=== PATIENT | male | born 1995 | race Caucasian/White ===

== ENCOUNTER 2018-09-15 22:34 | Inpatient (IN) ==
--- NOTE | 2018-09-15 23:04 | Emergency Department Note ---
Disposition Clinical Impression: Dehydration, Elevated bilirubin, Prolonged QT interval, Hypocalcemia, Hypokalemia Disposition: Admitted As Inpatient Condition: Fair Nausea/Vomiting/Diarrhea HPI - General Chief complaint: ED Nausea/Vomiting/Diarrhea Stated complaint: n/v syncope Time Seen by Provider: 09/15/18 22:50 Source: patient, family Mode of arrival: ambulatory Limitations: no limitations Nursing Notes Reviewed: Yes Vital Signs Reviewed: Yes - History of Present Illness HPI Narrative: 23-year-old male past medical history of esophageal strictures for the past 1.5 years with [address] Frederick Holland at this facility. Patient states that he has had long-standing history of intermittent c onstipation, nausea, vomiting for the past 3 days has been getting progressively worse with associated lightheadedness, dizziness, and syncope which occurred prior to presentation this evening. Patient states that he defecated during his syncopal episode but still feels as though he is constipated Patient admits to chest pain, shortness of breath, diffuse abdominal pain, nausea, vomiting, intermittent constipation and diarrhea, patient denies any recent fever/chills, no neck or back pain, no numbness or paresthesias. Pt Subjective Complaint: nausea, vomiting, diarrhea, abdominal pain Onset (ago): day(s) Description of emesis: food contents Associated Abdominal Pain: Yes If pain, Location of pain: diffuse Radiation: diffuse Severity: severe Severity scale (1-10): 10 Quality: stabbing Consistency: Worsening Worsens with: eating Associated symptoms: Reports: chest pain, loss of appetite, nausea/vomiting, shortness of breath - Related Data Previous Rx's Medication Instructions Recorded Metoclopramide [Reglan] 10 mg PO Q6HR PRN #12 tablet 02/08/18 Allergies Allergy/AdvReac Type Severity Reaction Status Date / Time No Known Allergies Allergy Verified 02/08/18 13:03 All systems ED: reviewed and negative except as stated. Review of Systems: As Per HPI Constitutional: Denies: fever, chills Cardiovascular: Reports: chest pain Respiratory: Reports: dyspnea Gastrointestinal: Reports: abdominal pain, nausea, vomiting, diarrhea, constipation. Denies: hematemesis, hematochezia Genitourinary: Denies: hematuria Musculoskeletal: Denies: back pain, neck pain Neurological: Denies: headache, weakness, numbness, paresthesias Past Medical History - Past Medical History Source: patient Medical history: Reports: GERD Surgical history: Reports: appendectomy Psychiatric history: Reports: ADHD - Social History Smoking Status: Current every day smoker Smokeless Tobacco Status: No Alcohol use: Reports: occasionally Drug use: Reports: none Physical Exam - General Limitations: no limitations General appearance: alert, in no apparent distress - Head Head exam: atraumatic, normocephalic, normal inspection - Eye Eye exam: Present: normal appearance, PERRL, EOMI. Absent: scleral icterus - Neck Neck exam: Present: normal inspection, trachea midline - Chest Chest inspection: Present: normal inspection, symmetric chest wall rise - Respiratory Respiratory exam: Present: normal lung sounds bilaterally. Absent: respiratory distress, wheezes, stridor, accessory muscle use, prolonged expiratory phase - Cardiovascular Cardiovascular exam: Present: regular rate, normal rhythm, normal heart sounds, +S1, +S2. Absent: JVD, +S3, +S4 - Abdominal Exam Abdominal exam: Present: soft, tenderness, normal bowel sounds. Absent: distention, guarding, rebound, rigidity, organomegaly - Extremities Exam Extremities exam: Present: normal inspection. Absent: pedal edema - Neurological Exam Neurological exam: Present: alert, oriented X3 - Psychiatric Psychiatric exam: Present: anxious - Skin Skin exam: Present: warm, dry, intact, normal color. Absent: rash, cyanosis, diaphoresis, erythema, pallor, mottled Course Course Narrative: CBC, BMP, EKG/old EKG/troponin CT scan of the abdomen and pelvis Zofran plus phenyl for the management of patient pain and discomfort - Reevaluation(s) Reevaluation #1: Patient refused fentanyl given dose of Toradol Patient complaining of increased mid epigastric pain radiating to his chest EKG shows no acute pathology Patient will be given half milligram of Dilaudid at this time for management of his discomfort. Vital Signs Temperature 97.6 F 09/15/18 22:42 Pulse Rate 106 09/15/18 22:42 Respiratory Rate 18 09/15/18 22:42 Blood Pressure 96/69 09/15/18 22:42 O2 Sat by Pulse Oximetry 99 09/15/18 22:42 Temperature 97.6 F 09/15/18 23:36 Pulse Rate 88 09/16/18 04:23 Respiratory Rate 20 09/16/18 04:23 Blood Pressure 108/70 09/16/18 04:23 O2 Sat by Pulse Oximetry 100 09/16/18 04:23 Oxygen Delivery Oxygen Delivery Room Air Nausea/Vomiting/Diarrhea - [facility] Narrative Medical decision making narrative: Patient admitted to hospitalist medicine service for further evaluation and management of prolonged QT interval with electrolyte abnormalities and hyperbilirubinemia. - Lab Data Lab results reviewed: Yes I reviewed the patient's lab results. Result diagrams: 09/15/18 23:01 09/15/18 23:01 Lab Results 09/15/18 09/15/18 09/15/18 Range/Units 23:01 23:01 23:49 WBC 8.7 (4.3-11.1) K/mcL RBC 5.00 (4.19-5.50) M/mcL Hgb 15.8 (12.9-16.9) g/dL Hct 41.6 (37.5-50.1) % MCV 83.2 (83.0-100.0) fL MCH 31.6 (28.0-33.3) pg MCHC 38.0 H (31.6-35.5) g/dL RDW 12.1 (11.5-14.5) % Plt Count 255 (140-400) K/mcL MPV 10.0 (9.4-12.4) fL Immature Gran % 0.5 (0-4) % Seg Neutrophils % 69.8 % Lymphocytes % 17.4 % Monocytes % 11.4 % Eosinophils % 0.2 % Basophils % 0.7 % Neutrophils # 6.1 (1.6-8.9) K/mcL Lymphocytes # 1.5 (0.6-4.6) K/mcL Monocytes # 1.0 (0.0-1.3) K/mcL Eosinophils # 0.0 (0.0-0.6) K/mcL Basophils # 0.1 (0.0-0.2) K/mcL Immature Plt Fraction 4.6 (1.1-6.1) % Sodium 130 L (136-145) mEq/L Potassium 2.8 L (3.5-5.1) mEq/L Chloride 75 L (98-107) mEq/L Carbon Dioxide 38 H (23-29) mEq/L BUN 30 H (6-20) mg/dL Creatinine 1.34 H (0.70-1.30) mg/dL Est GFR ( Amer) > 60 (> 60) Est GFR (Non-Af Amer) > 60 (> 60) BUN/Creatinine Ratio 22 (6-26) Glucose 121 H (70-105) mg/dL Calculated Osmolality 277 L (280-300) Lactic Acid (0.5-2.2) mmol/L Calcium 10.9 H (8.6-10.3) mg/dL Venous Ioniz Calcium (1.15-1.35) mmol/L Magnesium 2.1 (1.6-2.6) mg/dL Total Bilirubin 2.6 H (0.3-1.0) mg/dL Direct Bilirubin 0.4 H (0.0-0.2) mg/dL Indirect Bilirubin 2.2 H (0.0-1.2) mg/dL AST 26 (13-39) Units/L ALT 13 (7-52) Units/L Alkaline Phosphatase 80 (34-104) Units/L Troponin I < 0.03 (< 0.04) ng/mL Serum Total Protein 9.2 H (6.4-8.9) g/dL Albumin 5.1 (3.5-5.7) g/dL Globulin 4.1 H (2.4-3.5) g/dL Albumin/Globulin Ratio 1.2 (1.1-2.2) Lipase 18 (11-82) Units/L Urine Opiates Screen (Fydukp=242) ng/mL Ur Barbiturates Screen (Ahgqna=195) ng/mL Ur Phencyclidine Scrn (Cutoff=25) ng/mL Ur Amphetamines Screen (Sykfgl=2409) ng/mL U Benzodiazepines Scrn (Zomdkp=529) ng/mL Urine Cocaine Screen (Cutoff= 300) ng/mL U Marijuana (THC) Screen (Cutoff = 50) ng/mL Ur Drug Screen Interp Hepatitis A IgM Ab (Nonreactive) Hep Bs Antigen (Nonreactive) Hep B Core IgM Ab (Nonreactive) Hepatitis C Ab Screen (Nonreactive) 09/15/18 09/15/18 09/16/18 Range/Units 23:49 23:58 00:56 WBC (4.3-11.1) K/mcL RBC (4.19-5.50) M/mcL Hgb (12.9-16.9) g/dL Hct (37.5-50.1) % MCV (83.0-100.0) fL MCH (28.0-33.3) pg MCHC (31.6-35.5) g/dL RDW (11.5-14.5) % Plt Count (140-400) K/mcL MPV (9.4-12.4) fL Immature Gran % (0-4) % Seg Neutrophils % % Lymphocytes % % Monocytes % % Eosinophils % % Basophils % % Neutrophils # (1.6-8.9) K/mcL Lymphocytes # (0.6-4.6) K/mcL Monocytes # (0.0-1.3) K/mcL Eosinophils # (0.0-0.6) K/mcL Basophils # (0.0-0.2) K/mcL Immature Plt Fraction (1.1-6.1) % Sodium (136-145) mEq/L Potassium (3.5-5.1) mEq/L Chloride (98-107) mEq/L Carbon Dioxide (23-29) mEq/L BUN (6-20) mg/dL Creatinine (0.70-1.30) mg/dL Est GFR ( Amer) (> 60) Est GFR (Non-Af Amer) (> 60) BUN/Creatinine Ratio (6-26) Glucose (70-105) mg/dL Calculated Osmolality (280-300) Lactic Acid (0.5-2.2) mmol/L Calcium (8.6-10.3) mg/dL Venous Ioniz Calcium 0.92 L (1.15-1.35) mmol/L Magnesium (1.6-2.6) mg/dL Total Bilirubin (0.3-1.0) mg/dL Direct Bilirubin (0.0-0.2) mg/dL Indirect Bilirubin (0.0-1.2) mg/dL AST (13-39) Units/L ALT (7-52) Units/L Alkaline Phosphatase (34-104) Units/L Troponin I (< 0.04) ng/mL Serum Total Protein (6.4-8.9) g/dL Albumin (3.5-5.7) g/dL Globulin (2.4-3.5) g/dL Albumin/Globulin Ratio (1.1-2.2) Lipase (11-82) Units/L Urine Opiates Screen Negative (Tmushj=439) ng/mL Ur Barbiturates Screen Negative (Rthzjp=645) ng/mL Ur Phencyclidine Scrn Negative (Cutoff=25) ng/mL Ur Amphetamines Screen Negative (Jtskfk=1224) ng/mL U Benzodiazepines Scrn Negative (Boohvm=406) ng/mL Urine Cocaine Screen Negative (Cutoff= 300) ng/mL U Marijuana (THC) Screen Positive H (Cutoff = 50) ng/mL Ur Drug Screen Interp See Below Hepatitis A IgM Ab Nonreactive (Nonreactive) Hep Bs Antigen Nonreactive (Nonreactive) Hep B Core IgM Ab Nonreactive (Nonreactive) Hepatitis C Ab Screen Nonreactive (Nonreactive) 09/16/18 Range/Units 03:16 WBC (4.3-11.1) K/mcL RBC (4.19-5.50) M/mcL Hgb (12.9-16.9) g/dL Hct (37.5-50.1) % MCV (83.0-100.0) fL MCH (28.0-33.3) pg MCHC (31.6-35.5) g/dL RDW (11.5-14.5) % Plt Count (140-400) K/mcL MPV (9.4-12.4) fL Immature Gran % (0-4) % Seg Neutrophils % % Lymphocytes % % Monocytes % % Eosinophils % % Basophils % % Neutrophils # (1.6-8.9) K/mcL Lymphocytes # (0.6-4.6) K/mcL Monocytes # (0.0-1.3) K/mcL Eosinophils # (0.0-0.6) K/mcL Basophils # (0.0-0.2) K/mcL Immature Plt Fraction (1.1-6.1) % Sodium (136-145) mEq/L Potassium (3.5-5.1) mEq/L Chloride (98-107) mEq/L Carbon Dioxide (23-29) mEq/L BUN (6-20) mg/dL Creatinine (0.70-1.30) mg/dL Est GFR ( Amer) (> 60) Est GFR (Non-Af Amer) (> 60) BUN/Creatinine Ratio (6-26) Glucose (70-105) mg/dL Calculated Osmolality (280-300) Lactic Acid 0.5 (0.5-2.2) mmol/L Calcium (8.6-10.3) mg/dL Venous Ioniz Calcium (1.15-1.35) mmol/L Magnesium (1.6-2.6) mg/dL Total Bilirubin (0.3-1.0) mg/dL Direct Bilirubin (0.0-0.2) mg/dL Indirect Bilirubin (0.0-1.2) mg/dL AST (13-39) Units/L ALT (7-52) Units/L Alkaline Phosphatase (34-104) Units/L Troponin I (< 0.04) ng/mL Serum Total Protein (6.4-8.9) g/dL Albumin (3.5-5.7) g/dL Globulin (2.4-3.5) g/dL Albumin/Globulin Ratio (1.1-2.2) Lipase (11-82) Units/L Urine Opiates Screen (Xeiair=396) ng/mL Ur Barbiturates Screen (Grdctx=593) ng/mL Ur Phencyclidine Scrn (Cutoff=25) ng/mL Ur Amphetamines Screen (Piytvm=7529) ng/mL U Benzodiazepines Scrn (Rmnzuk=765) ng/mL Urine Cocaine Screen (Cutoff= 300) ng/mL U Marijuana (THC) Screen (Cutoff = 50) ng/mL Ur Drug Screen Interp Hepatitis A IgM Ab (Nonreactive) Hep Bs Antigen (Nonreactive) Hep B Core IgM Ab (Nonreactive) Hepatitis C Ab Screen (Nonreactive) - Radiology Data Radiology results reviewed: Yes I reviewed the patient's radiology results. Chest X-Ray 09/15/18 23:01 IMPRESSION: No acute disease. D/ / Johnny Arana MD / Johnny Arana MD Interpreting Provider: Johnny Arana MD - EKG Data EKG attestation: Yes I reviewed and interpreted this EKG. EKG results narrative: 1. Patient EKG shows a sinus rhythm with borderline right axis deviation and a prolonged QT interval with a heart of 99 bpm [place] interval of 128 ms, QRS duration of 105 ms, QT/QTc interval 463/595 ms respectively. There are no significant ST segment elevations, depressions, pathologic Q waves, abnormal T-wave inversions, nor any other signs of acute ischemic change. At this time there is no prior EKG available for comparison. 2. 0 400 a.m.: Patient complaining of worsening chest pain Repeat EKG shows sinus rhythm with a slightly prolonged QT interval with a heart of 81 bpm IL interval of 161 ms, QR latter day of 90 ms, QT/QTc interval 506/646 ms, there are no significant ST segment elevations, depressions, patholo gic Q's, abnormal T-wave inversions, or any other signs of acute ischemic change. Patient remained hemodynamically stable. Critical Care Time Critical Care Time: Yes Total Critical Care Time: 45 Attestation: Critical care performed: Time is exclusive of separately billable procedures. Time includes: direct patient care, patient reassessment, coordination of patient care, interpretation of data (laboratory data, radiology data, and respiratory data), review of patient's medical records, medical consultation and documentation of patient care. Procedures included in critical care time: Procedures excluded from critical care time: Attestation Statement - Attestation Attestation: I, Vaibhav Anders DO, examined this patient [id number] and my medical decision-making was reviewed with Dr. Davey Cano, Resident Physician. I agree with the documented findings, disposition and treatment plan as described except to the extent set forth below. I personally supervised and was present for the hale/critical portions of the procedures completed by the resident documented below. Please see my progress notes for details.
[2018-09-15] MEDS ORDERED: 0.9 % Sodium Chloride 500 ML IVC ONE (23:09)
[2018-09-15] MEDS ORDERED: Ondansetron ODT 4 MG TAB.RAPDIS SL ONE (23:10)
[2018-09-15] MEDS ORDERED: Calcium Gluconate 2,000 MG in 0.9 % Sodium Chloride 100 ML IVPB ONE (23:59)
[2018-09-16 00:01] LABS: BUN/Creatinine Ratio 22 (6-26); Blood Urea Nitrogen 30 mg/dL (6-20); Calcium 10.9 mg/dL (8.6-10.3); Carbon Dioxide 38 mEq/L (23-29); Chloride 75 mEq/L (98-107); Glucose 121 mg/dL (70-105); Osmolality,Calculated 277 (280-300); Potassium 2.8 mEq/L (3.5-5.1); Sodium 130 mEq/L (136-145); eGFR For Non-African Americans > 60 (> 60)
[2018-09-16 00:02] LABS: Troponin I < 0.03 ng/mL (< 0.04)
--- NOTE | 2018-09-16 00:07 | Emergency Department Note ---
Disposition Clinical Impression: Dehydration, Elevated bilirubin, Prolonged QT interval, Hypocalcemia, Hypokalemia Disposition: Admitted As Inpatient Condition: Fair Time of Disposition: 03:41 General Adult HPI - General Chief complaint: ED Nausea/Vomiting/Diarrhea Stated complaint: n/v syncope Time Seen by Provider: 09/15/18 22:50 Source: patient, family Mode of arrival: ambulatory Limitations: no limitations - History of Present Illness Pain Scale: 10 - Related Data Previous Rx's Medication Instructions Recorded Metoclopramide [Reglan] 10 mg PO Q6HR PRN #12 tablet 02/08/18 Allergies Allergy/AdvReac Type Severity Reaction Status Date / Time No Known Allergies Allergy Verified 02/08/18 13:03 Constitutional: Denies: fever, chills Cardiovascular: Reports: chest pain Respiratory: Reports: dyspnea Gastrointestinal: Reports: abdominal pain, nausea, vomiting, diarrhea, constipation. Denies: hematemesis, hematochezia Genitourinary: Denies: hematuria Musculoskeletal: Denies: back pain, neck pain Neurological: Denies: headache, weakness, numbness, paresthesias Past Medical History - Past Medical History Medical history: Reports: GERD Surgical history: Reports: appendectomy Psychiatric history: Reports: ADHD - Social History Smoking Status: Never smoker Smokeless Tobacco Status: No Alcohol use: Reports: none, occasionally Drug use: Reports: none Physical Exam - General Limitations: no limitations General appearance: alert, in no apparent distress Course Vital Signs Temperature 97.6 F 09/15/18 22:42 Pulse Rate 106 09/15/18 22:42 Respiratory Rate 18 09/15/18 22:42 Blood Pressure 96/69 09/15/18 22:42 O2 Sat by Pulse Oximetry 99 09/15/18 22:42 Temperature 97.6 F 09/15/18 23:36 Pulse Rate 106 09/15/18 23:36 Respiratory Rate 18 09/15/18 23:36 Blood Pressure 96/69 09/15/18 23:36 O2 Sat by Pulse Oximetry 99 09/15/18 23:36 Oxygen Delivery Oxygen Delivery Room Air Medical Decision Making - Lab Data Result diagrams: 09/15/18 23:01 09/15/18 23:01 Lab Results 09/15/18 09/15/18 09/15/18 Range/Units 23:01 23:01 23:49 WBC 8.7 (4.3-11.1) K/mcL RBC 5.00 (4.19-5.50) M/mcL Hgb 15.8 (12.9-16.9) g/dL Hct 41.6 (37.5-50.1) % MCV 83.2 (83.0-100.0) fL MCH 31.6 (28.0-33.3) pg MCHC 38.0 H (31.6-35.5) g/dL RDW 12.1 (11.5-14.5) % Plt Count 255 (140-400) K/mcL MPV 10.0 (9.4-12.4) fL Immature Gran % 0.5 (0-4) % Seg Neutrophils % 69.8 % Lymphocytes % 17.4 % Monocytes % 11.4 % Eosinophils % 0.2 % Basophils % 0.7 % Neutrophils # 6.1 (1.6-8.9) K/mcL Lymphocytes # 1.5 (0.6-4.6) K/mcL Monocytes # 1.0 (0.0-1.3) K/mcL Eosinophils # 0.0 (0.0-0.6) K/mcL Basophils # 0.1 (0.0-0.2) K/mcL Immature Plt Fraction 4.6 (1.1-6.1) % Sodium 130 L (136-145) mEq/L Potassium 2.8 L (3.5-5.1) mEq/L Chloride 75 L (98-107) mEq/L Carbon Dioxide 38 H (23-29) mEq/L BUN 30 H (6-20) mg/dL Creatinine 1.34 H (0.70-1.30) mg/dL Est GFR ( Amer) > 60 (> 60) Est GFR (Non-Af Amer) > 60 (> 60) BUN/Creatinine Ratio 22 (6-26) Glucose 121 H (70-105) mg/dL Calculated Osmolality 277 L (280-300) Calcium 10.9 H (8.6-10.3) mg/dL Venous Ioniz Calcium (1.15-1.35) mmol/L Total Bilirubin 2.6 H (0.3-1.0) mg/dL Direct Bilirubin 0.4 H (0.0-0.2) mg/dL Indirect Bilirubin 2.2 H (0.0-1.2) mg/dL AST 26 (13-39) Units/L ALT 13 (7-52) Units/L Alkaline Phosphatase 80 (34-104) Units/L Troponin I < 0.03 (< 0.04) ng/mL Serum Total Protein 9.2 H (6.4-8.9) g/dL Albumin 5.1 (3.5-5.7) g/dL Globulin 4.1 H (2.4-3.5) g/dL Albumin/Globulin Ratio 1.2 (1.1-2.2) Lipase 18 (11-82) Units/L Urine Opiates Screen (Bownhx=847) ng/mL Ur Barbiturates Screen (Hxghyu=936) ng/mL Ur Phencyclidine Scrn (Cutoff=25) ng/mL Ur Amphetamines Screen (Fsysbg=1132) ng/mL U Benzodiazepines Scrn (Cvxxiz=239) ng/mL Urine Cocaine Screen (Cutoff= 300) ng/mL U Marijuana (THC) Screen (Cutoff = 50) ng/mL Ur Drug Screen Interp 09/15/18 09/16/18 Range/Units 23:58 00:56 WBC (4.3-11.1) K/mcL RBC (4.19-5.50) M/mcL Hgb (12.9-16.9) g/dL Hct (37.5-50.1) % MCV (83.0-100.0) fL MCH (28.0-33.3) pg MCHC (31.6-35.5) g/dL RDW (11.5-14.5) % Plt Count (140-400) K/mcL MPV (9.4-12.4) fL Immature Gran % (0-4) % Seg Neutrophils % % Lymphocytes % % Monocytes % % Eosinophils % % Basophils % % Neutrophils # (1.6-8.9) K/mcL Lymphocytes # (0.6-4.6) K/mcL Monocytes # (0.0-1.3) K/mcL Eosinophils # (0.0-0.6) K/mcL Basophils # (0.0-0.2) K/mcL Immature Plt Fraction (1.1-6.1) % Sodium (136-145) mEq/L Potassium (3.5-5.1) mEq/L Chloride (98-107) mEq/L Carbon Dioxide (23-29) mEq/L BUN (6-20) mg/dL Creatinine (0.70-1.30) mg/dL Est GFR ( Amer) (> 60) Est GFR (Non-Af Amer) (> 60) BUN/Creatinine Ratio (6-26) Glucose (70-105) mg/dL Calculated Osmolality (280-300) Calcium (8.6-10.3) mg/dL Venous Ioniz Calcium 0.92 L (1.15-1.35) mmol/L Total Bilirubin (0.3-1.0) mg/dL Direct Bilirubin (0.0-0.2) mg/dL Indirect Bilirubin (0.0-1.2) mg/dL AST (13-39) Units/L ALT (7-52) Units/L Alkaline Phosphatase (34-104) Units/L Troponin I (< 0.04) ng/mL Serum Total Protein (6.4-8.9) g/dL Albumin (3.5-5.7) g/dL Globulin (2.4-3.5) g/dL Albumin/Globulin Ratio (1.1-2.2) Lipase (11-82) Units/L Urine Opiates Screen Negative (Mfupgt=788) ng/mL Ur Barbiturates Screen Negative (Rgqplv=319) ng/mL Ur Phencyclidine Scrn Negative (Cutoff=25) ng/mL Ur Amphetamines Screen Negative (Tdhytg=7115) ng/mL U Benzodiazepines Scrn Negative (Loryjr=822) ng/mL Urine Cocaine Screen Negative (Cutoff= 300) ng/mL U Marijuana (THC) Screen Positive H (Cutoff = 50) ng/mL Ur Drug Screen Interp See Below Attestation Statement - Attestation Attestation: I, Vaibhav Anders DO, examined this patient [id number] and my medical decision-making was reviewed with Dr. Davey Cano, Resident Physician. I agree with the documented findings, disposition and treatment plan as described except to the extent set forth below. I personally supervised and was present for the hale/critical portions of the procedures completed by the resident documented below. Please see my progress notes for details. 23-year-old male presents emergency room with complaint of abdominal pain decreased urinary output discomfort dizziness and a syncopal event here today. Patient takes multiple medications for esophageal strictures, constipation. Is followed up with gastroenterology as primary care provider at this facility. He is had significant weight loss as well as decreased by mouth intake. He denies any chest pain or shortness of breath. He has not had any nausea but he does have chronic vomiting and then constipation. Vital signs are stable. Patient is a very thin cachectic appearing male. Does appear to have very poor nutrition. Dentition is poor as well. Trachea is midline. Lungs are clear heart is regular abdomen is soft. He does have tenderness noted diffusely across the abdominal wall. He has decreased bowel output. Extremities are otherwise normal. No signs of trauma or injury. Patient denies any substance abuse history or drug use. He denies any other medications being taken outside of the ones that are prescribed to him. Detailed workup including chest x-ray CT the abdomen CBC chemistry troponin electrolytes will be collected this time. Urine and urine drug screen will also be resulted. Concern is noted for EKG that shows significant only prolonged QTC at over 595. Metabolic sources of being evaluated and treated at this point as well as possible substance abuses. Patient is otherwise stable at this time. Does not gluconate will be given. Disposition will mostly be admission wants a full workup and treatment course I been established. See detailed documentation the physical exam, medical intervention, medical decision-making and disposition in the resident physician's note. No critical care by the patient's treatment course at this time. 0215 CT the abdomen is unremarkable for any acute pathology at this time. Unknown etiology to the elevated bilirubin at this point. Patient on bedside buttock ultrasound completed and we will discuss admission for symptomatic control of his nausea and vomiting along with evaluation for the prolonged QT syndrome. Patient is otherwise clinically stable at this point. Will monitor closely and then disposition will be determined. Patient does have a low calcium which is artery been repleted at this time [address] scan of the abdomen. Bedside buttock ultrasound does not show any visible signs of pericholecystic fluid. Patient has what appears to be an intrahepatic bilirubin related issue. He also is QT prolongation. The hospitalist Dr. Eden reviewed the case. Potassium as well as calcium have been repleted. Patient will be monitored closely until the admission process is completed. No other recommendations or concerns noted. Patient's family was informed and they are comfortable this plan.
[2018-09-16 00:19] LABS: Albumin 5.1 g/dL (3.5-5.7); Albumin/Globulin Ratio 1.2 (1.1-2.2); Bilirubin,Direct 0.4 mg/dL (0.0-0.2); Bilirubin,Indirect 2.2 mg/dL (0.0-1.2); Bilirubin,Total 2.6 mg/dL (0.3-1.0); Globulin 4.1 g/dL (2.4-3.5); Total Protein 9.2 g/dL (6.4-8.9)
[2018-09-16 00:22] LABS: Eosinophils % 0.2 %; Immature Granulocytes % 0.5 % (0-4)
[2018-09-16 00:26] LABS: Basophils # 0.1 K/mcL (0.0-0.2); Basophils % 0.7 %; Hematocrit 41.6 % (37.5-50.1); Hemoglobin 15.8 g/dL (12.9-16.9); Immature Platelets 4.6 % (1.1-6.1); Lymphocytes # 1.5 K/mcL (0.6-4.6); Lymphocytes % 17.4 %; Mean Corpuscular Hemoglobin 31.6 pg (28.0-33.3); Mean Corpuscular Volume 83.2 fL (83.0-100.0); Monocytes % 11.4 %; Neutrophils # 6.1 K/mcL (1.6-8.9); Platelet Count 255 K/mcL (140-400); Red Cell Distribution Width 12.1 % (11.5-14.5); Segmented Neutrophils % 69.8 %
[2018-09-16] MEDS: *HR* FentaNYL (PF) 100 MCG/2 ML VIAL IVP ONE ×2 (00:26→02:06)
[2018-09-16 00:28] LABS: Amphetamine Screen,Urine Negative ng/mL (Cutoff=1000); Barbiturate Screen,Urine Negative ng/mL (Cutoff=200); Benzodiazepines Screen,Urine Negative ng/mL (Cutoff=200); Cannabinoid Screen,Urine Positive ng/mL (Cutoff = 50); Cocaine Screen,Urine Negative ng/mL (Cutoff= 300); Opiate Screen,Urine Negative ng/mL (Cutoff=300); Phencyclidine Screen,Urine Negative ng/mL (Cutoff=25)
[2018-09-16] MEDS ORDERED: Ketorolac 15 MG/ML VIAL IVP ONE (00:46)
[2018-09-16] MEDS ORDERED: 0.9 % Sodium Chloride 1,000 ML IVC ONE (00:46)
[2018-09-16 00:59] LABS: VBG Ionized Calcium 0.92 mmol/L (1.15-1.35)
[2018-09-16 03:38] LABS: Magnesium 2.1 mg/dL (1.6-2.6)
[2018-09-16] MEDS ORDERED: *HR* HYDROmorphone (PF) 1 MG/ML SYRINGE IVP ONE (03:58)
[2018-09-16 04:11] LABS: Hepatitis B Surface Antigen Nonreactive (Nonreactive)
[2018-09-16 04:39] LABS: Hepatitis C Virus Antibody Nonreactive (Nonreactive)
[2018-09-16 04:40] LABS: Hepatitis B Core IgM Nonreactive (Nonreactive)
[2018-09-16 04:41] LABS: Hepatitis A Antibody IgM Nonreactive (Nonreactive)
[2018-09-16] MEDS ORDERED: Naloxone 0.4 MG/ML INJ IVP PRN (05:28)
--- NOTE | 2018-09-16 06:34 | Internal Med History&Physical ---
<Kofi Gardiner P - Last Filed: 09/16/18 06:49> Date of Encounter: 09/16/18 Time of Encounter: 04:45 Internal Medicine - H&P: HPI Chief complaint: Abdominal Pain Admitted From: Home Plans for Post Hospital Care: Home History of present illness: Mr. Calderón is a 23 year old male with past medical history significant for GERD and esophageal stricture who presents for complaints of worsening chronic abdominal pain and episode of syncope. Since May has been having abdominal pain and substernal chest pain that he describes as intermittent and stabbing. Pain is made worse with PO intake. Pain is associated with shortness of breath, feeling like his throat is tightening, nausea, vomiting, constipation, cramping, and dizziness. Denies any blood in vomit or stool. Reports dizziness has been getting worse over past few weeks but never had an episode of syncope until today while standing in his kitchen and grandmother reports he lost consciousness for no longer than a minute. Reports he has vomiting daily and has had 17 pound weight loss in the last 2-3 weeks. Last bowel movement was today but has not had previous significant bowel movement for past two weeks. ER reported EKG as sinus rhythm with prolonged QT interval (initial EKG QT of 463 and QTc of 595) and no signs of ischemic change. ER obtained CT of abdomen/pelvis that was unremarkable and showed no abnormality. In addition to CT, bedside ultrasound was completed which reported no signs of pericholecystic fluid. ER also obtained chest xray which showed no acute disease. ER toxicology screen was negative other than for marijuana. Currently still reporting abdominal and chest pain in ER after receiving toradol and dilaudid. In addition to pain medication, received fluids, electrolyte replacement, and nausea medication while in ER. Currently denies any headache, numbness, tingling, nausea, cough, or chills. Follows regularly with [facility] and PCP for above mentioned problems. Has been told by previous providers that his symptoms may have a psychiatric component as well. Has had 3 dilations, multiple EGD's a nd colonoscopies that he reports has only found esophageal stricture, polyp, and hemorrhoids. Recently sought suggestions for further GI care from his health insurance whom suggested [facility] in [place], [place] whom he recently seen and has outpatient testing scheduled with this week. Denies any alcohol, tobacco, or drug use despite toxicology report previously mentioned. Past Med Surg Social Fam HX - Past Medical History Medical history: GERD Psychiatric history: ADHD - Past Surgical History Surgical History: appendectomy - Social History Smoking Status: Never smoker Smokeless Tobacco Status: No Alcohol use: none, occasionally Drug use: none Internal Medicine - H&P: Meds Metoclopramide [Reglan] 10 mg PO Q6HR PRN #12 tablet 02/08/18 [Rx] Allergy/AdvReac Type Severity Reaction Status Date / Time No Known Allergies Allergy Verified 02/08/18 13:03 All Systems PM: A 10-system review of systems was performed and is negative for pertinent findings except as documented above in the HPI. - Constitutional Vitals: Temp Pulse Resp BP Pulse Ox 97.6 F 88 20 108/70 100 09/15/18 23:36 09/16/18 04:23 09/16/18 04:23 09/16/18 04:23 09/16/18 04:23 Exam: General: Alert and oriented. Appears malnourished. Skin:Pale, no rash, no lesions. HEENT:Pupils equal, round and reactive. Cardiovascular:Normal S1 & S2, no rubs, murmurs or gallops. No JVD. Pulse regular. Lungs:Normal breath sounds, no wheezes or crackles. Abdomen:Soft, tender to palpation throughout, no rigidity, no palpable mass. Extremities:No deformity, no edema or tenderness, no joint swelling or clubbing. Neurological:Normal cognition and motor skills. Pulses:Carotid and radial pulses normal +2. Rest of the physical exam is non contributory. Internal Med - H&P Results - Labs CBC & Chem 7: 09/15/18 23:01 09/15/18 23:01 Labs: Short CBC 09/15/18 Range/Units 23:01 WBC 8.7 (4.3-11.1) K/mcL Hgb 15.8 (12.9-16.9) g/dL Hct 41.6 (37.5-50.1) % Plt Count 255 (140-400) K/mcL Neutrophils # 6.1 (1.6-8.9) K/mcL BMP 09/15/18 23:01 Sodium 130 L Potassium 2.8 L Chloride 75 L Carbon Dioxide 38 H BUN 30 H Creatinine 1.34 H Glucose 121 H Calcium 10.9 H Cardiac Enzymes 09/15/18 Range/Units 23:01 Troponin I < 0.03 (< 0.04) ng/mL Liver Function 09/15/18 Range/Units 23:49 Total Bilirubin 2.6 H (0.3-1.0) mg/dL Direct Bilirubin 0.4 H (0.0-0.2) mg/dL AST 26 (13-39) Units/L ALT 13 (7-52) Units/L Alkaline Phosphatase 80 (34-104) Units/L Albumin 5.1 (3.5-5.7) g/dL - Impressions ITS Impressions Chest X-Ray 09/15/18 23:01 IMPRESSION: No acute disease. D/ / Johnny Arana MD / Johnny Arana MD Interpreting Provider: Johnny Arana MD - Assessment and Plan (1) Abdominal pain Current Visit: Yes Status: Acute Assessment and plan: ER obtained CT abdomen and pelvis and bedside ultrasound no significant finding s. Abdominal ultrasound ordered. GI consult ordered, will need called in a.m. Protonix ordered. NPO. Pain control with PRN pain medications. Received 4L fluid bolus in ER. Continue MIVF. Qualifiers: Abdominal location: generalized Qualified Code(s): R10.84 - Generalized abdominal pain (2) Chest pain Current Visit: Yes Status: Chronic Assessment and plan: Likely secondary to nausea/vomiting. Initial troponin negative, serial troponins ordered. Continuous cardiac monitoring. Echocardiogram ordered. Cardiology consult ordered, will need called in a.m. Qualifiers: Chest pain type: unspecified Qualified Code(s): R07.9 - Chest pain, unspecified (3) Prolonged QT interval Current Visit: Yes Status: Acute Assessment and plan: Likely secondary to electrolyte imbalances. Cardiology consult ordered, will need called in a.m. (4) Increased bilirubin level Current Visit: Yes Status: Acute Assessment and plan: Unclear etiology. Repeat labs ordered. GI consult ordered, will need called in a.m. (5) Hyponatremia Current Visit: Yes Status: Acute Assessment and plan: Likely secondary to poor intake and vomiting. Received 4L bolus in ER. Repeat labs ordered. (6) Hypocalcemia Current Visit: Yes Status: Acute Assessment and plan: Likely secondary to poor intake and vomiting. Replacement ordered in ER. Repeat labs ordered. (7) Hypokalemia Current Visit: Yes Status: Acute Assessment and plan: Likely secondary to poor intake and vomiting. Replacement ordered in ER. Repeat labs ordered. (8) Nausea & vomiting Current Visit: Yes Status: Acute Assessment and plan: NPO. Control with PRN nausea medications. Qualifiers: Vomiting Intractability: unspecified Qualified Code(s): R11.2 - Nausea with vomiting, unspecified (9) Syncope Current Visit: Yes Status: Acute Assessment and plan: Reports single syncopal episode at home. Dehydration vs prolonged QT. Echocardiogram ordered. Orthostatics ordered. Cardiology consult ordered, will need called in a.m. Qualifiers: Syncope type: unspecified Qualified Code(s): R55 - Syncope and collapse - Time Spent With Patient Total time spent is greater than 50% in coordination of care (as documented) at patient's floor/unit and/or counseling patient: <Yash Eden - Last Filed: 09/16/18 07:36> Date of Encounter: 09/16/18 Time of Encounter: 06:10 - Constitutional Constitutional: no chills, no fever(s) - EENT Ears: no ear pain, no tinnitus Nose, mouth and throat: dry mouth, odynophagia, sore throat, no nasal congestion, no sinus pressure - Cardiovascular Cardiovascular ROS IM: chest pain, syncope, no dyspnea, no dyspnea on exertion - Respiratory Respiratory: no cough, no hemoptysis, no chest congestion, no excessive phlegm production - Gastrointestinal Gastrointestinal: abdominal pain, constipation, heartburn, nausea, vomiting, no coffee ground emesis, no hematemesis, no hematochezia, no melena - Genitourinary Genitourinary ROS male: no dysuria, no flank pain, no nocturia - Integumentary Integumentary IM: no rash, no jaundice - Neurological Neurological ROS: dizziness, no focal weakness, no frequent falls, no headac he(s) - Psychiatric Psychiatric: anxiety - Endocrine Endocrine IM: no polydipsia, no polyuria - Constitutional Vitals: Temp Pulse Resp BP Pulse Ox 97.6 F 91 16 141/71 100 09/16/18 05:25 09/16/18 05:25 09/16/18 05:25 09/16/18 05:25 09/16/18 05:25 General appearance: Present: A&O X 3 - Eye Eye exam: Present: EOMI, PERRL. Absent: scleral icterus Pupils: Present: normal accommodation - ENT ENT exam: Present: mucous membranes dry, normal exam Additional comments: temporal wasting - Neck Neck exam general surgery: Present: full ROM, supple, trachea midline. Absent: tenderness, nuchal rigidity, thyromegaly - Respiratory Respiratory exam: Present: CTAB. Absent: chest wall tenderness, rales, rhonchi, wheezes - Cardiovascular Cardiovascular exam: Present: RRR, +S1, +S2. Absent: diastolic murmur, systolic murmur - GI/Abdominal GI/Abdominal exam: Present: soft, tenderness (epigastric). Absent: guarding, hepatomegaly, rebound, splenomegaly, no peritoneal signs - Extremities Exam Extremities exam: Present: full ROM, normal capillary refill, warm, radial pulses palpable and symmetrical. Absent: pedal edema, tenderness - Back Exam Back exam: Absent: CVA tenderness (L), CVA tenderness (R) - Neurological Exam Neurological exam: Present: alert, CN II-XII intact, oriented X3, strengths equal and symetr throughout - Psychiatric Psychiatric exam: Present: anxious Internal Med - H&P Results - Labs CBC & Chem 7: 09/15/18 23:01 09/15/18 23:01 Labs: Short CBC 09/15/18 Range/Units 23:01 WBC 8.7 (4.3-11.1) K/mcL Hgb 15.8 (12.9-16.9) g/dL Hct 41.6 (37.5-50.1) % Plt Count 255 (140-400) K/mcL Neutrophils # 6.1 (1.6-8.9) K/mcL BMP 09/15/18 23:01 Sodium 130 L Potassium 2.8 L Chloride 75 L Carbon Dioxide 38 H BUN 30 H Creatinine 1.34 H Glucose 121 H Calcium 10.9 H Cardiac Enzymes 09/15/18 Range/Units 23:01 Troponin I < 0.03 (< 0.04) ng/mL Liver Function 09/15/18 Range/Units 23:49 Total Bilirubin 2.6 H (0.3-1.0) mg/dL Direct Bilirubin 0.4 H (0.0-0.2) mg/dL AST 26 (13-39) Units/L ALT 13 (7-52) Units/L Alkaline Phosphatase 80 (34-104) Units/L Albumin 5.1 (3.5-5.7) g/dL - Impressions ITS Impressions Chest X-Ray 09/15/18 23:01 IMPRESSION: No acute disease. D/ / Johnny Arana MD / Johnny Arana MD Interpreting Provider: Johnny Arana MD - Assessment and Plan (1) Prolonged QT interval Current Visit: Yes Status: Acute (2) Hypocalcemia Current Visit: Yes Status: Acute (3) Hypokalemia Current Visit: Yes Status: Acute (4) Abdominal pain Current Visit: Yes Status: Acute Qualifiers: Abdominal location: generalized Qualified Code(s): R10.84 - Generalized abdominal pain (5) Chest pain Current Visit: Yes Status: Chronic Qualifiers: Chest pain type: unspecified Qualified Code(s): R07.9 - Chest pain, unspecified (6) Hyponatremia Current Visit: Yes Status: Acute (7) Nausea & vomiting Current Visit: Yes Status: Acute Qualifiers: Vomiting Intractability: unspecified Qualified Code(s): R11.2 - Nausea with vomiting, unspecified (8) Increased bilirubin level Current Visit: Yes Status: Acute (9) Syncope Current Visit: Yes Status: Acute Qualifiers: Syncope type: unspecified Qualified Code(s): R55 - Syncope and collapse - Time Spent With Patient Total time spent is greater than 50% in coordination of care (as documented) at patient's floor/unit and/or counseling patient: - Attending Attestation I discussed the patient case, [place], review of systems, lab data, and imaging findings with Paul Gardiner CNP. I then saw and examined patient independently. I reviewed old records and most recent endoscopy reports as well. He complains of symptoms and pain out of proportion to exam. He has significant nausea vomiting, muscle wasting, temporal wasting, and dehydration. We will proceed with GI consultation, cardio consultation, workup report for GI and cardiac issues. If these are all negative, I highly recommend psychiatry consultation as I am quite concerned about either Munchhausen's disease and/or anorexia nervosa. However, before considering such diagnoses, cardiac and GI workup need to be pursued first. Other than my comments above and documented exam findings, I agree with Paul's assessment and plan.
[2018-09-16] MEDS ORDERED: Pantoprazole 80 MG in 0.9 % Sodium Chloride 50 ML IVPB ONE (06:52)
[2018-09-16] MEDS ORDERED: Potassium Chloride 40 MEQ, Lidocaine 1% 2 ML in D5% in Water 500 ML IVPB ONE ×2 (07:00→21:00)
[2018-09-16 08:09] LABS: Albumin 4.1 g/dL (3.5-5.7); Albumin/Globulin Ratio 1.5 (1.1-2.2); Bilirubin,Direct 0.2 mg/dL (0.0-0.2); Bilirubin,Indirect 1.7 mg/dL (0.0-1.2); Bilirubin,Total 1.9 mg/dL (0.3-1.0); Globulin 2.7 g/dL (2.4-3.5); Total Protein 6.8 g/dL (6.4-8.9)
[2018-09-16 08:18] LABS: Alanine Aminotransferase 10 Units/L (7-52); Albumin 4.1 g/dL (3.5-5.7); Albumin/Globulin Ratio 1.4 (1.1-2.2); Alkaline Phosphatase 62 Units/L (34-104); Aspartate Amino Transferase 22 Units/L (13-39); BUN/Creatinine Ratio 28 (6-26); Blood Urea Nitrogen 27 mg/dL (6-20); Calcium 9.9 mg/dL (8.6-10.3); Carbon Dioxide 35 mEq/L (23-29); Chloride 83 mEq/L (98-107); Globulin 2.9 g/dL (2.4-3.5); Glucose 80 mg/dL (70-105); Osmolality,Calculated 276 (280-300); Potassium 1.9 mEq/L (3.5-5.1); Sodium 131 mEq/L (136-145); eGFR For Non-African Americans > 60 (> 60)
--- NOTE | 2018-09-16 09:03 | Cardiology Consult Note ---
Date of Encounter: 09/16/18 Time of Encounter: 09:00 Assessment and Plan (1) Chest pain Current Visit: Yes Status: Chronic Per Cardiology: Atypical. Reproducible on exam and with palpation with deep inspiration. Troponins negative. Echo pending. Qualifiers: Chest pain type: unspecified Qualified Code(s): R07.9 - Chest pain, unspecified (2) Hypokalemia Current Visit: Yes Status: Acute Per Cardiology: Patient severely hypokalemic. No known history of hypokalemia. Discussed with Dr. Jacquelin Ortega, recommendations for nephrology consult-- consult ordered. Also recommend GI evaluation. (3) Prolonged QT interval Current Visit: Yes Status: Acute Per Cardiology: ECG reveals Dr. Jacquelin Ortega, suspect QT prolongation related to U waves with hypokalemia. Recommend replenish potassium, nephrology consulted, and recs to transfer to higher acuity floor to monitor telemetry until potassium normalized. We will monitor ECG daily. Need to monitor telemetry. (4) Syncope Current Visit: Yes Status: Acute Per Cardiology: Unwitnessed. Occurred and setting of nausea and vomiting with decreased by mouth intake and weight loss. Telemetry shows average heart rate 82, sinus rhythm, no significant events appreciated. Continue to monitor telemetry. Qualifiers: Syncope type: unspecified Qualified Code(s): R55 - Syncope and collapse (5) Nausea & vomiting Current Visit: Yes Status: Chronic Per Cardiology: Apparent history of GERD and esophageal stricture. Had EGD and colonoscopy completed May 2018. Suspect contributing factor to hypokalemia. Recommend GI consult. Qualifiers: Vomiting Intractability: unspecified Qualified Code(s): R11.2 - Nausea with vomiting, unspecified Discussion w patient/family: The assessment and plan as outlined above was discussed with the patient and/or family members who expressed understanding and agreement. All questions were answered. Thank you for involving us in the care of your patient. Please call with any questions. History of Present Illness Consult date: 09/16/18 Consult reason: QT Prolongation, CP, Syncope Chief complaint: CP History of present illness: Mr. Calderón is a 23 year old male with a relevant past medical history of GERD, esophageal stricture, ADHD. Hx of appendectomy. Cardiology consult for chest pain, concerns of QT prolongation, and syncope. Patient seen with family at bedside. He reports chronic midsternal sharp stabbing chest pains constantly for the past one and half years. Symptoms worsened today with palpation and deep inspiration. Denies any recollection of acute trauma. Has not had previous cardiac workup. Reports history of EGD and colonoscopies for his GERD and esophageal stricture. He reports he continues to experience difficulty with swallowing. He reports about a 10-15 pound weight loss over the past few months-- reports baseline weight about 125 pounds. He also reports difficulty with nausea and vomiting and today he felt a flushing sensation in his head reports he fell to the floor and passed out. Denied any loss of bowel or bladder. Was not witnessed. Denies any history of seizures. He denies any alcohol use, nicotine abuse, recreational drug use. Patient has no known history of hypokalemia. Past Med Surg Social Fam HX - Past Medical History Attestation: Yes The following information was validated with the patient. Source: patient, old records reviewed, obtained from family Medical history: GERD Psychiatric history: ADHD - Past Surgical History Surgical History: appendectomy - Social History Smoking Status: Never smoker Smokeless Tobacco Status: No Alcohol use: none, occasionally Drug use: none - Family History Paternal Grandfather Hx Family Cardiac Disorders: Yes ([place]) Hx Family Endocrine Disorder: Yes (Diabetes) Paternal Grandmother Hx Family Cancer: Yes (colon) Hx Family Endocrine Disorder: Yes (diabetes) Father Hx Family Cardiac Disorders: Yes Medications and Allergies Metoclopramide [Reglan] 10 mg PO Q6HR PRN #12 tablet 02/08/18 [Rx] Allergy/AdvReac Type Severity Reaction Status Date / Time No Known Allergies Allergy Verified 02/08/18 13:03 All Systems Review: The remainder of the systems were reviewed and are negative - Constitutional Constitutional: weakness, weight loss - Cardiovascular Cardiovascular: as per HPI, chest pain at rest - Gastrointestinal Gastrointestinal: constipation, dysphagia, nausea Physical Examination Vital Signs, Last 4 Hours Temp Pulse Resp BP Pulse Ox 09/16/18 07:54 98.1 F 96 19 96/56 97 09/16/18 05:25 97.6 F 91 16 141/71 100 General: Conversant, No Apparent Distress, Other (emaciated) HEENT: Atraumatic, Normocephaly, Mucus Membranes Moist Neck: No JVD, Normal carotid pulses Cardiac: Reg Rate and Rhythm, Normal S1 and S2, No Murmur Lungs: Normal Breath Sounds, No Wheeze, Rales, Rhonchi Neuro: Alert and responsive, No focal deficits noted Abdomen: Soft, Non-Tender Skin: No rashes noted on visualized skin Musculoskeletal: No Chest Wall Tenderness Extremities: No Clubbing, No Cyanosis, No Edema, Normal Pulses Results 09/15/18 23:01 09/16/18 06:31 Lab Results Laboratory Tests 09/15/18 09/15/18 09/15/18 23:01 23:01 23:58 Hgb 15.8 Hct 41.6 Potassium 2.8 L Creatinine Est GFR (Non-Af Amer) Magnesium AST ALT Troponin I < 0.03 U Marijuana (THC) Screen Positive H 09/16/18 09/16/18 09/16/18 06:31 08:58 08:58 Hgb Hct Potassium 1.9 L* D Creatinine 0.96 Est GFR (Non-Af Amer) > 60 Magnesium 1.7 AST 22 ALT 10 Troponin I < 0.03 U Marijuana (THC) Screen ITS Impressions Chest X-Ray 09/15/18 23:01 IMPRESSION: No acute disease. D/ / Johnny Arana MD / Johnny Arana MD Interpreting Provider: Johnny Arana MD Active Medications Potassium Chloride 40 meq/ (Lidocaine 2 ml/ Dextrose) 522 mls @ 130.5 mls/hr IVPB ONCE ONE Stop: 09/16/18 10:59 Last Admin: 09/16/18 08:25 Dose: 130.5 mls/hr Documented by: Potassium Chloride/Sodium Chloride (Kcl 40meq In 0.9% Sodium Chloride) 40 meq in 1,000 mls @ 125 mls/hr IVC .Q8H STUART Stop: 03/18/19 08:46 Naloxone HCl (Narcan) 0.4 mg IVP Q2MPRN PRN PRN Reason: SEE COMMENTS Stop: 03/18/19 05:29 - Imaging and Cardiology Echo: pending - EKG Interpretation EKG results cardiology: personally reviewed (reviewed with Dr. Jacquelin Ortega) Consult Discharge Plan - Plan Referrals: Jennifer,Juliocesar D, DO [Primary Care Provider] - (Appointment has been requested. )
[2018-09-16 09:14] LABS: VBG Ionized Calcium 1.01 mmol/L (1.15-1.35)
[2018-09-16 11:06] LABS: Hematocrit 32.4 % (37.5-50.1); Hemoglobin 12.2 g/dL (12.9-16.9); Mean Corpuscular Hemoglobin 31.4 pg (28.0-33.3); Mean Corpuscular Volume 83.5 fL (83.0-100.0); Mean Platelet Volume 9.4 fL (9.4-12.4); Platelet Count 184 K/mcL (140-400); Red Blood Count 3.88 M/mcL (4.19-5.50); Red Cell Distribution Width 12.6 % (11.5-14.5)
[2018-09-16 11:07] LABS: Mean Corpuscular HGB Conc 37.7 g/dL (31.6-35.5)
[2018-09-16] MEDS: 0.9 % Sodium Chloride w KCl 40 MEQ/1,000 ML MLS IVC SCH ×2 (11:19→20:01)
--- NOTE | 2018-09-16 15:35 | Event Note ---
Date of Encounter: 09/16/18 Time of Encounter: 15:34 Evaluated patient earlier today. Continue to keep nothing by mouth. IV fluids. Replace potassium aggressively. Will give a dose of magnesium sulfate and also calcium gluconate. Antiemetics as needed. Recheck potassium levels after supplementation. Monitor vital signs closely. Patient's urine drug screen was positive for marijuana. Suspect cannabinoid hyperemesis syndrome.
[2018-09-16 21:22] LABS: VBG Ionized Calcium 1.05 mmol/L (1.15-1.35)
[2018-09-16 21:52] LABS: BUN/Creatinine Ratio 22 (6-26); Blood Urea Nitrogen 18 mg/dL (6-20); Calcium 8.6 mg/dL (8.6-10.3); Carbon Dioxide 30 mEq/L (23-29); Chloride 96 mEq/L (98-107); Glucose 93 mg/dL (70-105); Osmolality,Calculated 280 (280-300); Potassium 2.5 mEq/L (3.5-5.1); Sodium 134 mEq/L (136-145); eGFR For Non-African Americans > 60 (> 60)
--- NOTE | 2018-09-16 22:50 | Nephrology Consult Note ---
Date of Encounter: 09/16/18 Time of Encounter: 12:00 Past Med Surg Social Fam HX - Past Medical History Medical history: GERD Psychiatric history: ADHD - Past Surgical History Surgical History: appendectomy - Social History Smoking Status: Never smoker Smokeless Tobacco Status: No Alcohol use: none, occasionally Drug use: none - Family History Paternal Grandfather Hx Family Cardiac Disorders: Yes ([place]) Hx Family Endocrine Disorder: Yes (Diabetes) Paternal Grandmother Hx Family Cancer: Yes (colon) Hx Family Endocrine Disorder: Yes (diabetes) Father Hx Family Cardiac Disorders: Yes Medications and Allergies Hydrocortisone [Proctosol-Hc] 1 appl RC BID PRN 09/16/18 [History] Hydrocortisone/Pramoxine [Analpram Hc 2.5%-1% Lotion] 1 appl RC TID PRN 09/16/18 [History] Pantoprazole Sodium 40 mg PO DAILY 09/16/18 [History] dimenhyDRINATE [Dramamine] 50 mg PO DAILY PRN 09/16/18 [History] Allergy/AdvReac Type Severity Reaction Status Date / Time No Known Allergies Allergy Verified 02/08/18 13:03 Exam - Vital Signs Vital signs: Initial Vital Signs Temp Pulse Resp BP Pulse Ox 97.6 F 106 18 96/69 99 09/15/18 22:42 09/15/18 22:42 09/15/18 22:42 09/15/18 22:42 09/15/18 22:42 Vital Signs - Last 8 Hours Temp Pulse Resp BP Pulse Ox 09/16/18 20:13 98.5 F 80 17 98/65 100 Intake and Output 09/16/18 09/16/18 09/16/18 07:59 15:59 23:59 Intake Total 1830 / 3768 626 / 3768 1312 / 3768 Output Total 550 / 550 Balance 1830 / 3218 626 / 3218 762 / 3218 Intake: IV Fluids 1830 / 3768 626 / 3768 1312 / 3768 0.9 % Sodium Chloride 1,000 ML 1000 / 1000 @ 3750 mls/hr IVC .Q16M ONE Rx# :[id number] 0.9 % Sodium Chloride 500 ML @ 500 / 500 999 mls/hr IVC .Q31M ONE Rx#: [id number] KCl 40mEq in 0.9% Sodium 1202 / 1202 Chloride 40 meq In 1,000 ml @ 125 mls/hr IVC .Q8H [facility] Rx#: [id number] Calcium Gluconate 1,000 MG In 0 230 / 340 110 / 340 .9 % Sodium Chloride 100 ML @ 220 mls/hr IVPB ONCE ONE Rx#: [id number] Magnesium Sulfate 2 GM In 0.9 % 104 / 104 Sodium Chloride 100 ML @ 104 mls/hr IVPB ONCE ONE Rx#: [id number] Potassium Chloride 10 mEq/100mL 100 / 100 10 meq In 100 ml @ 100 mls/hr IVPB Q1H [facility] Rx#:[id number] KCl 40 MEQ Xylocaine 2 ML In 522 / 522 Dextrose 5% 500 ML @ 130.5 mls/ hr IVPB ONCE ONE Rx#:[id number] Oral 0 / 0 Output: Urine 550 / 550 Other: Meal Lunch Percent of Meal Consumed 0% # Voids 0 Weight 47.9 kg 51 kg Patient Weight 09/16/18 23:59 Weight 51 kg Results - Lab Results 09/16/18 06:31 09/16/18 21:05 Most recent lab results 09/16/18 09/16/18 21:05 21:05 Calcium 8.6 Magnesium 1.8 Consult Discharge Plan - Plan Referrals: Juliocesar Rodriguez DO [Primary Care Provider] - (Appointment has been requested. )
[2018-09-16] MEDS: Lidocaine Viscous Oral Soln 15 ML SOLUTION MM PRN (23:56)
[2018-09-17] MEDS ORDERED: Ketorolac 15 MG/ML VIAL IVP ONE (00:28)
[2018-09-17 04:50] LABS: VBG Ionized Calcium 1.12 mmol/L (1.15-1.35)
[2018-09-17 05:12] LABS: BUN/Creatinine Ratio 22 (6-26); Blood Urea Nitrogen 17 mg/dL (6-20); Calcium 8.7 mg/dL (8.6-10.3); Carbon Dioxide 30 mEq/L (23-29); Chloride 97 mEq/L (98-107); Glucose 87 mg/dL (70-105); Magnesium 2.1 mg/dL (1.6-2.6); Osmolality,Calculated 281 (280-300); Potassium 2.6 mEq/L (3.5-5.1); Sodium 135 mEq/L (136-145); eGFR For Non-African Americans > 60 (> 60)
[2018-09-17 05:37] LABS: Basophils % 0.8 %; Eosinophils # 0.1 K/mcL (0.0-0.6); Eosinophils % 1.2 %; Hematocrit 29.9 % (37.5-50.1); Hemoglobin 11.1 g/dL (12.9-16.9); Immature Granulocytes % 0.2 % (0-4); Immature Platelets 3.3 % (1.1-6.1); Lymphocytes # 1.7 K/mcL (0.6-4.6); Lymphocytes % 32.8 %; Mean Corpuscular Hemoglobin 31.2 pg (28.0-33.3); Mean Platelet Volume 9.8 fL (9.4-12.4); Monocytes # 0.4 K/mcL (0.0-1.3); Monocytes % 8.5 %; Neutrophils # 2.8 K/mcL (1.6-8.9); Platelet Count 134 K/mcL (140-400); Red Blood Count 3.56 M/mcL (4.19-5.50); Red Cell Distribution Width 12.2 % (11.5-14.5); Segmented Neutrophils % 56.5 %
[2018-09-17 05:38] LABS: Mean Corpuscular HGB Conc 37.1 g/dL (31.6-35.5)
[2018-09-17] MEDS ORDERED: Pantoprazole 40 MG VIAL IVP ONE (05:46)
[2018-09-17] MEDS ORDERED: Potassium Chloride 40 MEQ, Lidocaine 1% 2 ML in D5% in Water 500 ML IVPB ONE ×2 (07:53→18:45)
--- NOTE | 2018-09-17 07:56 | Internal Med Progress Note ---
<Emeka Okeefe - Last Filed: 09/17/18 12:37> Hospitalist Progress Note - Encounter Date of Encounter: 09/17/18 Time of Encounter: 10:20 - Exam Vitals: Temp Pulse Resp BP Pulse Ox 97.9 F 78 17 101/61 100 09/17/18 07:48 09/17/18 07:48 09/17/18 07:48 09/17/18 07:48 09/17/18 07:48 - Assessment and Plan (1) Prolonged QT interval Current Visit: Yes Status: Acute (2) Hypocalcemia Current Visit: Yes Status: Acute (3) Hypokalemia Current Visit: Yes Status: Acute (4) Abdominal pain Current Visit: Yes Status: Acute (5) Chest pain Current Visit: Yes Status: Chronic (6) Hyponatremia Current Visit: Yes Status: Acute (7) Nausea & vomiting Current Visit: Yes Status: Chronic (8) Increased bilirubin level Current Visit: Yes Status: Acute (9) Syncope Current Visit: Yes Status: Acute - Time Spent with Patient Total time spent is greater than 50% in coordination of care (as documented) at patient's floor/unit and/or counseling patient: Internal Medicine: Result - Labs CBC & Chem 7: 09/17/18 04:15 09/17/18 04:15 Labs: Short CBC 09/17/18 Range/Units 04:15 WBC 5.0 (4.3-11.1) K/mcL Hgb 11.1 L (12.9-16.9) g/dL Hct 29.9 L (37.5-50.1) % Plt Count 134 L (140-400) K/mcL Neutrophils # 2.8 (1.6-8.9) K/mcL BMP 09/16/18 09/16/18 09/16/18 14:59 19:53 21:05 Sodium 134 L Potassium 2.3 L* 2.1 L* 2.5 L* Chloride 96 L Carbon Dioxide 30 H BUN 18 Creatinine 0.81 Glucose 93 Calcium 8.6 09/17/18 04:15 Sodium 135 L Potassium 2.6 L Chloride 97 L Carbon Dioxide 30 H BUN 17 Creatinine 0.79 Glucose 87 Calcium 8.7 Cardiac Enzymes 09/16/18 Range/Units 14:59 Troponin I < 0.03 (< 0.04) ng/mL - Impressions Impressions Gallbladder Ultrasound 09/17/18 08:00 IMPRESSION: Small amount of sludge in the gallbladder. D/ / 09/17/2018 10:52:50 Gadiel Cruz MD / Anne Shay Interpreting Provider: Gadiel Cruz MD Consult Discharge Plan - Plan Referrals: Juliocesar Rodriguez DO [Primary Care Provider] - (Appointment has been requested. ) - Attending Attestation I saw evaluated and examined this patient and my medical decision-making was reviewed with the Resident Physician, Saul Boo. I agree with the documented findings, disposition and treatment plan as described except to any changes set forth below. We independently had [id number] contact with the patient. Patient continues to have multiple complaints. Reports chest pain this morning. Also complains of swelling in his throat and feeling as if his throat is clos ing off. Continues to have nausea. Also reports abdominal pain. Denies any anxiety or depression symptoms. Has been mainly nothing by mouth overnight due to EGD and ultrasound scheduled for today. General: Patient is alert, mild distress, oriented x 3, underweight ENT: Mucous membranes dry Respiratory: Good respiratory effort. Normal breath sounds. No wheezing or crackles. Cardiovascular: Regular rate and rhythm. s1 and s2 normal No clicks, rubs, gallops, or murmurs. No pedal edema Abdomen: Abdomen is soft, tender in the epigastric region. Bowel sounds are present Musculoskeletal: Spontaneously moving all extremities Skin: warm, dry, intact. Neuro: Alert oriented x 3 normal cranial nerves, no focal deficits Abdominal pain: Discussed with GI. Patient apparently has history of gastroparesis. Treat symptomatically. Chest pain: Troponins negative. Likely reflux related. Treat symptomatically. Will place patient on PPI intravenously. Intractable nausea and vomiting: Continue antiemetics as needed. Plan for EGD today. Keep nothing by mouth. Hypokalemia: Continue potassium supplements. Potassium levels remain low. Hyponatremia: Sodium 135 today. Improved. Prolonged QT interval: Likely due to multiple electrolyte abnormalities. We will continue to replete. Target potassium levels of 4. Syncope: Likely orthostatic syncope. No further episodes. Continue to monitor with telemetry. Anemia and thrombocytopenia/bicytopenia: Likely due to nutritional deficiencies. Patient not receiving any medical anticoagulation for DVT prophylaxis. Will check iron, folic acid and B12 levels. <Saul Boo - Last Filed: 09/17/18 15:16> Hospitalist Progress Note - Encounter Date of Encounter: 09/17/18 - Subjective Interval History: Patient resting comfortably in bed at time of examination. He does not appear significantly anxious at this time. He says that he had no events overnight although he continues to have abdominal pain which is epigastric in region. He is accompanied by his grandmother who says that she feels like he is being experimented on because nobody can seem to figure out what is going on with him. - Exam Vitals: Temp Pulse Resp BP Pulse Ox 97.9 F 78 17 101/61 100 09/17/18 07:48 09/17/18 07:48 09/17/18 07:48 09/17/18 07:48 09/17/18 07:48 Exam: General: Alert and oriented. Appears malnourished. Skin:Pale, no rash, no lesions. HEENT:Pupils equal, round and reactive. Cardiovascular:Normal S1 & S2, no rubs, murmurs or gallops. No JVD. Pulse regular. Lungs:Normal breath sounds, no wheezes or crackles. Abdomen:Soft, tender to palpation throughout, no rigidity, no palpable mass. Extremities:No deformity, no edema or tenderness, no joint swelling or clubbing. Neurological:Normal cognition and motor skills. Pulses:Carotid and radial pulses normal +2. Rest of the physical exam is non contributory. - Assessment and Plan (1) Hypokalemia Current Visit: Yes Status: Acute Assessment and Plan: Continued hypokalemia. Replete with PO and IV potassium. Mag has been corrected. Recheck potassium in afternoon. (2) Prolonged QT interval Current Visit: Yes Status: Acute Assessment and Plan: Likely secondary to electrolyte imbalances. Cardiology consult (3) Hypocalcemia Current Visit: Yes Status: Acute Assessment and Plan: Likely secondary to poor intake and vomiting. Replacement ordered in ER. Repeat labs ordered. (4) Abdominal pain Current Visit: Yes Status: Acute Assessment and Plan: ER obtained CT abdomen and pelvis and bedside ultrasound no significant findings. Abdominal ultrasound ordered. Protonix ordered. NPO. Pain control with PRN pain medications. (5) Chest pain Current Visit: Yes Status: Chronic Assessment and Plan: Likely secondary to nausea/vomiting. (6) Hyponatremia Current Visit: Yes Status: Resolved (7) Nausea & vomiting Current Visit: Yes Status: Chronic Assessment and Plan: NPO. Control with PRN nausea medications. - Time Spent with Patient Total time spent is greater than 50% in coordination of care (as documented) at patient's floor/unit and/or counseling patient: Plan of Care Discussed with: patient Internal Medicine: Result - Labs CBC & Chem 7: 09/17/18 04:15 09/17/18 04:15 Labs: Short CBC 09/16/18 09/17/18 Range/Units 06:31 04:15 WBC 6.8 5.0 (4.3-11.1) K/mcL Hgb 12.2 L D 11.1 L (12.9-16.9) g/dL Hct 32.4 L 29.9 L (37.5-50.1) % Plt Count 184 134 L (140-400) K/mcL Neutrophils # 2.8 (1.6-8.9) K/mcL BMP 09/16/18 09/16/18 09/16/18 06:31 14:59 19:53 Sodium 131 L Potassium 1.9 L* D 2.3 L* 2.1 L* Chloride 83 L Carbon Dioxide 35 H BUN 27 H Creatinine 0.96 Glucose 80 Calcium 9.9 09/16/18 09/17/18 21:05 04:15 Sodium 134 L 135 L Potassium 2.5 L* 2.6 L Chloride 96 L 97 L Carbon Dioxide 30 H 30 H BUN 18 17 Creatinine 0.81 0.79 Glucose 93 87 Calcium 8.6 8.7 Cardiac Enzymes 09/16/18 09/16/18 Range/Units 08:58 14:59 Troponin I < 0.03 < 0.03 (< 0.04) ng/mL Liver Function 09/16/18 09/16/18 Range/Units 06:31 06:31 Total Bilirubin 2.0 H 1.9 H (0.3-1.0) mg/dL Direct Bilirubin 0.2 (0.0-0.2) mg/dL AST 22 21 (13-39) Units/L ALT 10 10 (7-52) Units/L Alkaline Phosphatase 62 61 (34-104) Units/L Albumin 4.1 4.1 (3.5-5.7) g/dL - Impressions Impressions Echocardiogram 09/16/18 06:52 Impressions: LVEF 60-65%. Normal LV chamber size, wall thickness and function. Grossly normal right ventricular size and function. Mild tricuspid regurgitation. No pulmonary hypertension. Left Ventricular Wall Motion: Rest Echo Findings All wall segments showed normal motion. Findings: Study Quality * Technically sub-optimal due to poor echocardiographic windows. ECG Findings * Normal sinus rhythm. Left Ventricle * LVEF 60-65%. * Normal LV chamber size, wall thickness and systolic function. * Normal left ventricular diastolic function. Right Ventricle * RV not well visualized, grossly normal right ventricular size and function. Left Atrium * Normal left atrial size. Right Atrium * Normal right atrial size. Interatrial Septum * Interatrial septum not well evaluated. * No evidence of PFO by color Doppler. Aortic Valve * Aortic valve not well visualized. * No aortic stenosis. * No aortic regurgitation. Mitral Valve * Normal mitral valve structure. * No mitral stenosis. * No mitral regurgitation. Tricuspid Valve * Normal tricuspid valve structure. * No tricuspid stenosis. * Mild tricuspid regurgitation. * Estimated RVSP is 20 mmHg. * Estimated RA pressure is 8 mmHg. * No pulmonary hypertension. Pulmonic Valve * Pulmonic valve is not well visualized. * No pulmonic stenosis. * Trace pulmonic regurgitation. Aorta * Normally sized aortic root. Pericardium * The pericardium appears normal. IVC * The IVC is not dilated. * < 50% respiratory change. <Emeka Okeefe - Last Filed: 09/17/18 12:37> (4) Abdominal pain Qualifiers: Abdominal location: generalized Qualified Code(s): R10.84 - Generalized abdominal pain (5) Chest pain Qualifiers: Chest pain type: unspecified Qualified Code(s): R07.9 - Chest pain, unspecified (7) Nausea & vomiting Qualifiers: Vomiting Intractability: unspecified Qualified Code(s): R11.2 - Nausea with vomiting, unspecified (9) Syncope Qualifiers: Syncope type: unspecified Qualified Code(s): R55 - Syncope and collapse <Saul Boo - Last Filed: 09/17/18 15:16> (4) Abdominal pain Qualifiers: Abdominal location: generalized Qualified Code(s): R10.84 - Generalized abdominal pain (5) Chest pain Qualifiers: Chest pain type: unspecified Qualified Code(s): R07.9 - Chest pain, unsp ecified (7) Nausea & vomiting Qualifiers: Vomiting Intractability: unspecified Qualified Code(s): R11.2 - Nausea with vomiting, unspecified
--- NOTE | 2018-09-17 10:29 | Electrocardiograph Report ---
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
--- NOTE | 2018-09-17 10:46 | Electrocardiograph Report ---
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
[2018-09-17] MEDS ORDERED: *HR* Propofol 200 MG/20 ML VIAL IVP ONE ×2 (12:19→12:26)
[2018-09-17] MEDS ORDERED: Lidocaine -MPF 2% 2 ML VIAL ONE (12:26)
--- NOTE | 2018-09-17 12:41 | Anesthesia Evaluation PreOp ---
Date of Encounter: 09/17/18 Time of Encounter: 13:14 - Past History Planned Operation: EGD (nausea/vomiting/severe hypokalemia) Cardiac History: Angina (with findings of admission potassium of 1.9) Pulmonary History: Smoker MARKER MACHINE History: Seizures (? possibly), Other (THC use) Other Medical History: Renal (being evaluated for kidney issues this admission), GERD (hx esophageal stricture; current with severe nausea/vomiting/weight loss), Other (severe hypokalemia) Anesthesia History: No Prior Anesthetic Complications, Past Anesthesia (EGD, EGD/colonoscopy, appendectomy) Alcohol Use: none, occasionally Drug use: none Medications and Allergies Hydrocortisone [Proctosol-Hc] 1 appl RC BID PRN 09/16/18 [History] Hydrocortisone/Pramoxine [Analpram Hc 2.5%-1% Lotion] 1 appl RC TID PRN 09/16/18 [History] Pantoprazole Sodium 40 mg PO DAILY 09/16/18 [History] dimenhyDRINATE [Dramamine] 50 mg PO DAILY PRN 09/16/18 [History] Allergy/AdvReac Type Severity Reaction Status Date / Time No Known Allergies Allergy Verified 02/08/18 13:03 - Meds/Allergy Pre-op Review Medications Reviewed: Yes Allergies Reviewed: Yes Beta Blockers on Current Med List: No Anesthesia Results - Labs 09/17/18 04:15 09/17/18 04:15 - Imaging EKG: report reviewed, image reviewed (Sinus rhythm Probable anterior infarct, age indeterminate Prolonged QT interval) Additional studies: 09-16-18 Cardiology consult: I have personally performed a face to face evaluation on this patient. I have reviewed and agree with the care plan. History and Exam by me shows: Chest pain atypical for angina. Suspect GI in etiology. EKG changes likely related to profound hypokalemia- K 1.9. Potassium repletion in progress. Target K > 4.5. Monitor closely on telemetry for arrhythmias. 09-16-18 TTE: Impressions: LVEF 60-65%. Normal LV chamber size, wall thickness and function. Grossly normal right ventricular size and function. Mild tricuspid regurgitation. No pulmonary hypertension. Anesthesia Exam Last Vital Signs Temp 97.9 F 09/17/18 07:48 Pulse 78 09/17/18 07:48 Resp 17 09/17/18 07:48 BP 101/61 09/17/18 07:48 Pulse Ox 100 09/17/18 07:48 Weight: 52 kg - HEENT Pupil (Motor): Pupils equal, EOMI Mallampati: I Teeth: Missing, Poor dentition (very poor dentition) Oral Opening: Greater than 3 - MARKER MACHINE LOC: Oriented - Cardiac Rhythm: Regular Murmur: None - Pulmonary Breath Sounds: bilateral Clear Respiratory Effort: Symmetrical Anesthesia Assess/Plan ASA Score: 3 Level of consciousness: Cooperative, Anxious Anesthetic Plan: MAC Monitoring Plan: Standard Monitors Recovery Plan: PACU
[2018-09-17] MEDS ORDERED: Simethicone 40 MG/0.6 ML MLS IR ONE (13:06)
--- NOTE | 2018-09-17 13:21 | Event Note ---
Date of Encounter: 09/17/18 Time of Encounter: 13:20 - Cardiology Event Note QTc prolonged on presented in the setting of hypokalemia. Repeat ECG this am with QT 386, QTc 431ms, significantly improved. Recommend continued potassium replacement, for K greater than 4.5. Cardiology will sign off, re-consult if ne eded.
--- NOTE | 2018-09-17 14:15 | Gastroenterology Consult Note ---
<Saul Slade - Last Filed: 09/17/18 14:13> Date of Encounter: 09/17/18 Time of Encounter: 10:35 - Assessment and plan (1) Gastroparesis Current Visit: Yes Status: Acute Assessment and plan: Noted on EGD 05/21/[address] Jasso. 1. Small frequent meals 2. Avoid fried and fatty foods 3. Chew food well 4. Blenderize food when symptomatic 5. Reduce or avoid high-fiber foods and medications 6. Avoid raw vegetables 7. If you have diabetes, keep blood sugars well controlled 8. Avoid medications that can delay gastric emptying such as narcotics, high- fiber medications, and high-fiber foods (2) Hypokalemia Current Visit: Yes Status: Acute Assessment and plan: Management per primary team. (3) Abdominal pain Current Visit: Yes Status: Acute Assessment and plan: Continue PPI. Plan for EGD to r/o esophagitis, gastritis, duodenitis, PUD, MW tear, or AVM. Qualifiers: Abdominal location: generalized Qualified Code(s): R10.84 - Generalized abdominal pain (4) Nausea & vomiting Current Visit: Yes Status: Chronic Assessment and plan: Secondary to gastroparesis and GERD. Continue PPI and plan for EGD. Avoid all forms of marijuana. Consider anti-emetics once hypokalemia and prolonged QTc are resolved. Qualifiers: Vomiting Intractability: unspecified Qualified Code(s): R11.2 - Nausea with vomiting, unspecified (5) Prolonged QT interval Current Visit: Yes Status: Acute - Time Spent With Patient Total time spent is greater than 50% in coordination of care (as documented) at patient's floor/unit and/or counseling patient: GI History of Present Illness - Data of Consult Patient: known to practice within the last 3 years Consult date: 09/17/18 Requesting Physician: Yash Eden MD - Consult Narrative Reason for consult: Abd pain, N/V History of present illness: Mr. Calderón is a 23 year old male with PMHx of GERD, gastroparesis, esophageal stricture who presented with complaints of abdominal pain, nausea, and vomiting. He has lost 14 lbs since 08/07/2018 (weight during OV 118 lbs). Reports dizziness has been getting worse over past few weeks, had an episode of syncope while standing in his kitchen and grandmother reports he lost consciousness for no longer than a minute. CT A/P with no acute abnormality. ED toxicology positive for marijuana. Potassium on admission 2.8, which dropped to 1.9 on 09/16, today K 2.6. EGD 05/21/2018 Dr. Jasso: Esophageal stenosis which was dilated, gastroparesis, gastritis. Colonoscopy 05/21/2018 Dr. Jasso: 13 mm tubular adenoma, internal hemorrhoids. EGD 12/22/2017 Dr. Dee: LA grade A reflux esophagitis. NSAIDs: None Anticoagulation: None Past Med Surg Social Fam HX - Past Medical History Medical history: GERD Psychiatric history: ADHD - Past Surgical History Surgical History: appendectomy - Social History Smoking Status: Never smoker Smokeless Tobacco Status: No Alcohol use: none, occasionally Drug use: none - Family History Paternal Grandfather Hx Family Cardiac Disorders: Yes (AR) Hx Family Endocrine Disorder: Yes (Diabetes) Paternal Grandmother Hx Family Cancer: Yes (colon) Hx Family Endocrine Disorder: Yes (diabetes) Father Hx Family Cardiac Disorders: Yes - Gastrointestinal Gastrointestinal: Present: as per HPI - Constitutional Constitutional: as per HPI - EENT Eyes: as per HPI Ears: Present: as per HPI Nose, mouth and throat: Present: as per HPI - Cardiovascular Cardiovascular ROS: Present: as per HPI - Respiratory Respiratory IM: Present: as per HPI - Genitourinary Genitourinary: Absent: change in color, Urinary frequency - Neurological ROS Neurological GI: Present: as per HPI - Hematologic/Lymphatic Hematologic/Lymphatic pediatric: Present: as per HPI - Musculoskeletal Musculoskeletal ROS GI: Present: as per HPI - Integumentary Integumentary GI: Present: as per HPI - Psychiatric ROS Psychiatric GI: Present: as per HPI - Endocrine Endocrine IM: Present: as per HPI - Constitutional Vitals: Temp Pulse Resp BP Pulse Ox 99.1 F 50 18 110/66 100 09/17/18 13:04 09/17/18 13:04 09/17/18 13:04 09/17/18 13:04 09/17/18 13:04 General appearance: Present: cooperative, A&O X 3, no acute distress, answers questions appropriately - Head Head exam: Present: atraumatic, normocephalic - Eye Eye exam: Present: normal appearance, sclera anicteric - ENT ENT exam: Present: mucous membranes dry - Neck Neck exam general surgery: Present: normal inspection, trachea midline - Respiratory Respiratory exam: Present: CTAB. Absent: rales, rhonchi - Cardiovascular Cardiovascular exam: Present: RRR, +S1, +S2 - GI/Abdominal GI/Abdominal exam: Present: soft, no peritoneal signs. Absent: distended, firm, guarding, tenderness - Rectal Rectal exam: Present: deferred - Extremities Exam Extremities exam: Present: warm - Neurological Exam Neurological exam: Present: no focal deficits - Psychiatric Psychiatric exam: Present: normal affect, normal mood - Skin Skin exam: Present: dry, intact, normal color, warm Results - Labs CBC & Chem 7: 09/17/18 04:15 09/17/18 04:15 Labs: Last Result 09/17/18 04:15 Calcium 8.7 Entire Visit 09/17/18 04:15 Hgb 11.1 L Hct 29.9 L - Impressions Impressions Gallbladder Ultrasound 09/17/18 08:00 IMPRESSION: Small amount of sludge in the gallbladder. D/ 09/17/2018 10:52:50 Gadiel Cruz MD / Anne Shay Interpreting Provider: Gadiel Cruz MD Consult Discharge Plan - Plan Referrals: Juliocesar Rodriguez DO [Primary Care Provider] - (Appointment has been requested. ) <Tomasz Jasso - Last Filed: 09/24/18 05:49> Date of Encounter: 09/17/18 - Time Spent With Patient Total time spent is greater than 50% in coordination of care (as documented) at patient's floor/unit and/or counseling patient: GI History of Present Illness - Data of Consult Requesting Physician: Fredrick Calderón DO - Consult Narrative History of present illness: Mr. Calderón is a 23 year old male - Constitutional Vitals: Temp Pulse Resp BP Pulse Ox 97.7 F 69 18 91/57 97 09/24/18 05:15 09/24/18 03:37 09/24/18 03:37 09/24/18 03:37 09/24/18 03:37 Results - Labs CBC & Chem 7: 09/23/18 05:57 09/23/18 05:57 - Attending Attestation I have personally performed a face to face evaluation on this patient. I have reviewed and agree with the care plan. History and Exam by me shows:
[2018-09-17] MEDS: Potassium Effervescent 25 MEQ TABLET.EFF PO SCH ×2 (15:53→19:57)
[2018-09-17] MEDS: 0.9 % Sodium Chloride w KCl 40 MEQ/1,000 ML MLS IVC SCH (15:55)
--- NOTE | 2018-09-17 17:08 | Electrocardiograph Report ---
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
[2018-09-17] MEDS: *HR* Heparin 5,000 UNIT/ML VIAL SQ SCH (18:06)
[2018-09-17] MEDS: Pantoprazole 40 MG VIAL IVP SCH (18:06)
--- NOTE | 2018-09-17 18:08 | Nephrology Progress Note ---
Date of Encounter: 09/17/18 Objective - Vital Signs Vital signs: Vital Signs Temp Pulse Resp BP Pulse Ox 09/17/18 15:56 75 16 107/73 91 09/17/18 13:04 99.1 F 50 18 110/66 100 09/17/18 07:48 97.9 F 78 17 101/61 100 09/17/18 04:12 97.6 F 77 16 105/63 99 09/17/18 00:00 97.8 F 77 18 98/63 98 09/16/18 20:13 98.5 F 80 17 98/65 100 Intake and Output 09/17/18 09/17/18 09/17/18 07:59 15:59 23:59 Intake Total 624 / 624 Balance 624 / 624 Intake: IV Fluids 624 / 624 Magnesium Sulfate 1 GM In 0.9 % 102 / 102 Sodium Chloride 100 ML @ 100 mls/hr IVPB ONCE ONE Rx#: [id number] KCl 40 MEQ Xylocaine 2 ML In 522 / 522 Dextrose 5% 500 ML @ 130.5 mls/ hr IVPB ONCE ONE Rx#:[id number] Other: Weight 51.6 kg Blood Glucose* 93 Patient Weight 09/17/18 23:59 Weight 51.6 kg - Lab 09/17/18 04:15 09/17/18 16:12 Consult Discharge Plan - Plan Referrals: Juliocesar Rodriguez DO [Primary Care Provider] - (Appointment has been r equested. )
[2018-09-18] MEDS: Lidocaine Viscous Oral Soln 15 ML SOLUTION MM PRN (00:03)
[2018-09-18] MEDS: *HR* Heparin 5,000 UNIT/ML VIAL SQ SCH ×2 (05:34→17:02)
[2018-09-18] MEDS: Pantoprazole 40 MG VIAL IVP SCH ×2 (05:34→16:59)
[2018-09-18 07:46] LABS: Basophils % 0.5 %; Eosinophils # 0.1 K/mcL (0.0-0.6); Eosinophils % 1.5 %; Hematocrit 30.6 % (37.5-50.1); Hemoglobin 11.1 g/dL (12.9-16.9); Immature Granulocytes % 0.5 % (0-4); Lymphocytes # 1.2 K/mcL (0.6-4.6); Lymphocytes % 29.4 %; Mean Corpuscular HGB Conc 36.3 g/dL (31.6-35.5); Mean Corpuscular Hemoglobin 31.8 pg (28.0-33.3); Mean Corpuscular Volume 87.7 fL (83.0-100.0); Mean Platelet Volume 9.8 fL (9.4-12.4); Monocytes # 0.4 K/mcL (0.0-1.3); Monocytes % 8.5 %; Neutrophils # 2.5 K/mcL (1.6-8.9); Platelet Count 128 K/mcL (140-400); Red Blood Count 3.49 M/mcL (4.19-5.50); Red Cell Distribution Width 12.9 % (11.5-14.5); Segmented Neutrophils % 59.6 %
[2018-09-18] MEDS: 0.9 % Sodium Chloride w KCl 40 MEQ/1,000 ML MLS IVC SCH (08:25)
[2018-09-18 08:39] LABS: Folate 6.5 ng/mL (3.0-16.0)
[2018-09-18 09:50] LABS: % Iron Saturation 28 % (20-55); BUN/Creatinine Ratio 22 (6-26); Blood Urea Nitrogen 14 mg/dL (6-20); Carbon Dioxide 26 mEq/L (23-29); Chloride 108 mEq/L (98-107); Ferritin 192 ng/mL (20-250); Glucose 98 mg/dL (70-105); Iron 70 mcg/dL (65-175); Osmolality,Calculated 284 (280-300); Potassium 4.4 mEq/L (3.5-5.1); Sodium 137 mEq/L (136-145); Transferrin 177 mg/dL (203-362); eGFR For Non-African Americans > 60 (> 60)
--- NOTE | 2018-09-18 11:01 | Electrocardiograph Report ---
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
[2018-09-18] MEDS: 0.9 % Sodium Chloride 1,000 ML IVC SCH ×2 (12:18→23:06)
--- NOTE | 2018-09-18 12:36 | Consult Note ---
Date of Encounter: 09/18/18 Time of Encounter: 12:31 Assessment & Recommendation (1) Generalized anxiety disorder Current visit: Yes Status: Acute Assessment & Recommendation: Suspect part of client's presentation is related to anxiety issues. Home life seems stressful and he likely gets some primary and secondary gains from being in the hospital. Would benefit most from therapy. Recommend a public health social worker consult to link him with an outpatient provider. Most anxiety disorders are treated with SSRIs which may make his nausea worse so would avoid that drug class for the time being. Can try some prn Vistaril instead to see if it helps him relax. Can use 50mg every 6hr as needed. Doubt issues will resolve quickly but feel free to call if we can be of further assistance. History of Present Illness Requesting Physician: Emeka Okeefe MD Reason for consult: vomiting/anxiety History of present illness: Mr. Calderón is a 23 year old male who presented to the hospital with nausea, vomiting, and chest pain. No real mental health history but there is concern that his physical symptoms are related to underlying anxiety. On eval today client is denying anxiety. States when he was a teenager he had depressive symptoms and talked to a "health clinic" but that he later came to the conclusion that he was feeling normal sadness. Denies any ongoing depression. Denies SI, intent or plan. Nor currently under the care of any mental health professional. Mother present in the room and states client's physical symptoms have been going on for over a year. Medical work-up has been extensive and essentially normal. Mother states the family has experienced stress in the past year. She states client has lost relatives he was close to and that the family has filed for bankruptcy. She reports client does not work and that he mostly stays at home with her and her . Client denies believing these things are the source of his GI issues but willing to follow up with any recommendations. CC: Emeka Okeefe MD Past Med Surg Social Fam HX - Past Medical History Medical history: GERD - Past Psychiatric History Psychiatric history: Reports: no psych history Family psychiatric history: No Family History of Suicide: None - Past Surgical History Surgical History: appendectomy - Social History Smoking Status: Never smoker Smokeless Tobacco Status: No Alcohol use: none, occasionally Drug use: none - Family History Paternal Grandfather Hx Family Cardiac Disorders: Yes ([place]) Hx Family Endocrine Disorder: Yes (Diabetes) Paternal Grandmother Hx Family Cancer: Yes (colon) Hx Family Endocrine Disorder: Yes (diabetes) Father Hx Family Cardiac Disorders: Yes Medications & Allergies Hydrocortisone [Proctosol-Hc] 1 appl RC BID PRN 09/16/18 [History] Hydrocortisone/Pramoxine [Analpram Hc 2.5%-1% Lotion] 1 appl RC TID PRN 09/16/18 [History] Pantoprazole Sodium 40 mg PO DAILY 09/16/18 [History] dimenhyDRINATE [Dramamine] 50 mg PO DAILY PRN 09/16/18 [History] Allergy/AdvReac Type Severity Reaction Status Date / Time No Known Allergies Allergy Verified 02/08/18 13:03 Review of Systems Constitutional: Denies: fever, chills, weakness, weight change Eyes: Denies: eye pain, vision change Ears, Nose, Throat: Denies: ear pain, throat pain, dental pain, hearing loss, co ngestion Cardiovascular: Reports: chest pain Respiratory: Denies: cough, dyspnea, wheezes Gastrointestinal: Reports: abdominal pain, nausea, vomiting Genitourinary male: Denies: urgency, dysuria, frequency, genital lesions Musculoskeletal: Denies: joint swelling, joint pain Integumentary: Denies: rash, lesions, pruritus Neurological: Denies: headache, weakness, numbness, memory loss Endocrine: Denies: fatigue, heat or cold intolerance Hematologic/Lymphatic: Denies: easy bruising, lymphadenopathy Allergic/Immunologic: Denies: urticaria, itchy eyes Psychiatry Exam - Constitutional Vitals: Temp Pulse Resp BP Pulse Ox 98.6 F 67 16 107/64 97 09/18/18 07:24 09/18/18 07:24 09/18/18 07:24 09/18/18 07:24 09/18/18 07:24 General appearance: thin - Musculoskeletal Gait: normal Station: relaxed Strength & Tone: normal for patient - Psychiatric Patient Orientation: Yes Person, Yes Time, Yes Place Level of alertness: Alert Behavior: calm, cooperative Psychomotor activity: Normal Eye Contact: Maintains Eye Contact Mood Description: Irritable Affect description: congruent with mood Speech Volume: Normal Speech pattern: normal rate, normal rhythm, normal tone, fluent, spontaneous Language & Vocabulary: consistent with education Thought Process: Linear, Goal Oriented Thought Content: No Suicidal ideation, No Homicidal ideation, No Overt delusions Perceptual Disturbances: No Auditory hallucinations, No Visual hallucinations Attention Span Ability: Capable of Focused Attention Memory Description: Grossly Intact Patient Reliability: Reliable Historian Fund of knowledge: Yes abstraction ability, Yes aware of current events Intelligence Estimate: Average Judgment: Fair Insight: Partial Results - Labs Labs: Laboratory Last Values WBC 4.1 K/mcL (4.3-11.1) L 09/18/18 07:18 RBC 3.49 M/mcL (4.19-5.50) L 09/18/18 07:18 Hgb 11.1 g/dL (12.9-16.9) L 09/18/18 07:18 Hct 30.6 % (37.5-50.1) L 09/18/18 07:18 MCV 87.7 fL (83.0-100.0) 09/18/18 07:18 MCH 31.8 pg (28.0-33.3) 09/18/18 07:18 MCHC 36.3 g/dL (31.6-35.5) H 09/18/18 07:18 RDW 12.9 % (11.5-14.5) 09/18/18 07:18 Plt Count 128 K/mcL (140-400) L 09/18/18 07:18 MPV 9.8 fL (9.4-12.4) 09/18/18 07:18 Immature Gran % 0.5 % (0-4) 09/18/18 07:18 Seg Neutrophils % 59.6 % 09/18/18 07:18 29.4 % 09/18/18 07:18 8.5 % 09/18/18 07:18 1.5 % 09/18/18 07:18 0.5 % 09/18/18 07:18 2.5 K/mcL (1.6-8.9) 09/18/18 07:18 1.2 K/mcL (0.6-4.6) 09/18/18 07:18 0.4 K/mcL (0.0-1.3) 09/18/18 07:18 0.1 K/mcL (0.0-0.6) 09/18/18 07:18 0.0 K/mcL (0.0-0.2) 09/18/18 07:18 Immature Plt Fraction 3.3 % (1.1-6.1) 09/17/18 04:15 Sodium 137 mEq/L (136-145) 09/18/18 07:18 Potassium 4.4 mEq/L (3.5-5.1) D 09/18/18 07:18 Chloride 108 mEq/L (98-107) H 09/18/18 07:18 Carbon Dioxide 26 mEq/L (23-29) 09/18/18 07:18 BUN 14 mg/dL (6-20) 09/18/18 07:18 0.65 mg/dL (0.70-1.30) L 09/18/18 07:18 Est GFR ( Amer) > 60 (> 60) 09/18/18 07:18 Est GFR (Non-Af Amer) > 60 (> 60) 09/18/18 07:18 22 (6-26) 09/18/18 07:18 Glucose 98 mg/dL (70-105) 09/18/18 07:18 POC Glucose 93 mg/dL (70-99) 09/17/18 12:26 279 mOsm/kg (280-300) L 09/16/18 23:12 284 (280-300) 09/18/18 07:18 Lactic Acid 0.5 mmol/L (0.5-2.2) 09/16/18 03:16 Calcium 8.0 mg/dL (8.6-10.3) L 09/18/18 07:18 Venous Ioniz Calcium 1.12 mmol/L (1.15-1.35) L 09/17/18 04:48 Magnesium 2.1 mg/dL (1.6-2.6) 09/17/18 04:15 Iron 70 mcg/dL (65-175) 09/18/18 07:18 % Saturation 28 % (20-55) 09/18/18 07:18 177 mg/dL (203-362) L 09/18/18 07:18 192 ng/mL (20-250) 09/18/18 07:18 1.9 mg/dL (0.3-1.0) H 09/16/18 06:31 2.0 mg/dL (0.3-1.0) H 09/16/18 06:31 0.2 mg/dL (0.0-0.2) 09/16/18 06:31 1.7 mg/dL (0.0-1.2) H 09/16/18 06:31 AST 21 Units/L (13-39) 09/16/18 06:31 AST 22 Units/L (13-39) 09/16/18 06:31 ALT 10 Units/L (7-52) 09/16/18 06:31 ALT 10 Units/L (7-52) 09/16/18 06:31 61 Units/L (34-104) 09/16/18 06:31 62 Units/L (34-104) 09/16/18 06:31 < 0.03 ng/mL (< 0.04) 09/16/18 14:59 6.8 g/dL (6.4-8.9) 09/16/18 06:31 7.0 g/dL (6.4-8.9) 09/16/18 06:31 4.1 g/dL (3.5-5.7) 09/16/18 06:31 4.1 g/dL (3.5-5.7) 09/16/18 06:31 2.7 g/dL (2.4-3.5) 09/16/18 06:31 2.9 g/dL (2.4-3.5) 09/16/18 06:31 1.4 (1.1-2.2) 09/16/18 06:31 1.5 (1.1-2.2) 09/16/18 06:31 18 Units/L (11-82) 09/15/18 23:49 Vitamin B12 342 pg/mL (250-1100) 09/18/18 07:18 6.5 ng/mL (3.0-16.0) 09/18/18 07:18 Negative ng/mL (Ylbvyd=204) 09/15/18 23:58 Ur Barbiturates Screen Negative ng/mL (Edculx=107) 09/15/18 23:58 Ur Phencyclidine Scrn Negative ng/mL (Cutoff=25) 09/15/18 23:58 Ur Amphetamines Screen Negative ng/mL (Ggceej=3637) 09/15/18 23:58 U Benzodiazepines Scrn Negative ng/mL (Nlvftt=672) 09/15/18 23:58 Negative ng/mL (Cutoff= 300) 09/15/18 23:58 U Marijuana (THC) Screen Positive ng/mL (Cutoff = 50) H 09/15/18 23:58 Ur Drug Screen Interp See Below 09/15/18 23:58 Hepatitis A IgM Ab Nonreactive (Nonreactive) 09/15/18 23:49 Hep Bs Antigen Nonreactive (Nonreactive) 09/15/18 23:49 Hep B Core IgM Ab Nonreactive (Nonreactive) 09/15/18 23:49 Hepatitis C Ab Screen Nonreactive (Nonreactive) 09/15/18 23:49 Consult Discharge Plan - Plan Referrals: Juliocesar Rodriguez DO [Primary Care Provider] - (Appointment has been requested. )
[2018-09-18] MEDS: Sucralfate 1 GM TABLET PO SCH ×3 (14:01→21:53)
--- NOTE | 2018-09-18 14:24 | Internal Med Progress Note ---
<Saul Boo - Last Filed: 09/18/18 14:58> Hospitalist Progress Note - Encounter Date of Encounter: 09/18/18 Time of Encounter: 13:15 - Subjective Interval History: The patient is sitting anxiously in bed at time of examination. He states that he is having chest pain which is associated with eating and it feels like burni ng sensation. It is primarily located in his epigastric area, and he has very agitated as he tells me about it. His grandmother is at bedside and she seems very frustrated as well, and states that she is tired of people displaying experiments on him because she feels like nogoing on. The patient does admit that he does feel very anxious today however he feels that this is due to his pain that he is experiencing. He did try to eat earlier and was able to ingest eggs as well as parts of a muffin however he apparently did vomit afterwards. - Exam Vitals: Temp Pulse Resp BP Pulse Ox 98.6 F 67 16 107/64 97 09/18/18 07:24 09/18/18 07:24 09/18/18 07:24 09/18/18 07:24 09/18/18 07:24 Exam: General: Alert and oriented. Appears malnourished. Skin:Pale, no rash, no lesions. HEENT:Pupils equal, round and reactive. Cardiovascular:Normal S1 & S2, no rubs, murmurs or gallops. No JVD. Pulse regular. Lungs:Normal breath sounds, no wheezes or crackles. Abdomen:Soft, tender to palpation throughout, no rigidity, no palpable mass. Extremities:No deformity, no edema or tenderness, no joint swelling or clubbing. Neurological:Normal cognition and motor skills. Pulses:Carotid and radial pulses normal +2. Rest of the physical exam is non contributory. - Assessment and Plan (1) Hypokalemia Current Visit: Yes Status: Acute Assessment and Plan: Resolved, continue to monitor (2) Prolonged QT interval Current Visit: Yes Status: Acute Assessment and Plan: Repeat EKG in the morning now that electron abnormalities have resolved (3) Hypocalcemia Current Visit: Yes Status: Acute Assessment and Plan: Likely secondary to poor intake and vomiting. Replacement ordered in ER, however he has continued to have low calcium I will give IV calcium today, recheck tomorrow Repeat labs ordered. (4) Abdominal pain Current Visit: Yes Status: Acute Assessment and Plan: Epigastric abdominal pain, resembles GERD Patient did have gastritis on EGD yesterday I will start the patient on 4 times a day Carafate Protonix ordered. NPO. Pain control with PRN pain medications. (5) Chest pain Current Visit: Yes Status: Chronic Assessment and Plan: Likely secondary to nausea/vomiting + gastritis + anxiety (6) Nausea & vomiting Current Visit: Yes Status: Chronic Assessment and Plan: Likely secondary to anxiety and psychiatric etiology Psych consult today recommended treatment of anxiety with both counseling and potential medication Specifically, psychiatrist recommended Vistaril 50 mg every 6 hours when necessary We will start this medication and also recommend counseling - Time Spent with Patient Total time spent is greater than 50% in coordination of care (as documented) at patient's floor/unit and/or counseling patient: Internal Medicine: Result - Labs CBC & Chem 7: 09/18/18 07:18 09/18/18 07:18 Labs: Short CBC 09/18/18 Range/Units 07:18 WBC 4.1 L (4.3-11.1) K/mcL Hgb 11.1 L (12.9-16.9) g/dL Hct 30.6 L (37.5-50.1) % Plt Count 128 L (140-400) K/mcL Neutrophils # 2.5 (1.6-8.9) K/mcL BMP 09/17/18 09/18/18 16:12 07:18 Sodium 137 Potassium 2.9 L 4.4 D Chloride 108 H Carbon Dioxide 26 BUN 14 Creatinine 0.65 L Glucose 98 Calcium 8.0 L Consult Discharge Plan - Plan Referrals: Juliocesar Rodriguez DO [Primary Care Provider] - (Appointment has been requested. ) <Emeka Okeefe - Last Filed: 09/18/18 16:29> Hospitalist Progress Note - Encounter Date of Encounter: 09/18/18 Time of Encounter: 16:25 - Exam Vitals: Temp Pulse Resp BP Pulse Ox 98.6 F 67 16 107/64 97 09/18/18 07:24 09/18/18 07:24 09/18/18 07:24 09/18/18 07:24 09/18/18 07:24 - Assessment and Plan (1) Prolonged QT interval Current Visit: Yes Status: Acute (2) Hypocalcemia Current Visit: Yes Status: Acute (3) Hypokalemia Current Visit: Yes Status: Acute (4) Abdominal pain Current Visit: Yes Status: Acute (5) Chest pain Current Visit: Yes Status: Chronic (6) Nausea & vomiting Current Visit: Yes Status: Chronic - Time Spent with Patient Total time spent is greater than 50% in coordination of care (as documented) at patient's floor/unit and/or counseling patient: Internal Medicine: Result - Labs CBC & Chem 7: 09/18/18 07:18 09/18/18 07:18 Labs: Short CBC 09/18/18 Range/Units 07:18 WBC 4.1 L (4.3-11.1) K/mcL Hgb 11.1 L (12.9-16.9) g/dL Hct 30.6 L (37.5-50.1) % Plt Count 128 L (140-400) K/mcL Neutrophils # 2.5 (1.6-8.9) K/mcL BMP 09/17/18 09/18/18 16:12 07:18 Sodium 137 Potassium 2.9 L 4.4 D Chloride 108 H Carbon Dioxide 26 BUN 14 Creatinine 0.65 L Glucose 98 Calcium 8.0 L - Attending Attestation I saw evaluated and examined this patient and my medical decision-making was reviewed with the Resident Physician, Saul Boo. I agree with the documented findings, disposition and treatment plan as described except to any changes set forth below. We independently had [id number] contact with the patient. Evaluated patient is afternoon. Complains of chest pains with any food intake. Continues to have emesis. Denies nausea. Reports that pain is severe and feels like burning and begin soon after he eats anything. General: Patient is alert, mild distress, oriented x 3, underweight ENT: Mucous membranes dry Respiratory: Good respiratory effort. Normal breath sounds. No wheezing or crackles. Cardiovascular: Regular rate and rhythm. s1 and s2 normal No clicks, rubs, gallops, or murmurs. No pedal edema Abdomen: Abdomen is soft, nontender. Bowel sounds are present Musculoskeletal: Spontaneously moving all extremities Skin: warm, dry, intact. Neuro: Alert oriented x 3 normal cranial nerves, no focal deficits Abdominal pain: Patient underwent upper GI endoscopy yesterday which showed gastritis. No other esophageal abnormality. Did explain patient's dysphagia. Recommended mechanical soft diet and to continue current medications. Chest pain: Given association with food, most likely due to gastritis and possible reflux disease. Place patient on PPI and Carafate. Also place patient on Reglan due to history of gastroparesis. Intractable nausea and vomiting: Patient is still not tolerating diet. If with aggressive management of gastroparesis, gastritis, patient continues to have nausea and vomiting and unable to tolerate oral diet, he may need feeding tube. Discussed this with the patient and family. Hypokalemia: Resolved. Will decrease rate of supplementation. Hyponatremia: Resolved Prolonged QT interval: Improved per EKG. Syncope: Improved. From dehydration and orthostasis. Anemia and thrombocytopenia/bicytopenia: Hemoglobin 11.1. Patient now has slightly low WBC count also. Will continue to monitor. Continue outpatient follow-up with hematology/oncology. <Saul Boo - Last Filed: 09/18/18 14:58> (4) Abdominal pain Qualifiers: Abdominal location: generalized Qualified Code(s): R10.84 - Generalized ab dominal pain (5) Chest pain Qualifiers: Chest pain type: unspecified Qualified Code(s): R07.9 - Chest pain, unspecified (6) Nausea & vomiting Qualifiers: Vomiting Intractability: unspecified Qualified Code(s): R11.2 - Nausea with vomiting, unspecified <Emeka Okeefe - Last Filed: 09/18/18 16:29> (4) Abdominal pain Qualifiers: Abdominal location: generalized Qualified Code(s): R10.84 - Generalized abdominal pain (5) Chest pain Qualifiers: Chest pain type: unspecified Qualified Code(s): R07.9 - Chest pain, unspecified (6) Nausea & vomiting Qualifiers: Vomiting Intractability: unspecified Qualified Code(s): R11.2 - Nausea with vomiting, unspecified
[2018-09-18] MEDS: hydrOXYzine pamoate 25 MG CAPSULE PO PRN (16:59)
[2018-09-18] MEDS: Metoclopramide 10 MG/2 ML VIAL IVP SCH ×2 (17:01→23:05)
[2018-09-18 17:12] LABS: Potassium,Urine 28.3 mEq/L
--- NOTE | 2018-09-18 23:47 | Nephrology Progress Note ---
Date of Encounter: 09/18/18 Time of Encounter: 13:00 - Assessment and Plan (1) Hypokalemia Current Visit: Yes Status: Acute Potassium normalized at 4.4, continue supplements as needed. Elizabeth pang Will signoff, please reconsult prn (2) Generalized anxiety disorder Current Visit: Yes Status: Acute Per psych (3) Chest pain Current Visit: Yes Status: Chronic Cardiology already saw, not cardiac in anture Qualifiers: Chest pain type: unspecified Qualified Code(s): R07.9 - Chest pain, unspecified (4) Nausea & vomiting Current Visit: Yes Status: Chronic Per primary team and GI. Workup negative to date Qualifiers: Vomiting Intractability: unspecified Qualified Code(s): R11.2 - Nausea with vomiting, unspecified Subjective Interval history: Pt seen and examined with mother at bedside still worried that EGD did not show anything significant. And after being told her potassium was now WNL, he began to have "10/10 chest pain" Objective - Vital Signs Vital signs: Vital Signs Temp Pulse Resp BP Pulse Ox 09/18/18 21:11 97.4 F L 83 18 188/70 99 09/18/18 16:33 76 17 104/63 09/18/18 07:24 98.6 F 67 16 107/64 97 09/18/18 05:16 98.1 F 73 12 96/68 99 Intake and Output 09/18/18 09/18/18 09/18/18 07:59 15:59 23:59 Intake Total 120 / 2110 750 / 2110 1240 / 2110 Output Total 1300 / 1300 Balance 120 / 810 750 / 810 -60 / 810 Intake: IV Fluids 0 / 1750 750 / 1750 1000 / 1750 0.9 % Sodium Chloride 1,000 ML 1000 / 1000 @ 100 mls/hr IVC .Q10H [facility] Rx#: [id number] KCl 40mEq in 0.9% Sodium 0 / 750 750 / 750 Chloride 40 meq In 1,000 ml @ 125 mls/hr IVC .Q8H [facility] Rx#: [id number] Oral 120 / 360 240 / 360 Output: Emesis 1300 / 1300 Other: # Voids 1 Weight 52.1 kg Patient Weight 09/18/18 23:59 Weight 52.1 kg - General Appearance General appearance: Present: cachectic, frail EENT: Present: ATNC, mucous membranes moist Neck: Present: no JVD, supple Respiratory: Present: clear Cardiology: Present: no edema, normal S1, normal S2 Gastrointestinal: Present: no tenderness, no guarding Integumentary: Present: warm and dry Neurologic: Present: no focal deficit Musculoskeletal: Present: no deformities Psychiatric: Present: mood/affect appropriate - Lab 09/18/18 07:18 09/18/18 07:18 Most recent lab results 09/18/18 16:35 Urine Creatinine 64 Consult Discharge Plan - Plan Referrals: Juliocesar Rodriguez DO [Primary Care Provider] - (Appointment has been request ed. )
[2018-09-19] MEDS: Metoclopramide 10 MG/2 ML VIAL IVP SCH ×4 (05:01→23:29)
[2018-09-19] MEDS: Pantoprazole 40 MG VIAL IVP SCH ×2 (05:01→18:38)
[2018-09-19] MEDS: *HR* Heparin 5,000 UNIT/ML VIAL SQ SCH ×2 (05:01→18:35)
[2018-09-19 05:57] LABS: Basophils % 0.9 %; Eosinophils # 0.2 K/mcL (0.0-0.6); Eosinophils % 3.5 %; Hematocrit 29.6 % (37.5-50.1); Hemoglobin 10.6 g/dL (12.9-16.9); Immature Granulocytes % 0.2 % (0-4); Lymphocytes # 1.3 K/mcL (0.6-4.6); Lymphocytes % 31.1 %; Mean Corpuscular HGB Conc 35.8 g/dL (31.6-35.5); Mean Corpuscular Hemoglobin 31.6 pg (28.0-33.3); Mean Corpuscular Volume 88.4 fL (83.0-100.0); Monocytes # 0.4 K/mcL (0.0-1.3); Monocytes % 8.6 %; Neutrophils # 2.4 K/mcL (1.6-8.9); Platelet Count 131 K/mcL (140-400); Red Blood Count 3.35 M/mcL (4.19-5.50); Red Cell Distribution Width 12.8 % (11.5-14.5); Segmented Neutrophils % 55.7 %
[2018-09-19 06:15] LABS: BUN/Creatinine Ratio 15 (6-26); Blood Urea Nitrogen 9 mg/dL (6-20); Calcium 8.2 mg/dL (8.6-10.3); Carbon Dioxide 22 mEq/L (23-29); Chloride 108 mEq/L (98-107); Glucose 118 mg/dL (70-105); Osmolality,Calculated 284 (280-300); Potassium 3.5 mEq/L (3.5-5.1); Sodium 137 mEq/L (136-145); eGFR For Non-African Americans > 60 (> 60)
[2018-09-19] MEDS: hydrOXYzine pamoate 25 MG CAPSULE PO PRN (08:08)
[2018-09-19] MEDS: Sucralfate 1 GM TABLET PO SCH ×4 (08:08→21:53)
[2018-09-19] MEDS: 0.9 % Sodium Chloride 1,000 ML IVC SCH (08:09)
[2018-09-19] MEDS: D5% in 0.9% NACL w KCl 20 MEQ/1,000 ML MLS IVC SCH ×2 (12:02→21:55)
--- NOTE | 2018-09-19 13:31 | General Surgery Consult Note ---
Date of Encounter: 09/20/18 Time of Encounter: 13:28 Assessment and Plan (1) Severe malnutrition Current Visit: Yes Status: Acute I informed the patient will be involved with placement of a J-tube versus placement of a gastrostomy tube. Since he is having problems with nausea vomiting once he has eating and swallow food I do think that a J-tube would be more appropriate. The patient however is unaware of the care and what would be involved with maintaining the J-tube and the fact that when having the J-tube placed it would have to be continuous tube feeds i.e. attached to a pump 24 hours a day. There is a possibility of being able to change the tube feeds to a 12-14 hour feed if he tolerates the volume. His mother is not present at this time and the grandparents states that there may be some concerns about overall cost of the tube feeds. I also explained that placement of the Jtube will not solve his nausea and vomiting problem. The purpose of the feeding tube will be to help supplement his nutrition. I suggested that they meet with social work and with the hardware press operator to discuss the after to placement care and what would be involved with maintaining the appropriate amount of feeds postprocedure. The patient also states he would like to think about it and we will revisit this with him tomorrow. History of Present Illness Consult date: 09/19/18 Requesting physician: Saul Boo History of present illness: The patient is a 23-year-old male with a past medical history significant for ADHD and gastroparesis has been having symptoms of upper abdominal pain and nausea vomiting. He states that he has been having symptoms for the past several days and started to have some dizziness sensation. He also having issues with constipation. He states that whenever he tries to eat he feels a tightening in his throat and he also has the upper abdominal discomfort and some vomiting. He says that he vomits multiple times a day and has been evaluated by gastroenterology has had procedures performed including EGDs studies as well as CT scans of the abdomen and pelvis. The patient states that this morning he did attempt to the eat breakfast but then subsequently vomited. He says currently is not having any abdominal pain. He does made to a history of anxiety which was felt to possibly be related to his above-mentioned symptoms. He is been evaluated by nutrition who has documented severe protein calorie malnutrition and because of his inability to maintain his weight and episodes of nausea vomiting evidence of adequate patient for the possibility of placing a feeding tube. Past Med Surg Social Fam HX - Past Medical History Medical history: GERD Psychiatric history: no psych history - Past Surgical History Surgical History: appendectomy - Social History Smoking Status: Never smoker Smokeless Tobacco Status: No Alcohol use: none, occasionally Drug use: none - Family History Paternal Grandfather Hx Family Cardiac Disorders: Yes (MD) Hx Family Endocrine Disorder: Yes (Diabetes) Paternal Grandmother Hx Family Cancer: Yes (colon) Hx Family Endocrine Disorder: Yes (diabetes) Father Hx Family Cardiac Disorders: Yes Medications and Allergies Hydrocortisone [Proctosol-Hc] 1 appl RC BID PRN 09/16/18 [History] Hydrocortisone/Pramoxine [Analpram Hc 2.5%-1% Lotion] 1 appl RC TID PRN 09/16/18 [History] Pantoprazole Sodium 40 mg PO DAILY 09/16/18 [History] dimenhyDRINATE [Dramamine] 50 mg PO DAILY PRN 09/16/18 [History] Allergy/AdvReac Type Severity Reaction Status Date / Time No Known Allergies Allergy Verified 02/08/18 13:03 Review of Systems All systems PM: reviewed and no additional remarkable complaints except as stated All systems PM: The remainder of the systems were reviewed and are negative General Surgery Exam Initial Vital Signs Temp Pulse Resp BP Pulse Ox 97.6 F 106 18 96/69 99 09/15/18 22:42 09/15/18 22:42 09/15/18 22:42 09/15/18 22:42 09/15/18 22:42 - Eyes PERRL, normal ocular movement - Respiratory normal expansion, normal respiratory effort - Cardiovascular Cardiovascular exam: Present: RRR, no murmurs/rubs/gallops - Abdomen Abdomen general surgery: Present: bowel sounds present, soft, tender (Tenderness to palpation in the left lower quadrant. No palpable masses noted) - Neurologic Present: CN 2-12 grossly intact - Musculoskeletal Present: other (No clubbing cyanosis or edema) - Psychiatric Psychiatric general surgery: Present: A&Ox3, oriented to person, oriented to place, oriented to time Exam Initial Vital Signs Temp Pulse Resp BP Pulse Ox 97.6 F 106 18 96/69 99 09/15/18 22:42 09/15/18 22:42 09/15/18 22:42 09/15/18 22:42 09/15/18 22:42 Results - Labs 09/20/18 04:32 09/20/18 04:32 Abnormal lab results WBC 4.1 K/mcL (4.3-11.1) L 09/18/18 07:18 RBC 3.35 M/mcL (4.19-5.50) L 09/19/18 04:43 Hgb 10.6 g/dL (12.9-16.9) L 09/19/18 04:43 Hct 29.6 % (37.5-50.1) L 09/19/18 04:43 MCHC 35.8 g/dL (31.6-35.5) H 09/19/18 04:43 Plt Count 131 K/mcL (140-400) L 09/19/18 04:43 Sodium 135 mEq/L (136-145) L 09/17/18 04:15 Potassium 2.9 mEq/L (3.5-5.1) L 09/17/18 16:12 Chloride 108 mEq/L (98-107) H 09/19/18 04:43 Carbon Dioxide 22 mEq/L (23-29) L 09/19/18 04:43 BUN 27 mg/dL (6-20) H 09/16/18 06:31 0.62 mg/dL (0.70-1.30) L 09/19/18 04:43 28 (6-26) H 09/16/18 06:31 Glucose 118 mg/dL (70-105) H 09/19/18 04:43 279 mOsm/kg (280-300) L 09/16/18 23:12 276 (280-300) L 09/16/18 06:31 Calcium 8.2 mg/dL (8.6-10.3) L 09/19/18 04:43 Venous Ioniz Calcium 1.12 mmol/L (1.15-1.35) L 09/17/18 04:48 177 mg/dL (203-362) L 09/18/18 07:18 1.9 mg/dL (0.3-1.0) H 09/16/18 06:31 2.0 mg/dL (0.3-1.0) H 09/16/18 06:31 0.4 mg/dL (0.0-0.2) H 09/15/18 23:49 1.7 mg/dL (0.0-1.2) H 09/16/18 06:31 9.2 g/dL (6.4-8.9) H 09/15/18 23:49 4.1 g/dL (2.4-3.5) H 09/15/18 23:49 U Marijuana (THC) Screen Positive ng/mL (Cutoff = 50) H 09/15/18 23:58 Diabetes panel 09/19/18 Range/Units 04:43 Sodium 137 (136-145) mEq/L Potassium 3.5 (3.5-5.1) mEq/L Chloride 108 H (98-107) mEq/L Carbon Dioxide 22 L (23-29) mEq/L BUN 9 (6-20) mg/dL Creatinine 0.62 L (0.70-1.30) mg/dL Glucose 118 H (70-105) mg/dL Calcium 8.2 L (8.6-10.3) mg/dL Calcium panel 09/19/18 09/19/18 Range/Units 04:43 04:43 Calcium 8.2 L (8.6-10.3) mg/dL Phosphorus 2.8 (2.7-4.5) mg/dL Pituitary panel 09/19/18 Range/Units 04:43 Sodium 137 (136-145) mEq/L Potassium 3.5 (3.5-5.1) mEq/L Chloride 108 H (98-107) mEq/L Carbon Dioxide 22 L (23-29) mEq/L BUN 9 (6-20) mg/dL Creatinine 0.62 L (0.70-1.30) mg/dL Glucose 118 H (70-105) mg/dL Calcium 8.2 L (8.6-10.3) mg/dL Adrenal panel 09/19/18 Range/Units 04:43 Sodium 137 (136-145) mEq/L Potassium 3.5 (3.5-5.1) mEq/L Chloride 108 H (98-107) mEq/L Carbon Dioxide 22 L (23-29) mEq/L BUN 9 (6-20) mg/dL Creatinine 0.62 L (0.70-1.30) mg/dL Glucose 118 H (70-105) mg/dL Calcium 8.2 L (8.6-10.3) mg/dL All other labs normal. Consult Discharge Plan - Plan Referrals: Juliocesar Rodriguez DO [Primary Care Provider] - (Appointment has been requested. )
--- NOTE | 2018-09-19 14:29 | Internal Med Progress Note ---
<Saul Boo - Last Filed: 09/19/18 15:27> Hospitalist Progress Note - Encounter Date of Encounter: 09/19/18 Time of Encounter: 09:45 - Subjective Interval History: The patient is resting in bed at time of examination. He says that the Carafate did seem to help in his abdominal pain/chest pain did seem to improve signific antly after starting it. He does not feel like his anxiety has been well controlled with Vistaril however he will continue to try it. He feels like his throat is closing up sometimes and he feels like he gets panicky as result of it. He had no other acute events overnight. He continues to have nausea and vomiting and does not feel he can keep his food down. - Exam Vitals: Temp Pulse Resp BP Pulse Ox 98.0 F 75 16 117/65 98 09/19/18 11:57 09/19/18 11:57 09/19/18 11:57 09/19/18 11:57 09/19/18 04:58 Exam: General: Alert and oriented. Appears malnourished. Skin:Pale, no rash, no lesions. HEENT:Pupils equal, round and reactive. Cardiovascular:Normal S1 & S2, no rubs, murmurs or gallops. No JVD. Pulse regular. Lungs:Normal breath sounds, no wheezes or crackles. Abdomen:Soft, tender to palpation throughout, no rigidity, no palpable mass. Extremities:No deformity, no edema or tenderness, no joint swelling or clubbing. Neurological:Normal cognition and motor skills. Pulses:Carotid and radial pulses normal +2. Rest of the physical exam is non contributory. - Assessment and Plan (1) Nausea & vomiting Current Visit: Yes Status: Chronic Assessment and Plan: Likely secondary to anxiety and psychiatric etiology Psych consult recommended treatment of anxiety with both counseling and potential medication Specifically, psychiatrist recommended Vistaril 50 mg every 6 hours when n ecessary We will start this medication and also recommend counseling The patient is having substantial weight loss and is unable to maintain nutrition we will consult surgery for J-tube placement (2) Hypokalemia Current Visit: Yes Status: Acute Assessment and Plan: Although the patient is not currently hypokalemic at 3.5, it is a significant drop from 4.4 yesterday I will add 20 mEq potassium to his maintenance fluid (3) Prolonged QT interval Current Visit: Yes Status: Acute Assessment and Plan: Repeat EKG in the morning now that electron abnormalities have resolved (4) Hypocalcemia Current Visit: Yes Status: Acute Assessment and Plan: Repleted with IV calcium yesterday Repeat labs ordered. (5) Abdominal pain Current Visit: Yes Status: Acute Assessment and Plan: Epigastric abdominal pain, resembles GERD Patient did have gastritis on EGD Started the patient on 4 times a day Carafate which she feels has been helpful Protonix ordered. NPO. Pain control with PRN pain medications. (6) Chest pain Current Visit: Yes Status: Chronic Assessment and Plan: Likely secondary to nausea/vomiting + gastritis + anxiety Patient was started on Vistaril and Carafate (7) Severe malnutrition Current Visit: Yes Status: Acute Assessment and Plan: Severe protein calorie malnutrition Patient is unable to maintain nutrition status due to nausea and vomiting Although anxiety may play a large role in this, the patient is unable to hold food down at this time Next appropriate step at this time is consulted surgery for J-tube placement I spoke with the patient and grandmother this morning and he is receptive to discussing this with surgery - Time Spent with Patient Total time spent is greater than 50% in coordination of care (as documented) at patient's floor/unit and/or counseling patient: Internal Medicine: Result - Labs CBC & Chem 7: 09/19/18 04:43 09/19/18 04:43 Labs: Short CBC 09/19/18 Range/Units 04:43 WBC 4.3 (4.3-11.1) K/mcL Hgb 10.6 L (12.9-16.9) g/dL Hct 29.6 L (37.5-50.1) % Plt Count 131 L (140-400) K/mcL Neutrophils # 2.4 (1.6-8.9) K/mcL BMP 09/19/18 04:43 Sodium 137 Potassium 3.5 Chloride 108 H Carbon Dioxide 22 L BUN 9 Creatinine 0.62 L Glucose 118 H Calcium 8.2 L Consult Discharge Plan - Plan Referrals: Juliocesar Rodriguez DO [Primary Care Provider] - (Appointment has been requested. ) <Fredrick Calderón - Last Filed: 09/19/18 16:25> Hospitalist Progress Note - Encounter Date of Encounter: 09/19/18 - Exam Vitals: Temp Pulse Resp BP Pulse Ox 98.7 F 77 16 112/76 98 09/19/18 14:39 09/19/18 14:39 09/19/18 14:39 09/19/18 14:39 09/19/18 04:58 - Assessment and Plan (1) Nausea & vomiting Current Visit: Yes Status: Chronic (2) Prolonged QT interval Current Visit: Yes Status: Acute (3) Hypocalcemia Current Visit: Yes Status: Acute (4) Hypokalemia Current Visit: Yes Status: Acute (5) Abdominal pain Current Visit: Yes Status: Acute (6) Chest pain Current Visit: Yes Status: Chronic (7) Severe malnutrition Current Visit: Yes Status: Acute - Time Spent with Patient Total time spent is greater than 50% in coordination of care (as documented) at patient's floor/unit and/or counseling patient: Internal Medicine: Result - Labs CBC & Chem 7: 09/19/18 04:43 09/19/18 04:43 Labs: Short CBC 09/19/18 Range/Units 04:43 WBC 4.3 (4.3-11.1) K/mcL Hgb 10.6 L (12.9-16.9) g/dL Hct 29.6 L (37.5-50.1) % Plt Count 131 L (140-400) K/mcL Neutrophils # 2.4 (1.6-8.9) K/mcL BMP 09/19/18 04:43 Sodium 137 Potassium 3.5 Chloride 108 H Carbon Dioxide 22 L BUN 9 Creatinine 0.62 L Glucose 118 H Calcium 8.2 L - Attending Attestation I examined this patient and my medical decision-making was reviewed with the Resident Physician on 09/19/18. I agree with the documented findings, disposition and treatment plan as described except to the extent set forth below. Mr Calderón is currently admitted for acute intractable vomiting. He remains moderate to high risk due to potential for worsening clinical status. Mr Calderón continues to have vomiting after eating. His mother questioned whether he may be doing this to himself. Carafate helpful for some symptoms. No fever or chills. Chart notes copious stool as well. Exam Alert Comfortable Mucus membranes dry No adenopathy Heart not tachy No wheeze Abd soft No edema I/P 1. Intractable vomiting - ? if intentional versus other. Anxiety component. Electrolytes an issue as well as nutrition. Will ask surgery to discuss J tube. 2. Hypokalemia - improving 3. Hypocalcemia 4. Malnutrition Further diagnoses and plan as above. __ <Saul Boo - Last Filed: 09/19/18 15:27> (1) Nausea & vomiting Qualifiers: Vomiting Intractability: unspecified Qualified Code(s): R11.2 - Nausea with vomiting, unspecified (5) Abdominal pain Qualifiers: Abdominal location: generalized Qualified Code(s): R10.84 - Generalized abdominal pain (6) Chest pain Qualifiers: Chest pain type: unspecified Qualified Code(s): R07.9 - Chest pain, unspe cified <Fredrick Calderón - Last Filed: 09/19/18 16:25> (1) Nausea & vomiting Qualifiers: Vomiting type: cyclical vomiting Vomiting Intractability: intractable Qualified Code(s): G43.A1 - Cyclical vomiting, intractable (5) Abdominal pain Qualifiers: Abdominal location: generalized Qualified Code(s): R10.84 - Generalized abdominal pain (6) Chest pain Qualifiers: Chest pain type: unspecified Qualified Code(s): R07.9 - Chest pain, unspecified
[2018-09-20] MEDS: Metoclopramide 10 MG/2 ML VIAL IVP SCH ×4 (05:03→22:46)
[2018-09-20] MEDS: Pantoprazole 40 MG VIAL IVP SCH ×2 (05:03→18:48)
[2018-09-20] MEDS: *HR* Heparin 5,000 UNIT/ML VIAL SQ SCH ×2 (05:03→18:47)
[2018-09-20 05:04] LABS: Basophils # 0.1 K/mcL (0.0-0.2); Basophils % 1.3 %; Eosinophils # 0.2 K/mcL (0.0-0.6); Eosinophils % 4.8 %; Hematocrit 29.9 % (37.5-50.1); Hemoglobin 10.9 g/dL (12.9-16.9); Immature Granulocytes % 0.3 % (0-4); Lymphocytes # 1.3 K/mcL (0.6-4.6); Lymphocytes % 35.9 %; Mean Corpuscular HGB Conc 36.5 g/dL (31.6-35.5); Mean Corpuscular Hemoglobin 32.2 pg (28.0-33.3); Mean Corpuscular Volume 88.2 fL (83.0-100.0); Mean Platelet Volume 9.7 fL (9.4-12.4); Monocytes # 0.3 K/mcL (0.0-1.3); Monocytes % 7.8 %; Neutrophils # 1.9 K/mcL (1.6-8.9); Platelet Count 128 K/mcL (140-400); Red Blood Count 3.39 M/mcL (4.19-5.50); Red Cell Distribution Width 12.9 % (11.5-14.5); Segmented Neutrophils % 49.9 %
[2018-09-20 05:22] LABS: BUN/Creatinine Ratio 11 (6-26); Blood Urea Nitrogen 6 mg/dL (6-20); Carbon Dioxide 28 mEq/L (23-29); Chloride 110 mEq/L (98-107); Glucose 109 mg/dL (70-105); Osmolality,Calculated 286 (280-300); Potassium 3.7 mEq/L (3.5-5.1); Sodium 139 mEq/L (136-145); eGFR For Non-African Americans > 60 (> 60)
[2018-09-20] MEDS: D5% in 0.9% NACL w KCl 20 MEQ/1,000 ML MLS IVC SCH ×2 (06:34→15:22)
[2018-09-20] MEDS: Sucralfate 1 GM TABLET PO SCH ×4 (08:52→22:46)
--- NOTE | 2018-09-20 09:09 | AcuteCareSurgery Progress Note ---
<Jenny Brito Gabriel - Last Filed: 09/20/18 09:05> Date of Encounter: 09/20/18 Time of Encounter: 07:20 - Assessment and Plan (1) Nausea & vomiting Current Visit: Yes Status: Chronic No acute surgical intervention is indicated. No indication for J-tube and the safety of placing a J-tube is questionable. Recommend In-patient psych consult. See attending attestation for further recommendations. Surgery will sign off at this time. Qualifiers: Vomiting type: cyclical vomiting Vomiting Intractability: intractable Qualified Code(s): G43.A1 - Cyclical vomiting, intractable Subjective Patient reports: no new complaints, tolerating liquids well, afebrile Narrative: Reports he "needs pop to bring my food back up. Water doesn't work." Objective Vital Signs - Last 8 Hours Temp Pulse Resp BP Pulse Ox 09/20/18 07:01 97.4 F L 59 17 106/76 100 09/20/18 03:51 96.6 F L 55 17 99/75 Intake and Output 09/19/18 09/20/18 09/20/18 23:59 07:59 15:59 Intake Total 1120 / 2540 1000 / 1000 Output Total 350 / 350 Balance 1120 / 1615 650 / 650 Intake: IV Fluids 1000 / 1000 1000 / 1000 KCl 20mEq in D5-0.9 NaCl 20 meq 1000 / 1000 1000 / 1000 In 1,000 ml @ 125 mls/hr IVC . Q8H [facility] Rx#:[id number] Oral 120 / 1540 Output: Urine 350 / 350 Other: Meal Dinner Percent of Meal Consumed 90% - General physical appearance other (standing in room at bedside. Sitter at bedside.) - ENT atraumatic, normocephalic - Respiratory other (not assessed) - Cardiovascular Addtional Comments: not assessed. he is standing upright in room and in no apparent distress - Integumentary no rash - Neurologic normal coordination - Musculoskeletal normal posture - Psychiatric oriented to time, oriented to person, oriented to place - Labs 09/20/18 04:32 09/20/18 04:32 Diabetes panel 09/20/18 Range/Units 04:32 Sodium 139 (136-145) mEq/L Potassium 3.7 (3.5-5.1) mEq/L Chloride 110 H (98-107) mEq/L Carbon Dioxide 28 (23-29) mEq/L BUN 6 (6-20) mg/dL Creatinine 0.56 L (0.70-1.30) mg/dL Glucose 109 H (70-105) mg/dL Calcium 8.0 L (8.6-10.3) mg/dL Calcium panel 09/20/18 Range/Units 04:32 Calcium 8.0 L (8.6-10.3) mg/dL Pituitary panel 09/20/18 Range/Units 04:32 Sodium 139 (136-145) mEq/L Potassium 3.7 (3.5-5.1) mEq/L Chloride 110 H (98-107) mEq/L Carbon Dioxide 28 (23-29) mEq/L BUN 6 (6-20) mg/dL Creatinine 0.56 L (0.70-1.30) mg/dL Glucose 109 H (70-105) mg/dL Calcium 8.0 L (8.6-10.3) mg/dL Adrenal panel 09/20/18 Range/Units 04:32 Sodium 139 (136-145) mEq/L Potassium 3.7 (3.5-5.1) mEq/L Chloride 110 H (98-107) mEq/L Carbon Dioxide 28 (23-29) mEq/L BUN 6 (6-20) mg/dL Creatinine 0.56 L (0.70-1.30) mg/dL Glucose 109 H (70-105) mg/dL Calcium 8.0 L (8.6-10.3) mg/dL Consult Discharge Plan - Plan Referrals: Juliocesar Rodriguez DO [Primary Care Provider] - (Appointment has been requested. ) <Osbaldo Barragan - Last Filed: 09/20/18 13:45> Date of Encounter: 09/20/18 Objective Vital Signs - Last 8 Hours Temp Pulse Resp BP Pulse Ox 09/20/18 11:40 97.8 F 106 17 111/75 100 09/20/18 07:01 97.4 F L 59 17 106/76 100 Intake and Output 09/19/18 09/20/18 09/20/18 23:59 07:59 15:59 Intake Total 1120 / 2540 1000 / 2440 1440 / 2440 Output Total 350 / 350 Balance 1120 / 1615 650 / 2090 1440 / 2090 Intake: IV Fluids 1000 / 1000 1000 / 1000 KCl 20mEq in D5-0.9 NaCl 20 meq 1000 / 1000 1000 / 1000 In 1,000 ml @ 125 mls/hr IVC . Q8H [facility] Rx#:[id number] Oral 120 / 1540 1440 / 1440 Output: Urine 350 / 350 Other: Meal Dinner Lunch Percent of Meal Consumed 90% 100% Stool Size Small # Voids 2 # Bowel Movements 1 - Labs 09/20/18 04:32 09/20/18 04:32 Diabetes panel 09/20/18 Range/Units 04:32 Sodium 139 (136-145) mEq/L Potassium 3.7 (3.5-5.1) mEq/L Chloride 110 H (98-107) mEq/L Carbon Dioxide 28 (23-29) mEq/L BUN 6 (6-20) mg/dL Creatinine 0.56 L (0.70-1.30) mg/dL Glucose 109 H (70-105) mg/dL Calcium 8.0 L (8.6-10.3) mg/dL Calcium panel 09/20/18 Range/Units 04:32 Calcium 8.0 L (8.6-10.3) mg/dL Pituitary panel 09/20/18 Range/Units 04:32 Sodium 139 (136-145) mEq/L Potassium 3.7 (3.5-5.1) mEq/L Chloride 110 H (98-107) mEq/L Carbon Dioxide 28 (23-29) mEq/L BUN 6 (6-20) mg/dL Creatinine 0.56 L (0.70-1.30) mg/dL Glucose 109 H (70-105) mg/dL Calcium 8.0 L (8.6-10.3) mg/dL Adrenal panel 09/20/18 Range/Units 04:32 Sodium 139 (136-145) mEq/L Potassium 3.7 (3.5-5.1) mEq/L Chloride 110 H (98-107) mEq/L Carbon Dioxide 28 (23-29) mEq/L BUN 6 (6-20) mg/dL Creatinine 0.56 L (0.70-1.30) mg/dL Glucose 109 H (70-105) mg/dL Calcium 8.0 L (8.6-10.3) mg/dL - Attending Attestation I have personally performed a face to face evaluation on this patient. I have reviewed and agree with the care plan. History and Exam by me shows: The patient is seen and evaluated on morning rounds with the acute care surgery team. He has an anatomically normal upper gastrointestinal tract. He is had multiple evaluations by gastroenterology. There is no indication for feeding tube. I believe that his nausea and vomiting his psychogenic and this should be treated aggressively even with inpatient eating disorder evaluation if necessary. Surgical feeding tube is not indicated. Surgery will sign off Osbaldo Barragan MD FACS
--- NOTE | 2018-09-20 09:25 | Electrocardiograph Report ---
[address] [address] Test Date: 2018-09-16 Pat Name: Juliocesar Calderón Department: EXAM4 Room: 2NE21 Gender: M Reed Press Feeder: : 1995 Requested By: Vaibhav Anders Order Number: [id number] Reading MD: Brenden Hinlke Measurements Intervals [place] Rate: 90 P: 91 MA: 165 QRS: 96 QRSD: 94 T: -85 QT: 459 QTc: 562 Interpretive Statements Sinus rhythm Probable anterior infarct, age indeterminate Abnormal T, consider ischemia, inferior leads Prolonged QT interval Electronically Signed On 09-20-2018 9:24:24 EDT by Brenden Hinkle
--- NOTE | 2018-09-20 11:27 | Electrocardiograph Report ---
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
--- NOTE | 2018-09-20 11:28 | AcuteCare Surgery Consult Note ---
Date of Encounter: 09/20/18 Time of Encounter: 13:28 Assessment and Plan (1) Nausea & vomiting Current Visit: Yes Status: Chronic See below. I informed the patient will be involved with placement of a J-tube versus placement of a gastrostomy tube. Since he is having problems with nausea vomiting once he has eating and swallow food I do think that a J-tube would be more appropriate. The patient however is unaware of the care and what would be involved with maintaining the J-tube and the fact that when having the J-tube placed it would have to be continuous tube feeds i.e. attached to a pump 24 hours a day. There is a possibility of being able to change the tube feeds to a 12-14 hour feed if he tolerates the volume. His mother is not present at this time and the grandparents states that there may be some concerns about overall cost of the tube feeds. I also explained that placement of the Jtube will not solve his nausea and vomiting problem. The purpose of the feeding tube will be to help supplement his nutrition. I suggested that they meet with social work and with the solar panel installer to discuss the after to placement care and what would be involved with maintaining the appropriate amount of feeds postprocedure. The patient also states he would like to think about it and we will revisit this with him tomorrow. Qualifiers: Vomiting type: cyclical vomiting Vomiting Intractability: intractable Qualified Code(s): G43.A1 - Cyclical vomiting, intractable History of Present Illness Consult date: 09/19/18 Requesting physician: Saul Boo History of present illness: Evert's note that this consultation was actually performed on 09/19/2008, however this was under Acute Care Surgery and not general surgery, therefore the format had to be changed to Acute Care Surgery. The patient is a 23-year-old male with a past medical history significant for ADHD and gastroparesis has been having symptoms of upper abdominal pain and nausea vomiting. He states that he has been having symptoms for the past several days and started to have some dizziness sensation. He also having issues with constipation. He states that whenever he tries to eat he feels a tightening in his throat and he also has the upper abdominal discomfort and some vomiting. He says that he vomits multiple times a day and has been evaluated by gastroenterology has had procedures performed including EGDs studies as well as CT scans of the abdomen and pelvis. The patient states that this morning he did attempt to the eat breakfast but then subsequently vomited. He says currently is not having any abdominal pain. He does made to a history of anxiety which was felt to possibly be related to his above-mentioned symptoms. He is been evaluated by nutrition who has documented severe protein calorie malnutrition and because of his inability to maintain his weight and episodes of nausea vomiting evidence of adequate patient for the possibility of placing a feeding tube. Past Med Surg Social Fam HX - Past Medical History Medical history: GERD Psychiatric history: no psych history - Past Surgical History Surgical History: appendectomy - Social History Smoking Status: Never smoker Smokeless Tobacco Status: No Alcohol use: none, occasionally Drug use: none - Family History Paternal Grandfather Hx Family Cardiac Disorders: Yes ([place]) Hx Family Endocrine Disorder: Yes (Diabetes) Paternal Grandmother Hx Family Cancer: Yes (colon) Hx Family Endocrine Disorder: Yes (diabetes) Father Hx Family Cardiac Disorders: Yes Medications and Allergies Hydrocortisone [Proctosol-Hc] 1 appl RC BID PRN 09/16/18 [History] Hydrocortisone/Pramoxine [Analpram Hc 2.5%-1% Lotion] 1 appl RC TID PRN 09/16/18 [History] Pantoprazole Sodium 40 mg PO DAILY 09/16/18 [History] dimenhyDRINATE [Dramamine] 50 mg PO DAILY PRN 09/16/18 [History] Allergy/AdvReac Type Severity Reaction Status Date / Time No Known Allergies Allergy Verified 02/08/18 13:03 Review of Systems All systems PM: reviewed and no additional remarkable complaints except as stated All systems PM: The remainder of the systems were reviewed and are negative General Surgery Exam Initial Vital Signs Temp Pulse Resp BP Pulse Ox 97.6 F 106 18 96/69 99 09/15/18 22:42 09/15/18 22:42 09/15/18 22:42 09/15/18 22:42 09/15/18 22:42 - Eyes PERRL, normal ocular movement - Respiratory normal expansion, normal respiratory effort, clear to auscultation - Cardiovascular Cardiovascular exam: Present: RRR, no murmurs/rubs/gallops - Abdomen Abdomen general surgery: Present: bowel sounds present, soft, tender (Tenderness to palpation in the left lower quadrant. No palpable masses noted) - Neurologic Present: CN 2-12 grossly intact - Musculoskeletal Present: other (No clubbing, cyanosis, or edema) - Psychiatric Psychiatric general surgery: Present: A&Ox3, oriented to person, oriented to place, oriented to time Exam Initial Vital Signs Temp Pulse Resp BP Pulse Ox 97.6 F 106 18 96/69 99 09/15/18 22:42 09/15/18 22:42 09/15/18 22:42 09/15/18 22:42 09/15/18 22:42 Results - Labs 09/21/18 05:14 09/21/18 05:14 Abnormal lab results WBC 3.7 K/mcL (4.3-11.1) L 09/20/18 04:32 RBC 3.39 M/mcL (4.19-5.50) L 09/20/18 04:32 Hgb 10.9 g/dL (12.9-16.9) L 09/20/18 04:32 Hct 29.9 % (37.5-50.1) L 09/20/18 04:32 MCHC 36.5 g/dL (31.6-35.5) H 09/20/18 04:32 Plt Count 128 K/mcL (140-400) L 09/20/18 04:32 Sodium 135 mEq/L (136-145) L 09/17/18 04:15 Potassium 2.9 mEq/L (3.5-5.1) L 09/17/18 16:12 Chloride 110 mEq/L (98-107) H 09/20/18 04:32 Carbon Dioxide 22 mEq/L (23-29) L 09/19/18 04:43 BUN 27 mg/dL (6-20) H 09/16/18 06:31 0.56 mg/dL (0.70-1.30) L 09/20/18 04:32 28 (6-26) H 09/16/18 06:31 Glucose 109 mg/dL (70-105) H 09/20/18 04:32 279 mOsm/kg (280-300) L 09/16/18 23:12 276 (280-300) L 09/16/18 06:31 Calcium 8.0 mg/dL (8.6-10.3) L 09/20/18 04:32 Venous Ioniz Calcium 1.12 mmol/L (1.15-1.35) L 09/17/18 04:48 177 mg/dL (203-362) L 09/18/18 07:18 1.9 mg/dL (0.3-1.0) H 09/16/18 06:31 2.0 mg/dL (0.3-1.0) H 09/16/18 06:31 0.4 mg/dL (0.0-0.2) H 09/15/18 23:49 1.7 mg/dL (0.0-1.2) H 09/16/18 06:31 9.2 g/dL (6.4-8.9) H 09/15/18 23:49 4.1 g/dL (2.4-3.5) H 09/15/18 23:49 U Marijuana (THC) Screen Positive ng/mL (Cutoff = 50) H 09/15/18 23:58 Diabetes panel 09/20/18 Range/Units 04:32 Sodium 139 (136-145) mEq/L Potassium 3.7 (3.5-5.1) mEq/L Chloride 110 H (98-107) mEq/L Carbon Dioxide 28 (23-29) mEq/L BUN 6 (6-20) mg/dL Creatinine 0.56 L (0.70-1.30) mg/dL Glucose 109 H (70-105) mg/dL Calcium 8.0 L (8.6-10.3) mg/dL Calcium panel 09/20/18 Range/Units 04:32 Calcium 8.0 L (8.6-10.3) mg/dL Pituitary panel 09/20/18 Range/Units 04:32 Sodium 139 (136-145) mEq/L Potassium 3.7 (3.5-5.1) mEq/L Chloride 110 H (98-107) mEq/L Carbon Dioxide 28 (23-29) mEq/L BUN 6 (6-20) mg/dL Creatinine 0.56 L (0.70-1.30) mg/dL Glucose 109 H (70-105) mg/dL Calcium 8.0 L (8.6-10.3) mg/dL Adrenal panel 09/20/18 Range/Units 04:32 Sodium 139 (136-145) mEq/L Potassium 3.7 (3.5-5.1) mEq/L Chloride 110 H (98-107) mEq/L Carbon Dioxide 28 (23-29) mEq/L BUN 6 (6-20) mg/dL Creatinine 0.56 L (0.70-1.30) mg/dL Glucose 109 H (70-105) mg/dL Calcium 8.0 L (8.6-10.3) mg/dL All other labs normal. Consult Discharge Plan - Plan Referrals: Juliocesar Rodriguez DO [Primary Care Provider] - (Appointment has been requested. )
--- NOTE | 2018-09-20 11:38 | Consult Note ---
Date of Encounter: 09/20/18 Time of Encounter: 11:22 Assessment & Recommendation (1) Generalized anxiety disorder Current visit: Yes Status: Acute Assessment & Recommendation: Client denies SI/HI/AH/VH. No significant mental health history. Does not meet criteria for inpatient mental health treatment. Continue to recommend outpatient therapy as client's clinical presentation is longstanding and will take time to improve/resolve. If he is able to keep down medications can try something like Zyprexa 5mg. It is an antipsychotic but it can help with anxiety. It also may help with any disordered thinking that is possibly going on. It also tends to stimulant one's appetite. Sometimes antipsychotics can have anti-nausea effects and he may be able to tolerate it as opposed to a med in a different drug class that could worsen nausea. Doubt he meets criteria for an Eating Disorders Clinic but it may be worth having Neuro Urologist make a referral. Suspect outpatient counseling/therapy will be the quickest and most effective way to start treatment. History of Present Illness Requesting Physician: Fredrick Calderón DO Reason for consult: nausea and vomiting with psychiatric origin History of present illness: Mr. Calderón is a 23 year old male who has been hospitalized with intractable nausea and vomiting that is believed to have a psychiatric origin. Client was seen by this senior technical writer two days ago. Agree there is likely a mental health component. Client has significant life stressors. He also seems to like the attention of his family and neuropsychology medical consultant and likely has primary and secondary gains from being in the hospital. However, he adamantly denies SI/HI/AH/VH and he has no history of serious mental health problems or treatment. Does not meet criteria for inpatient mental health treatment. He would benefit from outpatient treatment, especially counseling. His physical health issues have been going on since May 2017 and mental health factors that are contributing will not resolve quickly. Medications can be helpful but if he is not keeping anything down then they are unlikely to work. Therapy will be the most beneficial thing to get started. Client did spit up when this senior technical writer was in the room. States he constantly has sensations of stuff caught in his throat that he is trying to work up. He may be forcing himself to spit up but this behavior has been going on for so long it is likely almost reflexive in nature. He has also likely irritated his throat lining to the point that he legitimately feels like something is caught there and it is uncomfortable. He continues to believe his issues are all physical in nature but he is willing to follow up on referrals for anxiety management as well. There are Eating Disorder Clinics but he likely would not qualify as he does not present with classic symptoms of anorexia or bulemia. He wants to gain weight, he does not have a fear of being overweight, he enjoys food, he still has an appetite and he wants to eat. CC: Fredrick Calderón, DO Past Med Surg Social Fam HX - Past Medical History Medical history: GERD - Past Psychiatric History Psychiatric history: Reports: anxiety Family psychiatric history: Unknown Family History of Suicide: Unknown - Past Surgical History Surgical History: appendectomy - Social History Smoking Status: Never smoker Smokeless Tobacco Status: No Alcohol use: none, occasionally Drug use: none - Family History Paternal Grandfather Hx Family Cardiac Disorders: Yes ([place]) Hx Family Endocrine Disorder: Yes (Diabetes) Paternal Grandmother Hx Family Cancer: Yes (colon) Hx Family Endocrine Disorder: Yes (diabetes) Father Hx Family Cardiac Disorders: Yes Medications & Allergies Hydrocortisone [Proctosol-Hc] 1 appl RC BID PRN 09/16/18 [History] Hydrocortisone/Pramoxine [Analpram Hc 2.5%-1% Lotion] 1 appl RC TID PRN 09/16/18 [History] Pantoprazole Sodium 40 mg PO DAILY 09/16/18 [History] dimenhyDRINATE [Dramamine] 50 mg PO DAILY PRN 09/16/18 [History] Allergy/AdvReac Type Severity Reaction Status Date / Time No Known Allergies Allergy Verified 02/08/18 13:03 Review of Systems Constitutional: Reports: weakness Eyes: Denies: eye pain, vision change Ears, Nose, Throat: Denies: ear pain, throat pain, dental pain, hearing loss, congestion Cardiovascular: Reports: chest pain Respiratory: Denies: cough, dyspnea, wheezes Gastrointestinal: Reports: nausea, vomiting Genitourinary male: Denies: urgency, dysuria, frequency, genital lesions Musculoskeletal: Reports: other Integumentary: Denies: rash, lesions, pruritus Neurological: Denies: headache, weakness, numbness, memory loss Endocrine: Denies: fatigue, heat or cold intolerance Hematologic/Lymphatic: Denies: easy bruising, lymphadenopathy Allergic/Immunologic: Denies: urticaria, itchy eyes Psychiatry Exam - Constitutional Vitals: Temp Pulse Resp BP Pulse Ox 97.4 F L 59 17 106/76 100 09/20/18 07:01 09/20/18 07:01 09/20/18 07:01 09/20/18 07:01 09/20/18 07:01 General appearance: thin - Musculoskeletal Gait: normal Station: relaxed Strength & Tone: normal for patient - Psychiatric Patient Orientation: Yes Person, Yes Time, Yes Place Level of alertness: Alert Behavior: calm, cooperative Psychomotor activity: Normal Eye Contact: Maintains Eye Contact Mood Description: Anxious Affect description: congruent with mood, full range Speech Volume: Normal Speech pattern: normal rhythm, normal tone, fluent, spontaneous, rambling Language & Vocabulary: consistent with education Thought Process: Linear, Goal Oriented Thought Content: No Suicidal ideation, No Homicidal ideation, No Overt delusions Perceptual Disturbances: No Auditory hallucinations, No Visual hallucinations Attention Span Ability: Capable of Focused Attention Memory Description: Grossly Intact Patient Reliability: Reliable Historian Fund of knowledge: Yes abstraction ability, Yes aware of current events Intelligence Estimate: Average Judgment: Limited Insight: Partial Results - Labs Labs: Laboratory Last Values WBC 3.7 K/mcL (4.3-11.1) L 09/20/18 04:32 RBC 3.39 M/mcL (4.19-5.50) L 09/20/18 04:32 Hgb 10.9 g/dL (12.9-16.9) L 09/20/18 04:32 Hct 29.9 % (37.5-50.1) L 09/20/18 04:32 MCV 88.2 fL (83.0-100.0) 09/20/18 04:32 MCH 32.2 pg (28.0-33.3) 09/20/18 04:32 MCHC 36.5 g/dL (31.6-35.5) H 09/20/18 04:32 RDW 12.9 % (11.5-14.5) 09/20/18 04:32 Plt Count 128 K/mcL (140-400) L 09/20/18 04:32 MPV 9.7 fL (9.4-12.4) 09/20/18 04:32 Immature Gran % 0.3 % (0-4) 09/20/18 04:32 Seg Neutrophils % 49.9 % 09/20/18 04:32 35.9 % 09/20/18 04:32 7.8 % 09/20/18 04:32 4.8 % 09/20/18 04:32 1.3 % 09/20/18 04:32 1.9 K/mcL (1.6-8.9) 09/20/18 04:32 1.3 K/mcL (0.6-4.6) 09/20/18 04:32 0.3 K/mcL (0.0-1.3) 09/20/18 04:32 0.2 K/mcL (0.0-0.6) 09/20/18 04:32 0.1 K/mcL (0.0-0.2) 09/20/18 04:32 Immature Plt Fraction 3.3 % (1.1-6.1) 09/17/18 04:15 Sodium 139 mEq/L (136-145) 09/20/18 04:32 Potassium 3.7 mEq/L (3.5-5.1) 09/20/18 04:32 Chloride 110 mEq/L (98-107) H 09/20/18 04:32 Carbon Dioxide 28 mEq/L (23-29) 09/20/18 04:32 BUN 6 mg/dL (6-20) 09/20/18 04:32 0.56 mg/dL (0.70-1.30) L 09/20/18 04:32 Est GFR ( Amer) > 60 (> 60) 09/20/18 04:32 Est GFR (Non-Af Amer) > 60 (> 60) 09/20/18 04:32 11 (6-26) 09/20/18 04:32 Glucose 109 mg/dL (70-105) H 09/20/18 04:32 POC Glucose 93 mg/dL (70-99) 09/17/18 12:26 279 mOsm/kg (280-300) L 09/16/18 23:12 286 (280-300) 09/20/18 04:32 Lactic Acid 0.5 mmol/L (0.5-2.2) 09/16/18 03:16 Calcium 8.0 mg/dL (8.6-10.3) L 09/20/18 04:32 Venous Ioniz Calcium 1.12 mmol/L (1.15-1.35) L 09/17/18 04:48 Phosphorus 2.8 mg/dL (2.7-4.5) 09/19/18 04:43 Magnesium 2.1 mg/dL (1.6-2.6) 09/17/18 04:15 Iron 70 mcg/dL (65-175) 09/18/18 07:18 % Saturation 28 % (20-55) 09/18/18 07:18 177 mg/dL (203-362) L 09/18/18 07:18 192 ng/mL (20-250) 09/18/18 07:18 1.9 mg/dL (0.3-1.0) H 09/16/18 06:31 2.0 mg/dL (0.3-1.0) H 09/16/18 06:31 0.2 mg/dL (0.0-0.2) 09/16/18 06:31 1.7 mg/dL (0.0-1.2) H 09/16/18 06:31 AST 21 Units/L (13-39) 09/16/18 06:31 AST 22 Units/L (13-39) 09/16/18 06:31 ALT 10 Units/L (7-52) 09/16/18 06:31 ALT 10 Units/L (7-52) 09/16/18 06:31 61 Units/L (34-104) 09/16/18 06:31 62 Units/L (34-104) 09/16/18 06:31 < 0.03 ng/mL (< 0.04) 09/16/18 14:59 6.8 g/dL (6.4-8.9) 09/16/18 06:31 7.0 g/dL (6.4-8.9) 09/16/18 06:31 4.1 g/dL (3.5-5.7) 09/16/18 06:31 4.1 g/dL (3.5-5.7) 09/16/18 06:31 2.7 g/dL (2.4-3.5) 09/16/18 06:31 2.9 g/dL (2.4-3.5) 09/16/18 06:31 1.4 (1.1-2.2) 09/16/18 06:31 1.5 (1.1-2.2) 09/16/18 06:31 18 Units/L (11-82) 09/15/18 23:49 Vitamin B12 342 pg/mL (250-1100) 09/18/18 07:18 6.5 ng/mL (3.0-16.0) 09/18/18 07:18 703 mOsm/kg (300-1090) 09/18/18 16:35 64 mg/dL 09/18/18 16:35 28.3 mEq/L 09/18/18 16:35 Negative ng/mL (Xkuzds=397) 09/15/18 23:58 Ur Barbiturates Screen Negative ng/mL (Zzgybd=406) 09/15/18 23:58 Ur Phencyclidine Scrn Negative ng/mL (Cutoff=25) 09/15/18 23:58 Ur Amphetamines Screen Negative ng/mL (Xsshml=2232) 09/15/18 23:58 U Benzodiazepines Scrn Negative ng/mL (Ksitgi=740) 09/15/18 23:58 Negative ng/mL (Cutoff= 300) 09/15/18 23:58 U Marijuana (THC) Screen Positive ng/mL (Cutoff = 50) H 09/15/18 23:58 Ur Drug Screen Interp See Below 09/15/18 23:58 Hepatitis A IgM Ab Nonreactive (Nonreactive) 09/15/18 23:49 Hep Bs Antigen Nonreactive (Nonreactive) 09/15/18 23:49 Hep B Core IgM Ab Nonreactive (Nonreactive) 09/15/18 23:49 Hepatitis C Ab Screen Nonreactive (Nonreactive) 09/15/18 23:49 Consult Discharge Plan - Plan Referrals: Juliocesar Rodriguez DO [Primary Care Provider] - (Appointment has been requested. )
--- NOTE | 2018-09-20 14:31 | Internal Med Progress Note ---
<Fredrick Calderón - Last Filed: 09/20/18 16:34> Hospitalist Progress Note - Encounter Date of Encounter: 09/20/18 - Exam Vitals: Temp Pulse Resp BP Pulse Ox 97.8 F 71 17 101/71 100 09/20/18 11:40 09/20/18 15:00 09/20/18 11:40 09/20/18 15:00 09/20/18 11:40 - Assessment and Plan (1) Nausea & vomiting Current Visit: Yes Status: Chronic (2) Prolonged QT interval Current Visit: Yes Status: Resolved (3) Hypocalcemia Current Visit: Yes Status: Acute (4) Hypokalemia Current Visit: Yes Status: Acute (5) Abdominal pain Current Visit: Yes Status: Acute (6) Chest pain Current Visit: Yes Status: Chronic (7) Severe malnutrition Current Visit: Yes Status: Acute - Time Spent with Patient Total time spent is greater than 50% in coordination of care (as documented) at patient's floor/unit and/or counseling patient: Internal Medicine: Result - Labs CBC & Chem 7: 09/20/18 04:32 09/20/18 04:32 Labs: Short CBC 09/20/18 Range/Units 04:32 WBC 3.7 L (4.3-11.1) K/mcL Hgb 10.9 L (12.9-16.9) g/dL Hct 29.9 L (37.5-50.1) % Plt Count 128 L (140-400) K/mcL Neutrophils # 1.9 (1.6-8.9) K/mcL BMP 09/20/18 04:32 Sodium 139 Potassium 3.7 Chloride 110 H Carbon Dioxide 28 BUN 6 Creatinine 0.56 L Glucose 109 H Calcium 8.0 L Consult Discharge Plan - Plan Referrals: Juliocesar Rodriguez DO [Primary Care Provider] - (Appointment has been requested. ) - Attending Attestation I examined this patient and my medical decision-making was reviewed with the Resident Physician on 09/20/18. I agree with the documented findings, disposition and treatment plan as described except to the extent set forth below. Mr Calderón is currently admitted for hypokalemia and intractable nausea and vomiting. He remains moderate to high risk. Mr Calderón continues to have some vomiting though seems to be less. No fever or chills. No CP at this time. Had some abdominal pain earlier today. Tolerating puree food. Exam alert Comfortable Mucus membranes dry Heart not tachy No wheeze abd nontender now I/P 1. Intractable N/V - seems to be doing a little better today. Continue antiemetics and small amounts of PO intake. 2. Probable gastroparesis - emptying study tomorrow. 3. Possible bulimia - pt has significant globus sensation and anxiety. Appreciate psych input. 4. Replace electrolytes as needed. Further diagnoses and plan as above. <Raad Judd - Last Filed: 09/20/18 17:14> Hospitalist Progress Note - Encounter Date of Encounter: 09/20/18 Time of Encounter: 09:15 - Subjective Interval History: Patient submitted a bedside and eating soups for breakfast. He does feel like the Carafate and PPI are providing mild relief, but he continues to have intermittent abdominal pain, nausea, and vomiting. He has not had any vomiting this morning, but he has not eaten until now. He does report vomiting last night. He continues to describe a feeling of food irritating and getting stuck in his throat. He reports he will continue to try to work on eating with his modified and soft. He still feels that his anxiety is not well controlled on Vistaril. There are no acute overnight events. - Exam Vitals: Temp Pulse Resp BP Pulse Ox 97.8 F 106 17 111/75 100 09/20/18 11:40 09/20/18 11:40 09/20/18 11:40 09/20/18 11:40 09/20/18 11:40 Exam: GEN: No acute distress, A&O3, thin HEAD: Atraumatic, normocephalic EYES: Pupils symmetric, sclera white, conjunctiva pink HEART: RRR, normal S1 and S2, no murmurs LUNGS: Clear to auscultation bilaterally, no wheezes, rhonchi, or crackles ABD: Soft, nontender, nondistended, bowel sounds present EXT: No edema noted, pulses 2/4 NEURO: No focal deficits, cooperative with exam SKIN: pale, no rashes or lesions - Assessment and Plan (1) Nausea & vomiting Current Visit: Yes Status: Chronic Assessment and Plan: Likely secondary to anxiety and psychiatric etiology Psych consult recommended treatment of anxiety with counseling. On vistaril currently - recommended possible trial of zyprexa, and will consider this in the future - no indication for inpatient psychiatric care - recommended out-patient counseling and treatment - possible atypical eating disorder or munchausen SW working on possible placement for more specialized care Currently on NS with KCl and dextrose The patient is having substantial weight loss and is unable to maintain nutrition Gen Surg was consulted and recommended against a J-tube placement for concern of his ability to care and maintain the J-tube GI had commented on possible gastroparesis but no confirmation study has been conducted - will plan for gastric emptying study tomorrow Continues on reglan Now on pureed diet and liquids to help with his swallowing/irritation of his throat (2) Abdominal pain Current Visit: Yes Status: Acute Assessment and Plan: Epigastric abdominal pain, resembles GERD. Gastritis on EGD Continue carafate and protonix (3) Hypocalcemia Current Visit: Yes Status: Acute Assessment and Plan: Replace IV and continue to monitor (4) Hypokalemia Current Visit: Yes Status: Acute Assessment and Plan: Stable today with IV replacement - continue at this time and monitor (5) Severe malnutrition Current Visit: Yes Status: Acute Assessment and Plan: Severe protein calorie malnutrition Patient is unable to maintain nutrition status due to nausea and vomiting Although anxiety may play a large role in this, the patient is unable to hold food down at this time J-tube deemed not an appropriate treatment at this time Nutrition following - attempting pureed diet and liquids today (6) Prolonged QT interval Current Visit: Yes Status: Resolved Assessment and Plan: Now resolved DVT Prophylaxis: SQ heparin - Time Spent with Patient Total time spent is greater than 50% in coordination of care (as documented) at patient's floor/unit and/or counseling patient: Internal Medicine: Result - Labs CBC & Chem 7: 09/20/18 04:32 09/20/18 04:32 Labs: Short CBC 09/20/18 Range/Units 04:32 WBC 3.7 L (4.3-11.1) K/mcL Hgb 10.9 L (12.9-16.9) g/dL Hct 29.9 L (37.5-50.1) % Plt Count 128 L (140-400) K/mcL Neutrophils # 1.9 (1.6-8.9) K/mcL BMP 09/20/18 04:32 Sodium 139 Potassium 3.7 Chloride 110 H Carbon Dioxide 28 BUN 6 Creatinine 0.56 L Glucose 109 H Calcium 8.0 L <Fredrick Calderón A - Last Filed: 09/20/18 16:34> (1) Nausea & vomiting Qualifiers: Vomiting type: cyclical vomiting Vomiting Intractability: intractable Qualified Code(s): G43.A1 - Cyclical vomiting, intractable (5) Abdominal pain Qualifiers: Abdominal location: generalized Qualified Code(s): R10.84 - Generalized abdominal pain (6) Chest pain Qualifiers: Chest pain type: unspecified Qualified Code(s): R07.9 - Chest pain, unspecified <Raad Judd R - Last Filed: 09/20/18 17:14> (1) Nausea & vomiting Qualifiers: Vomiting type: cyclical vomiting Vomiting Intractability: intractable Qualified Code(s): G43.A1 - Cyclical vomiting, intractable (2) Abdominal pain Qualifiers: Abdominal location: generalized Qualified Code(s): R10.84 - Generalized abd ominal pain
[2018-09-20] MEDS ORDERED: Lidocaine Viscous Oral Soln 15 ML SOLUTION MM PRN (18:32)
[2018-09-20] MEDS ORDERED: hydrOXYzine pamoate 25 MG CAPSULE PO PRN (18:32)
[2018-09-20] MEDS ORDERED: Naloxone 0.4 MG/ML INJ IVP PRN (18:32)
[2018-09-20] MEDS ORDERED: D5% in 0.9% NACL w KCl 20 MEQ/1,000 ML MLS IVC SCH (18:32)
[2018-09-21] MEDS: Pantoprazole 40 MG VIAL IVP SCH ×2 (05:18→18:13)
[2018-09-21] MEDS: *HR* Heparin 5,000 UNIT/ML VIAL SQ SCH ×2 (05:18→18:11)
[2018-09-21] MEDS: Metoclopramide 10 MG/2 ML VIAL IVP SCH ×3 (05:20→18:13)
[2018-09-21 05:47] LABS: Eosinophils # 0.3 K/mcL (0.0-0.6); Eosinophils % 6.6 %; Hematocrit 31.4 % (37.5-50.1); Hemoglobin 11.1 g/dL (12.9-16.9); Immature Granulocytes % 0.3 % (0-4); Lymphocytes # 1.1 K/mcL (0.6-4.6); Lymphocytes % 29.1 %; Mean Corpuscular HGB Conc 35.4 g/dL (31.6-35.5); Mean Corpuscular Hemoglobin 31.5 pg (28.0-33.3); Mean Corpuscular Volume 89.2 fL (83.0-100.0); Mean Platelet Volume 9.6 fL (9.4-12.4); Monocytes # 0.3 K/mcL (0.0-1.3); Monocytes % 8.1 %; Neutrophils # 2.1 K/mcL (1.6-8.9); Platelet Count 128 K/mcL (140-400); Red Blood Count 3.52 M/mcL (4.19-5.50); Red Cell Distribution Width 13.1 % (11.5-14.5); Segmented Neutrophils % 54.9 %
[2018-09-21 06:08] LABS: BUN/Creatinine Ratio 11 (6-26); Blood Urea Nitrogen 6 mg/dL (6-20); Calcium 8.7 mg/dL (8.6-10.3); Carbon Dioxide 25 mEq/L (23-29); Chloride 109 mEq/L (98-107); Glucose 102 mg/dL (70-105); Osmolality,Calculated 284 (280-300); Sodium 138 mEq/L (136-145); eGFR For Non-African Americans > 60 (> 60)
--- NOTE | 2018-09-21 08:35 | Internal Med Progress Note ---
<Raad Judd R - Last Filed: 09/21/18 16:28> Hospitalist Progress Note - Encounter Date of Encounter: 09/21/18 Time of Encounter: 08:50 - Subjective Interval History: Patient seen and examined. Reports continued vomiting after eating and globus sensation. He is requesting a mechanical soft diet as he feels this is better for him. Still reporting anxiety as well and one brief episode of chest pain that resolved after laying down to calm down. Denies other symptoms. No acute overnight events. - Exam Vitals: Temp Pulse Resp BP Pulse Ox 97.4 F L 61 16 112/75 100 09/21/18 04:19 09/21/18 04:19 09/21/18 04:19 09/21/18 04:09/21/18 04:19 Exam: GEN: No acute distress, A&O3, thin HEAD: Atraumatic, normocephalic EYES: Pupils symmetric, sclera white, conjunctiva pink HEART: RRR, normal S1 and S2, no murmurs LUNGS: Clear to auscultation bilaterally, no wheezes, rhonchi, or crackles ABD: Soft, nontender, nondistended, bowel sounds present EXT: No edema noted, pulses 2/4 NEURO: No focal deficits, cooperative with exam SKIN: pale, no rashes or lesions PSYCH: mood is "anxious" and affect reactive - Assessment and Plan (1) Nausea & vomiting Current Visit: Yes Status: Chronic Assessment and Plan: Likely secondary to anxiety and psychiatric etiology Psych consult recommended treatment of anxiety with counseling. On vistaril currently - recommended possible trial of zyprexa, and will discuss this with the patient as a possibility - will start to work towards changing medications to PO in trial for preparation for discharge SW working on possible placement for more specialized care Will switch to D5 NS and change K to oral The patient is having substantial weight loss and is unable to maintain nutrition Not considered a good candidate for J-tube per Gen Surg GI had commented on possible gastroparesis but no confirmation study has been conducted - he will need to be off reglan for 48 hours, unclear if he will be able to do this - may consider trying to obtain either on Monday or as an out-patient Continues on reglan at this time Will switch to mechanical soft diet per patient request He has not had any ENT eval for his globus sensation, so he may benefit from this as an out-patient (2) Abdominal pain Current Visit: Yes Status: Acute Assessment and Plan: Epigastric abdominal pain, resembles GERD. Gastritis on EGD Continue carafate and protonix (3) Hypocalcemia Current Visit: Yes Status: Acute Assessment and Plan: Improved to 8.7. Continue to monitor at this time (4) Hypokalemia Current Visit: Yes Status: Acute Assessment and Plan: Stable. Will trial PO replacement instead of IV (5) Severe malnutrition Current Visit: Yes Status: Acute Assessment and Plan: Severe protein calorie malnutrition Patient has been unable to maintain nutrition status due to nausea and vomiting Although anxiety may play a large role in this, the patient is unable to hold food down at this time J-tube deemed not an appropriate treatment at this time Nutrition following appreciate recommendations (6) Prolonged QT interval Current Visit: Yes Status: Resolved Assessment and Plan: Resolved DVT Prophylaxis: SQ heparin - Time Spent with Patient Total time spent is greater than 50% in coordination of care (as documented) at patient's floor/unit and/or counseling patient: Internal Medicine: Result - Labs CBC & Chem 7: 09/21/18 05:14 09/21/18 05:14 Labs: Short CBC 09/21/18 Range/Units 05:14 WBC 3.8 L (4.3-11.1) K/mcL Hgb 11.1 L (12.9-16.9) g/dL Hct 31.4 L (37.5-50.1) % Plt Count 128 L (140-400) K/mcL Neutrophils # 2.1 (1.6-8.9) K/mcL BMP 09/21/18 05:14 Sodium 138 Potassium 4.0 Chloride 109 H Carbon Dioxide 25 BUN 6 Creatinine 0.54 L Glucose 102 Calcium 8.7 Consult Discharge Plan - Plan Referrals: Juliocesar Rodriguez DO [Primary Care Provider] - (Appointment has been requested. ) <Fredrick Calderón - Last Filed: 09/21/18 19:38> Hospitalist Progress Note - Encounter Date of Encounter: 09/21/18 - Exam Vitals: Temp Pulse Resp BP Pulse Ox 97.3 F L 64 14 109/71 100 09/21/18 16:00 09/21/18 18:48 09/21/18 18:48 09/21/18 18:48 09/21/18 16:00 - Assessment and Plan (1) Nausea & vomiting Current Visit: Yes Status: Chronic (2) Prolonged QT interval Current Visit: Yes Status: Resolved (3) Hypocalcemia Current Visit: Yes Status: Acute (4) Hypokalemia Current Visit: Yes Status: Acute (5) Abdominal pain Current Visit: Yes Status: Acute (6) Chest pain Current Visit: Yes Status: Chronic (7) Severe malnutrition Current Visit: Yes Status: Acute - Time Spent with Patient Total time spent is greater than 50% in coordination of care (as documented) at patient's floor/unit and/or counseling patient: Internal Medicine: Result - Labs CBC & Chem 7: 09/21/18 05:14 09/21/18 05:14 Labs: Short CBC 09/21/18 Range/Units 05:14 WBC 3.8 L (4.3-11.1) K/mcL Hgb 11.1 L (12.9-16.9) g/dL Hct 31.4 L (37.5-50.1) % Plt Count 128 L (140-400) K/mcL Neutrophils # 2.1 (1.6-8.9) K/mcL BMP 09/21/18 05:14 Sodium 138 Potassium 4.0 Chloride 109 H Carbon Dioxide 25 BUN 6 Creatinine 0.54 L Glucose 102 Calcium 8.7 - Attending Attestation I examined this patient and my medical decision-making was reviewed with the Resident Physician on 09/21/18. I agree with the documented findings, disposition and treatment plan as described except to the extent set forth below. Mr Calderón is currently admitted for hypokalemia and intractable vomiting. He remains moderate to high risk due to potential for worsening clinical status. Mr Calderón is doing OK. He wants mech soft diet. No fever or chills. Still vomiting. Exam alert Comfortable at this time Mucus membranes dry Heart not tachy No wheeze abd soft I/P 1. Intractable nausea and vomiting - adjusting meds 2. Hypokalemia - change to PO and see if he tolerates 3. Anxiety Further diagnoses and plan as above. <Raad Judd R - Last Filed: 09/21/18 16:28> (1) Nausea & vomiting Qualifiers: Vomiting type: cyclical vomiting Vomiting Intractability: intractable Qualified Code(s): G43.A1 - Cyclical vomiting, intractable (2) Abdominal pain Qualifiers: Abdominal location: generalized Qualified Code(s): R10.84 - Generalized abdominal pain <Fredrick Calderón A - Last Filed: 09/21/18 19:38> (1) Nausea & vomiting Qualifiers: Vomiting type: cyclical vomiting Vomiting Intractability: intractable Qualified Code(s): G43.A1 - Cyclical vomiting, intractable (5) Abdominal pain Qualifiers: Abdominal location: generalized Qualified Code(s): R10.84 - Generalized abdominal pain (6) Chest pain Qualifiers: Chest pain type: unspecified Qualified Code(s): R07.9 - Chest pain, unspecified
[2018-09-21] MEDS ORDERED: D5% in 0.9% NACL w KCl 20 MEQ/1,000 ML MLS IVC SCH (09:00)
[2018-09-21] MEDS: Sucralfate 1 GM TABLET PO SCH ×4 (09:15→22:25)
--- NOTE | 2018-09-21 13:41 | Nephrology Progress Note ---
Date of Encounter: 09/21/18 Time of Encounter: 13:41 - Assessment and Plan (1) Hypokalemia Current Visit: Yes Status: Acute (2) Chest pain Current Visit: Yes Status: Chronic Qualifiers: Chest pain type: unspecified Qualified Code(s): R07.9 - Chest pain, unspecified (3) Nausea & vomiting Current Visit: Yes Status: Chronic Qualifiers: Vomiting type: cyclical vomiting Vomiting Intractability: intractable Qualified Code(s): G43.A1 - Cyclical vomiting, intractable (4) Generalized anxiety disorder Current Visit: Yes Status: Acute Objective - Vital Signs Vital signs: Vital Signs Temp Pulse Resp BP Pulse Ox 09/21/18 12:00 98.3 F 86 16 117/66 99 09/21/18 08:59 97.4 F L 59 16 121/79 100 09/21/18 04:19 97.4 F L 61 16 112/75 100 09/20/18 22:38 97.5 F L 95 17 109/62 100 09/20/18 15:00 71 101/71 Intake and Output 09/20/18 09/21/18 09/21/18 23:59 07:59 15:59 Intake Total 1110 / 4550 0 / 0 Output Total 500 / 2350 500 / 500 Balance 610 / 2200 -500 / -500 Intake: IV Fluids 1110 / 3110 0.9 % Sodium Chloride 1,000 ML 1000 / 1000 @ 100 mls/hr IVC .Q10H [facility] Rx#: [id number] Calcium Gluconate 1,000 MG In 0 110 / 110 .9 % Sodium Chloride 100 ML @ 220 mls/hr IVPB ONCE ONE Rx#: [id number] Oral 0 / 0 Output: Emesis 500 / 2000 500 / 500 Other: Stool Size Small # Voids 1 1 1 Weight 52.3 kg Patient Weight 09/21/18 23:59 Weight 52.3 kg - Lab 09/21/18 05:14 09/21/18 05:14 Most recent lab results 09/21/18 05:14 Calcium 8.7 Consult Discharge Plan - Plan Referrals: Juliocesar Rodriguez DO [Primary Care Provider] - (Appointment has been requested. )
[2018-09-21] MEDS: D5% in 0.9% NACL 1,000 ML IVC SCH ×2 (13:42→22:25)
[2018-09-21] MEDS: Potassium Chloride Elixir 20 MEQ/15 ML UDC PO SCH (13:43)
[2018-09-22] MEDS: Metoclopramide 10 MG/2 ML VIAL IVP SCH ×4 (00:55→17:00)
[2018-09-22] MEDS: Sucralfate 1 GM TABLET PO SCH ×4 (06:31→21:06)
[2018-09-22] MEDS: D5% in 0.9% NACL 1,000 ML IVC SCH (06:31)
[2018-09-22] MEDS: Pantoprazole 40 MG VIAL IVP SCH ×2 (06:31→17:00)
[2018-09-22] MEDS: *HR* Heparin 5,000 UNIT/ML VIAL SQ SCH ×2 (06:33→16:59)
[2018-09-22] MEDS: Potassium Chloride Elixir 20 MEQ/15 ML UDC PO SCH (08:07)
--- NOTE | 2018-09-22 09:09 | Internal Med Progress Note ---
<Saul Boo - Last Filed: 09/22/18 09:00> Hospitalist Progress Note - Encounter Date of Encounter: 09/22/18 Time of Encounter: 09:09 - Subjective Interval History: The patient is resting at bedside at time of examination. He says that he is feeling well overall and that he was able to keep his potassium supplement down this morning although it did cause some nausea. He says that he would prefer to try potassium tablets rather than liquid if possible. He otherwise says that he has no acute complaints and that he is in good spirits. - Exam Vitals: Temp Pulse Resp BP Pulse Ox 97.7 F 68 15 112/69 100 09/22/18 02:41 09/22/18 02:41 09/22/18 02:41 09/22/18 02:41 09/21/18 16:00 Exam: GEN: No acute distress, A&O3, thin HEAD: Atraumatic, normocephalic EYES: Pupils symmetric, sclera white, conjunctiva pink NEURO: No focal deficits, cooperative with exam SKIN: pale, no rashes or lesions PSYCH: mood is "anxious" and affect reactive - Assessment and Plan (1) Nausea & vomiting Current Visit: Yes Status: Chronic Assessment and Plan: Likely secondary to anxiety and psychiatric etiology Psych consult recommended treatment of anxiety with both counseling and potential medication Specifically, psychiatrist recommended Vistaril 50 mg every 6 hours when necessary The patient has had one to one sitter as there is a suspicion for bulimia and intentional vomiting Psychiatry does not suspect that he will qualify for inpatient treatment for bulimia We have also considered gastroparesis and workup with gastric emptying study however patient cannot tolerate 48 hours without nausea medication He may be a better candidate for outpatient gastric emptying study Additionally, the patient should get ENT evaluation for globose sensation as outpatient May also need manometry If able to tolerate fluids and PO K+, stable for DC (2) Prolonged QT interval Current Visit: Yes Status: Resolved Assessment and Plan: Stable (3) Hypocalcemia Current Visit: Yes Status: Resolved Assessment and Plan: Resolved (4) Hypokalemia Current Visit: Yes Status: Acute Assessment and Plan: Transitioned to PO potassium yesterday, waiting on repeat labs. If potassium stable, plan for dc on PO potassium supplement (5) Abdominal pain Current Visit: Yes Status: Acute Assessment and Plan: Epigastric abdominal pain, resembles GERD Patient did have gastritis on EGD Continue protonix, carafate, reglan (6) Chest pain Current Visit: Yes Status: Chronic Assessment and Plan: Likely secondary to nausea/vomiting + gastritis + anxiety Patient was started on Vistaril and Carafate (7) Severe malnutrition Current Visit: Yes Status: Acute - Time Spent with Patient Total time spent is greater than 50% in coordination of care (as documented) at patient's floor/unit and/or counseling patient: Internal Medicine: Result - Labs CBC & Chem 7: 09/21/18 05:14 09/21/18 05:14 Consult Discharge Plan - Plan Referrals: Juliocesar Rodriguez DO [Primary Care Provider] - (Appointment has been requested. ) <Fredrick Calderón - Last Filed: 09/22/18 18:05> Hospitalist Progress Note - Encounter Date of Encounter: 09/22/18 - Exam Vitals: Temp Pulse Resp BP Pulse Ox 97.3 F L 70 16 114/69 99 09/22/18 13:00 09/22/18 13:00 09/22/18 13:00 09/22/18 13:00 09/22/18 13:00 - Assessment and Plan (1) Prolonged QT interval Current Visit: Yes Status: Resolved (2) Hypocalcemia Current Visit: Yes Status: Resolved (3) Hypokalemia Current Visit: Yes Status: Acute (4) Abdominal pain Current Visit: Yes Status: Acute (5) Chest pain Current Visit: Yes Status: Chronic (6) Nausea & vomiting Current Visit: Yes Status: Chronic (7) Severe malnutrition Current Visit: Yes Status: Acute - Time Spent with Patient Total time spent is greater than 50% in coordination of care (as documented) at patient's floor/unit and/or counseling patient: Internal Medicine: Result - Labs CBC & Chem 7: 09/22/18 09:39 09/22/18 09:39 Labs: Short CBC 09/22/18 Range/Units 09:39 WBC 4.0 L (4.3-11.1) K/mcL Hgb 12.2 L (12.9-16.9) g/dL Hct 34.5 L (37.5-50.1) % Plt Count 166 (140-400) K/mcL Neutrophils # 2.6 (1.6-8.9) K/mcL BMP 09/22/18 09:39 Sodium 136 Potassium 4.1 Chloride 107 Carbon Dioxide 26 BUN 6 Creatinine 0.55 L Glucose 89 Calcium 9.2 - Attending Attestation I examined this patient and my medical decision-making was reviewed with the Resident Physician on 09/22/18. I agree with the documented findings, disposition and treatment plan as described except to the extent set forth below. Mr Calderón is currently admitted for intractable vomiting. He remains moderate to high risk due to potential for worsening clinical status. Mr Calderón is in bathroom. He has been vomiting again. Switched to PO potassium today. Exam alert Mucus membranes dry Not tachy No wheeze I/P 1. Intractable vomiting - persists. Continue meds 2. Hypokalemia - resolved. Changing to PO med Further diagnoses and plan as above. <Saul Boo - Last Filed: 09/22/18 09:00> (1) Nausea & vomiting Qualifiers: Vomiting type: cyclical vomiting Vomiting Intractability: intractable Qualified Code(s): G43.A1 - Cyclical vomiting, intractable (5) Abdominal pain Qualifiers: Abdominal location: generalized Qualified Code(s): R10.84 - Generalized abdominal pain (6) Chest pain Qualifiers: Chest pain type: unspecified Qualified Code(s): R07.9 - Chest pain, unspecified <Fredrick Calderón Samantha - Last Filed: 09/22/18 18:05> (4) Abdominal pain Qualifiers: Abdominal location: generalized Qualified Code(s): R10.84 - Generalized abdominal pain (5) Chest pain Qualifiers: Chest pain type: unspecified Qualified Code(s): R07.9 - Chest pain, unspecified (6) Nausea & vomiting Qualifiers: Vomiting type: cyclical vomiting Vomiting Intractability: intractable Qualified Code(s): G43.A1 - Cyclical vomiting, intractable
[2018-09-22 10:31] LABS: Basophils % 0.7 %; Eosinophils # 0.1 K/mcL (0.0-0.6); Eosinophils % 2.5 %; Hematocrit 34.5 % (37.5-50.1); Hemoglobin 12.2 g/dL (12.9-16.9); Immature Granulocytes % 0.2 % (0-4); Mean Corpuscular HGB Conc 35.4 g/dL (31.6-35.5); Mean Corpuscular Hemoglobin 31.8 pg (28.0-33.3); Mean Corpuscular Volume 89.8 fL (83.0-100.0); Mean Platelet Volume 9.4 fL (9.4-12.4); Monocytes # 0.3 K/mcL (0.0-1.3); Monocytes % 7.9 %; Neutrophils # 2.6 K/mcL (1.6-8.9); Platelet Count 166 K/mcL (140-400); Red Blood Count 3.84 M/mcL (4.19-5.50); Red Cell Distribution Width 13.4 % (11.5-14.5); Segmented Neutrophils % 63.7 %
[2018-09-22 10:47] LABS: BUN/Creatinine Ratio 11 (6-26); Blood Urea Nitrogen 6 mg/dL (6-20); Calcium 9.2 mg/dL (8.6-10.3); Carbon Dioxide 26 mEq/L (23-29); Chloride 107 mEq/L (98-107); Glucose 89 mg/dL (70-105); Osmolality,Calculated 279 (280-300); Potassium 4.1 mEq/L (3.5-5.1); Sodium 136 mEq/L (136-145); eGFR For Non-African Americans > 60 (> 60)
[2018-09-22] MEDS ORDERED: *HR* LORazepam 2 MG/ML VIAL IVP ONE (17:10)
[2018-09-22] MEDS: OLANZapine 5 MG TAB.RAPDIS PO SCH (21:06)
[2018-09-23] MEDS: Metoclopramide 10 MG/2 ML VIAL IVP SCH ×4 (01:45→16:16)
[2018-09-23] MEDS: *HR* Heparin 5,000 UNIT/ML VIAL SQ SCH ×2 (05:55→16:16)
[2018-09-23] MEDS: Pantoprazole 40 MG VIAL IVP SCH (05:55)
[2018-09-23 06:38] LABS: Basophils % 0.6 %; Eosinophils # 0.2 K/mcL (0.0-0.6); Eosinophils % 3.5 %; Hematocrit 31.4 % (37.5-50.1); Hemoglobin 11.1 g/dL (12.9-16.9); Immature Granulocytes % 0.2 % (0-4); Lymphocytes # 1.4 K/mcL (0.6-4.6); Lymphocytes % 29.4 %; Mean Corpuscular HGB Conc 35.4 g/dL (31.6-35.5); Mean Corpuscular Volume 90.5 fL (83.0-100.0); Mean Platelet Volume 9.4 fL (9.4-12.4); Monocytes # 0.4 K/mcL (0.0-1.3); Monocytes % 9.1 %; Neutrophils # 2.8 K/mcL (1.6-8.9); Platelet Count 171 K/mcL (140-400); Red Blood Count 3.47 M/mcL (4.19-5.50); Red Cell Distribution Width 13.6 % (11.5-14.5); Segmented Neutrophils % 57.2 %
[2018-09-23 06:50] LABS: BUN/Creatinine Ratio 19 (6-26); Blood Urea Nitrogen 14 mg/dL (6-20); Calcium 9.2 mg/dL (8.6-10.3); Carbon Dioxide 30 mEq/L (23-29); Chloride 106 mEq/L (98-107); Glucose 111 mg/dL (70-105); Osmolality,Calculated 291 (280-300); Potassium 3.7 mEq/L (3.5-5.1); Sodium 140 mEq/L (136-145); eGFR For Non-African Americans > 60 (> 60)
[2018-09-23] MEDS: Ondansetron 4 MG/2 ML VIAL IVP PRN ×2 (07:39→20:26)
[2018-09-23] MEDS: Potassium Chloride Elixir 20 MEQ/15 ML UDC PO SCH ×2 (07:39→20:26)
[2018-09-23] MEDS: Sucralfate 1 GM TABLET PO SCH ×4 (07:39→20:26)
--- NOTE | 2018-09-23 09:05 | Internal Med Progress Note ---
<Saul Boo - Last Filed: 09/23/18 09:59> Hospitalist Progress Note - Encounter Date of Encounter: 09/23/18 Time of Encounter: 08:59 - Subjective Interval History: The patient is resting in bed at time of exam. He did have several disputes yesterday including an argument with his grandmother over a milkshake which he felt was too thick for his liking, and as a result he decided to yell at her and then call the making establishment and yell at them as well. Following this encounter, the patient had increased episodes of emesis, and later admitted to being able to control his vomiting to one of the nurses. I did give the patient a dose of ativan which seemed to have helped the patient, and he also started zyprexa last night. - Exam Vitals: Temp Pulse Resp BP Pulse Ox 97.6 F 73 14 108/72 100 09/23/18 07:40 09/23/18 07:40 09/23/18 07:40 09/23/18 07:40 09/23/18 07:40 Exam: GEN: No acute distress, A&O3, thin HEAD: Atraumatic, normocephalic EYES: Pupils symmetric, sclera white, conjunctiva pink NEURO: No focal deficits, cooperative with exam SKIN: pale, no rashes or lesions PSYCH: mood is "anxious" and affect reactive - Assessment and Plan (1) Nausea & vomiting Current Visit: Yes Status: Chronic Assessment and Plan: Likely secondary to anxiety and psychiatric etiology Psych consult recommended treatment of anxiety with both counseling and potential medication Specifically, psychiatrist recommended Vistaril 50 mg every 6 hours when necessary The patient has had one to one sitter as there is a suspicion for bulimia and intentional vomiting Psychiatry does not suspect that he will qualify for inpatient treatment for bulimia We have also considered gastroparesis and workup with gastric emptying study h owever patient cannot tolerate 48 hours without nausea medication He may be a better candidate for outpatient gastric emptying study Additionally, the patient should get ENT evaluation for globose sensation as outpatient May also need manometry If able to tolerate fluids and PO K+, stable for DC (2) Hypokalemia Current Visit: Yes Status: Acute Assessment and Plan: Transitioned to PO potassium, saw drop in potassium however still currently at acceptable level. I do have concerns that, at the rate of the drop in potassium, it may become unacceptable quickly if it continues at the current rate. As a result, I will keep the patient for one more day, increase to BID dosing and check labs again tomorrow. If it drops again, I will increase the dose and potentially increase my efforts at anti-emetic therapy. (3) Prolonged QT interval Current Visit: Yes Status: Resolved Assessment and Plan: Stable (4) Hypocalcemia Current Visit: Yes Status: Resolved Assessment and Plan: Resolved (5) Abdominal pain Current Visit: Yes Status: Acute Assessment and Plan: Epigastric abdominal pain, resembles GERD Patient did have gastritis on EGD Continue protonix, carafate, reglan (6) Chest pain Current Visit: Yes Status: Chronic Assessment and Plan: Likely secondary to nausea/vomiting + gastritis + anxiety Patient was started on Vistaril and Carafate (7) Severe malnutrition Current Visit: Yes Status: Acute Assessment and Plan: Severe protein calorie malnutrition Patient is unable to maintain nutrition status due to nausea and vomiting Although anxiety may play a large role in this, the patient is unable to hold food down at this time Next appropriate step at this time is consulted surgery for J-tube placement I spoke with the patient and grandmother this morning and he is receptive to discussing this with surgery (8) Anxiety Current Visit: Yes Status: Acute Assessment and Plan: Spent about 45 min discussing anxiety with patient and current home life. Patient apparently has significant anxiety at home and trouble with anger management and impulsivity. His grandmother states that he has mood swings easily. He says that he has multiple stressors at home including bills, fear of losing his house, fear about health, and social anxiety. He also has a huge fear of being labeled crazy, and does not want for his doctors to not take his health concerns seriously. He has concerns about his relationships with friends and fa amarilys as a result of the actions he takes while anxious. Patient does discuss that vistaril seems to help, but he is unsure of when to take it. We discuss indications and I encourage use. I also think that PRN benzo will be useful for him. I added BID klonopin for him at this time as second line therapy. DVT Prophylaxis: SQ heparin - Time Spent with Patient Total time spent is greater than 50% in coordination of care (as documented) at patient's floor/unit and/or counseling patient: Internal Medicine: Result - Labs CBC & Chem 7: 09/23/18 05:57 09/23/18 05:57 Labs: Short CBC 09/22/18 09/23/18 Range/Units 09:39 05:57 WBC 4.0 L 4.8 (4.3-11.1) K/mcL Hgb 12.2 L 11.1 L (12.9-16.9) g/dL Hct 34.5 L 31.4 L (37.5-50.1) % Plt Count 166 171 (140-400) K/mcL Neutrophils # 2.6 2.8 (1.6-8.9) K/mcL BMP 09/22/18 09/23/18 09:39 05:57 Sodium 136 140 Potassium 4.1 3.7 Chloride 107 106 Carbon Dioxide 26 30 H BUN 6 14 Creatinine 0.55 L 0.73 Glucose 89 111 H Calcium 9.2 9.2 Consult Discharge Plan - Plan Referrals: Juliocesar Rodriguez DO [Primary Care Provider] - (Appointment has been requested. ) <Fredrick Calderón - Last Filed: 09/23/18 15:52> Hospitalist Progress Note - Encounter Date of Encounter: 09/23/18 - Exam Vitals: Temp Pulse Resp BP Pulse Ox 97.5 F L 79 14 135/89 100 09/23/18 12:05 09/23/18 12:05 09/23/18 12:05 09/23/18 12:05 09/23/18 12:05 - Assessment and Plan (1) Prolonged QT interval Current Visit: Yes Status: Resolved (2) Hypocalcemia Current Visit: Yes Status: Resolved (3) Hypokalemia Current Visit: Yes Status: Acute (4) Abdominal pain Current Visit: Yes Status: Acute (5) Chest pain Current Visit: Yes Status: Chronic (6) Nausea & vomiting Current Visit: Yes Status: Chronic (7) Severe malnutrition Current Visit: Yes Status: Acute (8) Anxiety Current Visit: Yes Status: Acute - Time Spent with Patient Total time spent is greater than 50% in coordination of care (as documented) at patient's floor/unit and/or counseling patient: Internal Medicine: Result - Labs CBC & Chem 7: 09/23/18 05:57 09/23/18 05:57 Labs: Short CBC 09/23/18 Range/Units 05:57 WBC 4.8 (4.3-11.1) K/mcL Hgb 11.1 L (12.9-16.9) g/dL Hct 31.4 L (37.5-50.1) % Plt Count 171 (140-400) K/mcL Neutrophils # 2.8 (1.6-8.9) K/mcL BMP 09/23/18 05:57 Sodium 140 Potassium 3.7 Chloride 106 Carbon Dioxide 30 H BUN 14 Creatinine 0.73 Glucose 111 H Calcium 9.2 - Attending Attestation I examined this patient and my medical decision-making was reviewed with the Resident Physician on 09/23/18. I agree with the documented findings, disposition and treatment plan as described except to the extent set forth below . Mr Calderón is currently admitted for intractable vomiting. He remains moderate to high risk due to potential for worsening clinical status. Mr Calderón is very upset today. He is sad about Mother's Day and he is here. Potassium dropped some today. Had some emesis last night. Exam alert Comfortable Mucus membranes dry Heart not tachy No wheeze I/P 1. Intractable vomiting -treating anxiety in hopes it will help. 2. Anxiety - Zyprexa started. PRN meds 3. Hypokalemia - recheck in AM If able to keep down PO Potassium and K is normal anticipate d/c with outpatient follow up. <Saul Boo - Last Filed: 09/23/18 09:59> (1) Nausea & vomiting Qualifiers: Vomiting type: cyclical vomiting Vomiting Intractability: intractable Qualified Code(s): G43.A1 - Cyclical vomiting, intractable (5) Abdominal pain Qualifiers: Abdominal location: generalized Qualified Code(s): R10.84 - Generalized abdominal pain (6) Chest pain Qualifiers: Chest pain type: unspecified Qualified Code(s): R07.9 - Chest pain, unspecified <Fredrick Calderón - Last Filed: 09/23/18 15:52> (4) Abdominal pain Qualifiers: Abdominal location: generalized Qualified Code(s): R10.84 - Generalized abdominal pain (5) Chest pain Qualifiers: Chest pain type: unspecified Qualified Code(s): R07.9 - Chest pain, unspecified (6) Nausea & vomiting Qualifiers: Vomiting type: cyclical vomiting Vomiting Intractability: intractable Qualified Code(s): G43.A1 - Cyclical vomiting, intractable
[2018-09-23] MEDS ORDERED: clonazePAM 0.5 MG TABLET PO PRN ×2 (10:04→10:11)
[2018-09-23] MEDS: OLANZapine 5 MG TAB.RAPDIS PO SCH (20:26)
[2018-09-24] MEDS: Metoclopramide 10 MG/2 ML VIAL IVP SCH ×3 (00:42→13:04)
[2018-09-24 06:00] LABS: Basophils % 0.7 %; Eosinophils # 0.1 K/mcL (0.0-0.6); Eosinophils % 2.7 %; Hemoglobin 11.6 g/dL (12.9-16.9); Lymphocytes # 1.6 K/mcL (0.6-4.6); Lymphocytes % 38.1 %; Mean Corpuscular HGB Conc 35.2 g/dL (31.6-35.5); Mean Corpuscular Hemoglobin 31.8 pg (28.0-33.3); Mean Corpuscular Volume 90.4 fL (83.0-100.0); Mean Platelet Volume 9.1 fL (9.4-12.4); Monocytes # 0.4 K/mcL (0.0-1.3); Monocytes % 9.3 %; Platelet Count 166 K/mcL (140-400); Red Blood Count 3.65 M/mcL (4.19-5.50); Red Cell Distribution Width 13.6 % (11.5-14.5); Segmented Neutrophils % 49.2 %
[2018-09-24 06:19] LABS: BUN/Creatinine Ratio 15 (6-26); Blood Urea Nitrogen 11 mg/dL (6-20); Calcium 9.7 mg/dL (8.6-10.3); Carbon Dioxide 29 mEq/L (23-29); Chloride 103 mEq/L (98-107); Glucose 96 mg/dL (70-105); Osmolality,Calculated 287 (280-300); Sodium 139 mEq/L (136-145); eGFR For Non-African Americans > 60 (> 60)
[2018-09-24] MEDS: *HR* Heparin 5,000 UNIT/ML VIAL SQ SCH (07:02)
[2018-09-24] MEDS ORDERED: Pantoprazole 40 MG VIAL IVP SCH (09:00)
[2018-09-24] MEDS: Sucralfate 1 GM TABLET PO SCH ×2 (09:35→13:04)
[2018-09-24] MEDS: Potassium Chloride Elixir 20 MEQ/15 ML UDC PO SCH (09:36)
[2018-09-24 11:29] VITALS: BP 113/84
--- NOTE | 2018-09-24 13:37 | Discharge Summary ---
<Raad Judd - Last Filed: 09/24/18 15:47> - NOTES TO OUTPATIENT PROVIDER Notes to Outpatient Provider: Patient started on zyprexa and klonopin. Was hypokalemic and started on BID replacement - he is to get a BMP prior to follow- up appointment Date of Encounter: 09/24/18 Time of Encounter: 10:15 - Discharge Diagnosis (1) Nausea & vomiting Priority: Primary Status: Chronic Qualifiers: Vomiting type: cyclical vomiting Vomiting Intractability: intractable Qualified Code(s): G43.A1 - Cyclical vomiting, intractable (2) Abdominal pain Priority: Secondary Status: Acute Qualifiers: Abdominal location: generalized Qualified Code(s): R10.84 - Generalized abdominal pain (3) Hypocalcemia Priority: Secondary Status: Resolved (4) Hypokalemia Priority: Secondary Status: Acute (5) Severe malnutrition Priority: Secondary Status: Acute (6) Prolonged QT interval Priority: Secondary Status: Resolved Hospital course: Mr. Calderón is a 23 year old male with PMH of GERD, esophageal strictures, and anxiety, admitted on 09/16/18 for worsening chronic abdominal pain, N/V, chest pain, and episode of syncope. His symptoms were worsened with PO intake and globus sensation. He also reported a 17# weight loss over 2-3 weeks. He reported to have had 3 dilations, multiple EGD's and colonoscopies that he reports has only found esophageal stricture, polyp, and hemorrhoids. CT abdomen and pelvis showed no acute findings. Gallbladder ultrasound E with small sludge, but no stones or pericholecystic fluid. KG with prolonged QT interval. Troponins negative. Patient was found to be severely hypokalemic at 1.9. After K replacement and treatment of the patient's symptoms, his QT prolongation resolved. Echo with EF 60-65% and no abnormal findings. Evaluation by cardiology without other recommendations. EGD showed no endoscopic abnormality to explain dysphagia, showed mild diffuse gastritis and concern for gastroparesis. He was treated with reglan during his admission. A gastric emptying study was considered, however the patient was not able to go 48 hours without antiemetics. He was also evaluated by psychiatry and started on zyprexa. They felt his behavior was not bulemia in nature, but more related to his anxiety and attention-seeking behavior. He was witnessed multiple times wretching and seemingly trying to force himself to vomit. Eventually he was started on klonopin BID PRN and this seemed to help his anxiety and his vomiting. He is to follow-up with psychiatry and counseling as an outpatient. He has not fully had a work-up for globus sensation so he will need ENT evaluation as an out-patient. His symptoms improved throughout his admission. He eventually was able to tolerate by mouth intake, by mouth medications, and felt comfortable with discharge. His potassium remained stable 0.0 at discharge. He is to continue twice daily potassium replacement. He is to follow-up with his new PCP in 5 days, with recheck of potassium at that time. Discharge discussed with: patient - Time Spent with Patient Total time spent providing and/or coordinating discharge services: - Discharge Medications Prescriptions: New Sucralfate [Carafate] 1 gm PO QIDAC #120 tablet hydrOXYzine pamoate [HydrOXYzine Pamoate] 50 mg PO Q6H PRN #120 capsule PRN Reason: Anxiety clonazePAM [Klonopin] 0.5 mg PO BID PRN 5 Days #9 tablet PRN Reason: Anxiety (second line) Potassium Chloride Elixir [Potassium Chloride] 20 meq PO BID #60 udc OLANZapine [Zyprexa Zydis] 5 mg PO HS #30 tab.rapdis Metoclopramide [Reglan] 5 mg PO Q6HR #60 tablet Continued Pantoprazole Sodium 40 mg PO DAILY Hydrocortisone/Pramoxine [Analpram Hc 2.5%-1% Lotion] 1 appl RC TID PRN PRN Reason: HEMROIDS Hydrocortisone [Proctosol-Hc] 1 appl RC BID PRN PRN Reason: HEMROIDS Discontinued dimenhyDRINATE [Dramamine] 50 mg PO DAILY PRN PRN Reason: MOTION SICKNESS/NAUSEA Home Medications: Hydrocortisone [Proctosol-Hc] 1 appl RC BID PRN 09/16/18 [History] Hydrocortisone/Pramoxine [Analpram Hc 2.5%-1% Lotion] 1 appl RC TID PRN 09/16/18 [History] Pantoprazole Sodium 40 mg PO DAILY 09/16/18 [History] Metoclopramide [Reglan] 5 mg PO Q6HR #60 tablet 09/24/18 [Rx] OLANZapine [Zyprexa Zydis] 5 mg PO HS #30 tab.rapdis 09/24/18 [Rx] Potassium Chloride Elixir [Potassium Chloride] 20 meq PO BID #60 udc 09/24/18 [Rx] Sucralfate [Carafate] 1 gm PO QIDAC #120 tablet 09/24/18 [Rx] clonazePAM [Klonopin] 0.5 mg PO BID PRN 5 Days #9 tablet 09/24/18 [Rx] hydrOXYzine pamoate [HydrOXYzine Pamoate] 50 mg PO Q6H PRN #120 capsule 09/24/18 [Rx] Allergies/Adverse Reactions: Allergy/AdvReac Type Severity Reaction Status Date / Time No Known Allergies Allergy Verified 02/08/18 13:03 Date of admission: 09/16/18 19:28 Primary care physician: Juliocesar Rodriguez DO Consults: 09/16/18 05:31 Consult to Cardiology [CONS] Routine Comment: Consulting Provider: Cardiology [facility] Reason for Consult: Prolonged QT interval on EKG. No previous EKG on file for comparison. Has been having near snycope past few weeks and had episode of syncope today. Also reports chest pain since May. Call Completed: No 09/16/18 05:33 Consult to Gastroenterology [CONS] Routine Consulting Provider: Gastroenterology [facility] Reason for Consult: Follows regularly with [facility]. Presents for persistent abdominal pain, nausea, vomiting, constipation with 17 pound weight loss in past 2-3 weeks. Has elevated bilirubin on presentation of unknown origin. Call Completed: No 09/16/18 10:00 Consult to Nephrology [CONS] Routine Consulting Provider: [facility]/DOUGLAS/BILL/THOMAS Reason for Consult: Hypokalemia, per Dr. Jacquelin Ortega Call Completed: Yes 09/18/18 07:42 Consult to Inletter [CONS] Routine Reason for SW Consult: Community resources regarding counseling 09/19/18 10:42 Consult to Surgery [CONS] Routine Consulting Provider: Acute Care Surgery Reason for Consult: Needs J Tube Call Completed: Yes 09/20/18 10:13 Consult to Psychiatry [CONS] Routine Consulting Provider: Psychiatry Lisa Reason consult: Other Other reason and/or additional details: Patient has intractable nausea and vomiting likely psychiatric origin. Anxiety likely playing a role, and now there is witnessed behaviors concerning for binge eating as a problem as well. Concern for ability to maintain nutritional status if he is disharged and surgery does not want to place a j-tube. Reconsult for other potential treatment options or possible transfer to [facility]. Discharging clinician: Raad Judd Anticipated date of discharge: 09/24/18 - Constitutional Vitals: Temp Pulse Resp BP Pulse Ox 97.5 F L 100 15 113/84 94 09/24/18 11:25 09/24/18 11:25 09/24/18 11:25 09/24/18 11:25 09/24/18 11:25 General appearance: Present: A&O X 3 Exam: GEN: No acute distress, A&O3, thin HEAD: Atraumatic, normocephalic EYES: Pupils symmetric, sclera white, conjunctiva pink HEART: RRR, normal S1 and S2, no murmurs LUNGS: Clear to auscultation bilaterally, no wheezes, rhonchi, or crackles NEURO: No focal deficits, cooperative with exam SKIN: pale, no rashes or lesions PSYCH: mood is "anxious" and affect reactive - Patient Status Disposition: Home, Self-Care Condition: Fair Functional capacity at discharge: independent ambulation Overall status at discharge: patient is progressing back to baseline - Ambulatory Orders Ambulatory Orders: Basic Metabolic Panel [CHEM] Time Frame: 3 Days, Facility: [facility], Location: Lab - Discharge Instructions Follow Up With: Juliocesar Rodriguez DO [Primary Care Provider] - (Appointment has been requested. ) Saul Boo DO [Resident] - Jessica Chairez MD [Non-Partnered Physician] - Betty Alvarez DO [Non-Partnered Physician] - Additional Instructions: Please take your medications as prescribed - you may use the vistaril every 6 hours as needed and the klonopin twice daily as needed for anxiety - continue to take reglan for nausea - take the olanzepine daily - take your potassium supplement twice daily Please follow-up with Dr. Boo on Monday09/28/18 - please get labs drawn on 09/27 or in the morning on 09/28, so Dr. Boo can see your potassium level Please follow-up with ENT, Psychiatry, and [facility] Please seek medical attention if your symptoms worsen - Diet and Activity Activity: increase activity as tolerated Diet: advance to your usual diet <Fredrick Calderón - Last Filed: 09/24/18 17:39> Date of Encounter: 09/24/18 - Discharge Diagnosis (1) Prolonged QT interval Status: Resolved (2) Hypocalcemia Status: Resolved (3) Hypokalemia Status: Acute (4) Abdominal pain Status: Acute Qualifiers: Abdominal location: generalized Qualified Code(s): R10.84 - Generalized abdominal pain (5) Chest pain Priority: Secondary Status: Chronic Qualifiers: Chest pain type: unspecified Qualified Code(s): R07.9 - Chest pain, unspecified (6) Nausea & vomiting Status: Chronic Qualifiers: Vomiting type: cyclical vomiting Vomiting Intractability: intractable Qualified Code(s): G43.A1 - Cyclical vomiting, intractable (7) Severe malnutrition Status: Acute (8) Anxiety Priority: Secondary Status: Acute Hospital course: Mr. Calderón is a 23 year old male - Time Spent with Patient Total time spent providing and/or coordinating discharge services: 25min Date of admission: 09/16/18 19:28 Primary care physician: Juliocesar Rodriguez DO Consults: 09/16/18 05:31 Consult to Cardiology [CONS] Routine Comment: Consulting Provider: Cardiology [facility] Reason for Consult: Prolonged QT interval on EKG. No previous EKG on file for comparison. Has been having near snycope past few weeks and had episode of syncope today. Also reports chest pain since May. Call Completed: No 09/16/18 05:33 Consult to Gastroenterology [CONS] Routine Consulting Provider: Gastroenterology [facility] Reason for Consult: Follows regularly with [facility]. Presents for persistent abdominal pain, nausea, vomiting, constipation with 17 pound weight loss in past 2-3 weeks. Has elevated bilirubin on presentation of unknown origin. Call Completed: No 09/16/18 10:00 Consult to Nephrology [CONS] Routine Consulting Provider: [facility]/DOUGLAS/BILL/THOMAS Reason for Consult: Hypokalemia, per Dr. Jacquelin Ortega Call Completed: Yes 09/18/18 07:42 Consult to Inletter [CONS] Routine Reason for SW Consult: Community resources regarding counseling 09/19/18 10:42 Consult to Surgery [CONS] Routine Consulting Provider: Acute Care Surgery Reason for Consult: Needs J Tube Call Completed: Yes 09/20/18 10:13 Consult to Psychiatry [CONS] Routine Consulting Provider: Psychiatry Lisa Reason consult: Other Other reason and/or additional details: Patient has intractable nausea and vomiting likely psychiatric origin. Anxiety likely playing a role, and now there is witnessed behaviors concerning for binge eating as a problem as well. Concern for ability to maintain nutritional status if he is disharged and surgery does not want to place a j-tube. Reconsult for other potential treatment options or possible transfer to higher level of care. - Constitutional Vitals: Temp Pulse Resp BP Pulse Ox 97.5 F L 100 15 113/84 94 09/24/18 11:25 09/24/18 11:25 09/24/18 11:25 09/24/18 11:25 09/24/18 11:25 - Attending Attestation I examined this patient and my medical decision-making was reviewed with the Resident Physician on 09/24/18. I agree with the documented findings, disposition and treatment plan as described except to the extent set forth below. Mr Calderón has been admitted for intractable nausea and vomiting with electrolyte imbalance. He was given fluids and supplementation. He was evaluated by psychiatry and meds started for anxiety. He has globus sensation. His K is now normal and he is afebrile. He is ready for discharge home and outpatient follow up. Exam alert Comfortable Not tachycardic No wheeze No edema Plan D/C home today.
== END 2018-09-24 15:45 | disposition home or self-care (01) | DRG 254 ==
LOC: EMEROOARM 22:34 → 3BNU 22:34 → 2NENU 09-16 10:37 → SUATTDRO 09-16 19:28 → 3NENU 09-20 18:24
PROVIDERS: ADMIT Pediatrics; ATTEND Internal Medicine
PROC: ENDOEBX (2018-09-17 13:00)

== ENCOUNTER 2019-05-28 12:36 | Observation (INO) ==
[2019-05-28] MEDS ORDERED: Potassium Chloride Elixir 20 MEQ/15 ML UDC PO ONE (13:17)
[2019-05-28 13:42] LABS: Bilirubin,Urine Negative (Negative); Blood,Urine Negative (Negative); Clarity,Urine Clear (Clear); Color,Urine Yellow (Yellow); Glucose,Urine (UA) Normal (Normal); Ketones,Urine Negative (Negative); Leukocyte Esterase,Urine Negative (Negative); Nitrite,Urine Negative (Negative); PH,Urine 8.5 pH Units (5.0-8.0); Protein,Urine 30 mg/dL (Neg-Trace); Urobilinogen,Urine Normal (Normal)
[2019-05-28 13:46] LABS: Alanine Aminotransferase 11 Units/L (7-52); Albumin 4.3 g/dL (3.5-5.7); Albumin/Globulin Ratio 1.1 (1.1-2.2); Alkaline Phosphatase 93 Units/L (34-104); Aspartate Amino Transferase 27 Units/L (13-39); BUN/Creatinine Ratio 12 (6-26); Bilirubin,Direct 0.2 mg/dL (0.0-0.2); Bilirubin,Indirect 0.5 mg/dL (0.0-1.0); Bilirubin,Total 0.7 mg/dL (0.3-1.0); Blood Urea Nitrogen 11 mg/dL (6-20); Calcium 9.7 mg/dL (8.6-10.3); Carbon Dioxide 39 mEq/L (23-29); Chloride 68 mEq/L (98-107); Globulin 3.8 g/dL (2.4-3.5); Glucose 102 mg/dL (70-105); Lipase 14 Units/L (11-82); Osmolality,Calculated 252 (280-300); Potassium 2.2 mEq/L (3.5-5.1); Sodium 121 mEq/L (136-145); Total Protein 8.1 g/dL (6.4-8.9); eGFR For African Americans > 60 (> 60); eGFR For Non-African Americans > 60 (> 60)
[2019-05-28 13:47] LABS: Bacteria,Urine None Seen per hpf (None-Few); Hyaline Casts,Urine None Seen per lpf (None-Few); Squamous Epithelial Cell,Urine Many per lpf (None-Few); WBC,Urine 0-3 per hpf (0-3)
[2019-05-28 13:57] LABS: Magnesium 1.9 mg/dL (1.6-2.6)
[2019-05-28 15:07] LABS: Basophils % 0.9 %; Immature Granulocytes % 0.9 % (0-4); Immature Platelets 2.4 % (1.1-6.1); Lymphocytes % 18.5 %; Mean Corpuscular Hemoglobin 31.2 pg (28.0-33.3); Mean Corpuscular Volume 84.9 fL (83.0-100.0); Monocytes % 6.5 %; Red Cell Distribution Width 14.2 % (11.5-14.5); Segmented Neutrophils % 73.2 %
[2019-05-28 15:08] LABS: Mean Platelet Volume 8.8 fL (9.4-12.4); Platelet Count 178 K/mcL (140-400)
[2019-05-28 15:09] LABS: Mean Corpuscular HGB Conc 36.7 g/dL (31.6-35.5)
[2019-05-28 15:11] LABS: Hematocrit 35.8 % (37.5-50.1); Hemoglobin 13.6 g/dL (12.9-16.9); Red Blood Count 4.36 M/mcL (4.19-5.50)
[2019-05-28] MEDS ORDERED: Naloxone 0.4 MG/ML INJ IVP PRN (15:13)
[2019-05-28] MEDS ORDERED: Acetaminophen 325 MG TABLET PO PRN (15:13)
[2019-05-28 15:14] LABS: Neutrophils # 2.9 K/mcL (1.6-8.9)
[2019-05-28 15:15] LABS: Lymphocytes # 0.7 K/mcL (0.6-4.6)
[2019-05-28 15:16] LABS: Monocytes # 0.3 K/mcL (0.0-1.3)
[2019-05-28] MEDS ORDERED: 0.9 % Sodium Chloride w KCl 40 MEQ/1,000 ML MLS IVC SCH (15:30)
[2019-05-28] MEDS ORDERED: hydrOXYzine pamoate 25 MG CAPSULE PO PRN (16:04)
[2019-05-28] MEDS: Potassium Chloride Elixir 20 MEQ/15 ML UDC PO SCH (17:28)
[2019-05-28] MEDS: Sucralfate 1 GM TABLET PO SCH ×2 (17:28→22:00)
[2019-05-28 18:23] LABS: BUN/Creatinine Ratio 10 (6-26); Blood Urea Nitrogen 8 mg/dL (6-20); Calcium 9.9 mg/dL (8.6-10.3); Carbon Dioxide 40 mEq/L (23-29); Chloride 73 mEq/L (98-107); Glucose 99 mg/dL (70-105); Osmolality,Calculated 256 (280-300); Sodium 124 mEq/L (136-145); eGFR For African Americans > 60 (> 60); eGFR For Non-African Americans > 60 (> 60)
[2019-05-28] MEDS: OLANZapine 5 MG TAB.RAPDIS PO SCH (22:00)
[2019-05-28] MEDS ORDERED: Melatonin 3 MG TABLET PO ONE (22:11)
[2019-05-28] MEDS: *HR* Heparin 5,000 UNIT/ML VIAL SQ SCH (22:30)
[2019-05-28] MEDS: Ondansetron 4 MG/2 ML VIAL IVP PRN (22:31)
[2019-05-28 23:34] LABS: ABG Base Excess 17 mEq/L (-2 to 3); ABG HCO3 42 mEq/L (21-27); ABG Oxygen Saturation 98 % (95-98); ABG PCO2 50 mmHg (35-45); ABG PH 7.53 pH Units (7.32-7.45); ABG PO2 98 mmHg (85-104); ABG TCO2 43 mEq/L (20-26)
[2019-05-29 05:43] LABS: Prothrombin Time 11.9 Seconds (9.4-12.1)
[2019-05-29 05:45] LABS: Activated Partial Thrombo Time 30.3 Seconds (26.0-36.0)
[2019-05-29 06:02] LABS: Phosphorous 3.7 mg/dL (2.7-4.5)
[2019-05-29] MEDS: *HR* Heparin 5,000 UNIT/ML VIAL SQ SCH ×3 (06:04→21:38)
[2019-05-29 06:06] LABS: Basophils % 0.5 %; Hematocrit 31.8 % (37.5-50.1); Hemoglobin 11.8 g/dL (12.9-16.9); Immature Granulocytes % 0.2 % (0-4); Lymphocytes # 1.3 K/mcL (0.6-4.6); Lymphocytes % 31.4 %; Mean Corpuscular HGB Conc 37.1 g/dL (31.6-35.5); Mean Corpuscular Hemoglobin 31.6 pg (28.0-33.3); Monocytes # 0.4 K/mcL (0.0-1.3); Neutrophils # 2.3 K/mcL (1.6-8.9); Platelet Count 167 K/mcL (140-400); Red Blood Count 3.74 M/mcL (4.19-5.50); Red Cell Distribution Width 12.4 % (11.5-14.5); Segmented Neutrophils % 57.9 %
[2019-05-29] MEDS: Potassium Chloride Elixir 20 MEQ/15 ML UDC PO SCH ×2 (08:31→17:37)
[2019-05-29] MEDS: Sucralfate 1 GM TABLET PO SCH ×4 (08:31→21:38)
[2019-05-29 08:41] LABS: BUN/Creatinine Ratio 9 (6-26); Blood Urea Nitrogen 7 mg/dL (6-20); Calcium 9.1 mg/dL (8.6-10.3); Carbon Dioxide 38 mEq/L (23-29); Chloride 80 mEq/L (98-107); Glucose 94 mg/dL (70-105); Osmolality,Calculated 262 (280-300); Potassium 2.4 mEq/L (3.5-5.1); Sodium 127 mEq/L (136-145); eGFR For African Americans > 60 (> 60); eGFR For Non-African Americans > 60 (> 60)
[2019-05-29] MEDS: 0.9 % Sodium Chloride 1,000 ML IVC SCH (12:28)
[2019-05-29] MEDS: Ondansetron 4 MG/2 ML VIAL IVP PRN ×2 (14:41→22:54)
[2019-05-29 15:57] LABS: BUN/Creatinine Ratio 10 (6-26); Blood Urea Nitrogen 8 mg/dL (6-20); Calcium 8.7 mg/dL (8.6-10.3); Carbon Dioxide 37 mEq/L (23-29); Chloride 88 mEq/L (98-107); Glucose 88 mg/dL (70-105); Osmolality,Calculated 270 (280-300); Potassium 2.9 mEq/L (3.5-5.1); Sodium 131 mEq/L (136-145); eGFR For African Americans > 60 (> 60); eGFR For Non-African Americans > 60 (> 60)
[2019-05-29] MEDS: OLANZapine 5 MG TAB.RAPDIS PO SCH (21:38)
[2019-05-30] MEDS: 0.9 % Sodium Chloride 1,000 ML IVC SCH ×2 (01:43→11:54)
[2019-05-30] MEDS: *HR* Heparin 5,000 UNIT/ML VIAL SQ SCH ×3 (05:20→20:35)
[2019-05-30] MEDS ORDERED: 0.9 % Sodium Chloride 500 ML IVC ONE (05:22)
[2019-05-30 05:53] LABS: Basophils % 0.6 %; Eosinophils # 0.1 K/mcL (0.0-0.6); Eosinophils % 1.5 %; Hematocrit 29.3 % (37.5-50.1); Hemoglobin 10.3 g/dL (12.9-16.9); Immature Granulocytes % 0.3 % (0-4); Lymphocytes % 46.8 %; Mean Corpuscular HGB Conc 35.2 g/dL (31.6-35.5); Mean Corpuscular Hemoglobin 31.1 pg (28.0-33.3); Mean Corpuscular Volume 88.5 fL (83.0-100.0); Mean Platelet Volume 9.1 fL (9.4-12.4); Monocytes # 0.3 K/mcL (0.0-1.3); Monocytes % 7.8 %; Neutrophils # 1.4 K/mcL (1.6-8.9); Platelet Count 130 K/mcL (140-400); Red Blood Count 3.31 M/mcL (4.19-5.50); Red Cell Distribution Width 12.6 % (11.5-14.5); White Blood Count 3.3 K/mcL (4.3-11.1)
[2019-05-30 06:00] LABS: Lymphocytes # 1.5 K/mcL (0.6-4.6)
[2019-05-30 06:21] LABS: BUN/Creatinine Ratio 10 (6-26); Blood Urea Nitrogen 6 mg/dL (6-20); Calcium 8.3 mg/dL (8.6-10.3); Carbon Dioxide 33 mEq/L (23-29); Chloride 91 mEq/L (98-107); Glucose 88 mg/dL (70-105); Osmolality,Calculated 269 (280-300); Potassium 2.6 mEq/L (3.5-5.1); Sodium 131 mEq/L (136-145); eGFR For African Americans > 60 (> 60); eGFR For Non-African Americans > 60 (> 60)
[2019-05-30] MEDS: Sucralfate 1 GM TABLET PO SCH ×4 (08:05→20:33)
[2019-05-30] MEDS: Potassium Chloride Elixir 20 MEQ/15 ML UDC PO SCH ×2 (08:05→16:33)
[2019-05-30] MEDS: Ondansetron 4 MG/2 ML VIAL IVP PRN ×2 (14:43→22:54)
[2019-05-30] MEDS: 0.9 % Sodium Chloride w KCl 40 MEQ/1,000 ML MLS IVC SCH (16:33)
[2019-05-30 18:36] LABS: Potassium,Urine 23.8 mEq/L; Sodium, Urine 189.2 mEq/L
[2019-05-30] MEDS ORDERED: Melatonin 3 MG TABLET PO ONE (20:33)
[2019-05-30] MEDS: OLANZapine 5 MG TAB.RAPDIS PO SCH (20:33)
[2019-05-31] MEDS: 0.9 % Sodium Chloride w KCl 40 MEQ/1,000 ML MLS IVC SCH (03:11)
[2019-05-31 05:48] LABS: Basophils % 0.9 %; Eosinophils # 0.1 K/mcL (0.0-0.6); Eosinophils % 1.5 %; Hematocrit 30.1 % (37.5-50.1); Hemoglobin 10.3 g/dL (12.9-16.9); Lymphocytes # 1.7 K/mcL (0.6-4.6); Lymphocytes % 52.4 %; Mean Corpuscular HGB Conc 34.2 g/dL (31.6-35.5); Mean Corpuscular Hemoglobin 31.3 pg (28.0-33.3); Mean Corpuscular Volume 91.5 fL (83.0-100.0); Mean Platelet Volume 8.7 fL (9.4-12.4); Monocytes # 0.2 K/mcL (0.0-1.3); Monocytes % 5.2 %; Neutrophils # 1.3 K/mcL (1.6-8.9); Platelet Count 127 K/mcL (140-400); Red Blood Count 3.29 M/mcL (4.19-5.50); Red Cell Distribution Width 12.7 % (11.5-14.5); White Blood Count 3.3 K/mcL (4.3-11.1)
[2019-05-31 06:11] LABS: BUN/Creatinine Ratio 13 (6-26); Blood Urea Nitrogen 7 mg/dL (6-20); Calcium 8.2 mg/dL (8.6-10.3); Carbon Dioxide 32 mEq/L (23-29); Chloride 95 mEq/L (98-107); Glucose 84 mg/dL (70-105); Osmolality,Calculated 269 (280-300); Potassium 3.5 mEq/L (3.5-5.1); Sodium 131 mEq/L (136-145); eGFR For African Americans > 60 (> 60); eGFR For Non-African Americans > 60 (> 60)
[2019-05-31] MEDS: *HR* Heparin 5,000 UNIT/ML VIAL SQ SCH (06:48)
[2019-05-31 07:09] VITALS: BP 100/66
[2019-05-31] MEDS: Potassium Chloride Elixir 20 MEQ/15 ML UDC PO SCH (08:18)
[2019-05-31] MEDS: Sucralfate 1 GM TABLET PO SCH ×2 (08:18→11:52)
== END 2019-05-31 15:51 | disposition home or self-care (01) ==
LOC: EMEROOARM 12:36 → 2ANU 12:36 → SUATTDRO 15:45 → 2ANU 16:28
PROVIDERS: ADMIT Internal Medicine; ATTEND Student in an Organized Health Care Education/Training Program